=== PATIENT | female | born 1950 | race African-American/Black ===

== ENCOUNTER 2017-06-21 01:36 | Emergency (ER) | payer MEDICARE ==
[2017-06-21] MEDS ORDERED: MAGNESIUM SULFATE/D5W 2 GM/200 ML RTUPB IV ONE (01:42)
[2017-06-21] MEDS ORDERED: IPRATROPIUM/ALBUTEROL 0.5-2.5 MG/3 ML AMPUL NEB ONE (01:44)
[2017-06-21 02:02] LABS: ABSOLUTE BASOPHILS # (AUTO) 0.1 10^3/uL (0.0-0.2); ABSOLUTE EOSINOPHILS # (AUTO) 0.1 10^3/uL (0.0-0.6); ABSOLUTE LYMPHOCYTES (AUTO) 0.6 10^3/uL (0.5-4.7); ABSOLUTE MONOCYTES (AUTO) 0.5 10^3/uL (0.1-1.4); ABSOLUTE NEUT (AUTO) 5.2 10^3/uL (1.7-8.2); BASOPHILS % (AUTO) 0.8 % (0-2); EOSINOPHILS % (AUTO) 1.9 % (0-6); HEMATOCRIT 40.6 % (36.0-47.0); HEMOGLOBIN 13.5 g/dL (12.0-15.5); LYMPHOCYTES % (AUTO) 9.6 % (13-45); MEAN CORPUSCULAR HEMOGLOBIN 28.1 pg (27.0-33.4); MEAN CORPUSCULAR HGB CONC 33.4 g/dL (32.0-36.0); MEAN CORPUSCULAR VOLUME 84 fl (80-97); MONOCYTES % (AUTO) 8.1 % (3-13); PLATELET COUNT 259 10^3/uL (150-450); RED BLOOD COUNT 4.82 10^6/uL (3.72-5.28); RED CELL DISTRIBUTION WIDTH 15.1 % (11.5-14.0); SEGMENTED NEUTROPHILS % (AUTO) 79.6 % (42-78); TOTAL CELLS COUNTED % (AUTO) 100 %; WHITE BLOOD COUNT 6.6 10^3/uL (4.0-10.5)
[2017-06-21 02:19] LABS: ALANINE AMINOTRANSFERASE 29 U/L (9-52); ALBUMIN 4.5 g/dL (3.5-5.0); ALKALINE PHOSPHATASE 74 U/L (38-126); ANION GAP 8 (5-19); ASPARTATE AMINO TRANSFERASE 22 U/L (14-36); BILIRUBIN,DIRECT 0.3 mg/dL (0.0-0.4); BILIRUBIN,TOTAL 0.8 mg/dL (0.2-1.3); BLOOD UREA NITROGEN 17 mg/dL (7-20); CALCIUM 9.6 mg/dL (8.4-10.2); CARBON DIOXIDE 31 mmol/L (22-30); CHLORIDE 103 mmol/L (98-107); CREATINE KINASE 198 U/L (30-135); GLUCOSE 137 mg/dL (75-110); POTASSIUM 4.1 mmol/L (3.6-5.0); SODIUM 142.4 mmol/L (137-145); TOTAL PROTEIN 7.5 g/dL (6.3-8.2)
[2017-06-21 02:30] LABS: NT PRO BNP 92 pg/mL (5-900)
[2017-06-21 02:31] LABS: TROPONIN I < 0.012 ng/mL
[2017-06-21 02:38] LABS: VENOUS BLOOD BASE EXCESS 4.4 mmol/L; VENOUS BLOOD HCO3 32.4 mmol/L (20-32); VENOUS BLOOD PCO2 64.1 mmHg (35-63); VENOUS BLOOD PH 7.32 (7.30-7.42)
--- NOTE | 2017-06-21 02:43 | ER Document Report ---
ED Respiratory Problem - General Chief Complaint: Breathing Difficulty Stated Complaint: BREATHING DIFFICULTY Time Seen by Provider: 06/21/17 01:43 Notes: The patient is a 66-year-old female, past medical history COPD (on home 2-4 L O2 ), hypertension, presents with increasing shortness of breath over the past 3 hours. When EMS arrived, she was tripoding and found to be in the low 80's on her home O2. She received 125 mg Solu-Medrol and 7.5 mg albuterol by EMS prior to arrival. Patient says she feels slightly better after the breathing treatments, she is still short of breath. She denies chest pain, leg swelling, cough, fevers, hemoptysis, nausea, vomiting, back pain, headache, numbness, tingling or rash. TRAVEL OUTSIDE OF THE [place] IN LAST 30 DAYS: No - Related Data Allergies/Adverse Reactions: fluticasone [From Advair Diskus] Adverse Reaction (Verified 06/21/17 02:25) salmeterol [From Advair Diskus] Adverse Reaction (Verified 06/21/17 02:25) Past Medical History - General Information source: Patient - Social History Smoking Status: Current Every Day Smoker Frequency of alcohol use: None Drug Abuse: None Family History: Reviewed & Not Pertinent Patient has suicidal ideation: No Patient has homicidal ideation: No - Past Medical History Cardiac Medical History: Reports: Hx Hypercholesterolemia, Hx Hypertension Pulmonary Medical History: Reports: Hx COPD Renal/ Medical History: Denies: Hx Peritoneal Dialysis Past Surgical History: Reports: Hx Cholecystectomy, Hx Orthopedic Surgery - left ankle, Hx Tonsillectomy Review of Systems - Review of Systems Notes: REVIEW OF SYSTEMS: CONSTITUTIONAL: -fevers, -chills EENT: -eye pain, -difficulty swallowing, -nasal congestion CARDIOVASCULAR: -chest pain, -syncope. RESPIRATORY: -cough, +SOB GASTROINTESTINAL: -abdominal pain, -nausea, -vomiting, -diarrhea GENITOURINARY: -dysuria, -hematuria MUSCULOSKELETAL: -back pain, -neck pain SKIN: -rash or skin lesions. HEMATOLOGIC: -easy bruising or bleeding. LYMPHATIC: -swollen, enlarged glands. NEUROLOGICAL: -altered mental status or loss of consciousness, -headache, - neurologic symptoms PSYCHIATRIC: -anxiety, -depression. ALL OTHER SYSTEMS REVIEWED AND NEGATIVE. Physical Exam - Vital signs Vitals: Pulse Resp 84 24 H 06/21/17 01:36 06/21/17 01:36 - Notes Notes: PHYSICAL EXAMINATION: GENERAL: Well-appearing, well-nourished and in no acute distress. HEAD: Atraumatic, normocephalic. EYES: Pupils equal round and reactive to light, extraocular movements intact, sclera anicteric, conjunctiva are normal. ENT: nares patent, oropharynx clear without exudates. Moist mucous membranes. NECK: Normal range of motion, supple without lymphadenopathy LUNGS: Mild tachypnea. Decreased air movement. End-expiratory wheezing. HEART: Regular rate and rhythm without murmurs ABDOMEN: Soft, nontender, normoactive bowel sounds. No guarding, no rebound. No masses appreciated. EXTREMITIES: Normal range of motion, no pitting or edema. No cyanosis. NEUROLOGICAL: Cranial nerves grossly intact. Normal speech, normal gait. Normal sensory and motor exams. PSYCH: Normal mood, normal affect. SKIN: Warm, Dry, normal turgor, no rashes or lesions noted. Course - Re-evaluation Re-evalutation: Patient seen immediately on arrival. She is able to speak in 4 word sentences. She has tried BiPAP in the past and this is helped. Patient was placed on BiPAP with improvement of her respiratory status and wheezing. She was moving more air after 2 duonebs and magnesium. She has already received Solu-Medrol and 3 albuterol nebulizers by EMS prior to arrival. Her chest x-ray did not show any acute findings and blood work was unremarkable, including a negative d- dimer that rules out a PE. No chest pain and EKG and troponin do not show evidence of active ischemia. Patient was transitioned from BiPAP mask back to her 4 L nasal cannula that she wears at home. However, she walked 3 steps and became very dyspneic again with return of her wheezing. Patient provided continuous albuterol and will need admission for further evaluation and treatment of her severe COPD exacerbation. Her primary care physician is Dr. Mack and her business relations manager is Dr. Platt. 06/21/17 04:[address] Gutierrez (Hospitalist) and he saw the patient after she had just received 10 mg albuterol. She was taken off her BiPAP and placed back on her home 2 L nasal cannula. She was then re-ambulated about 100 feet and she did not have any desaturations below 91%. Her respiratory status also improved and she did not become short of breath. Spoke to patient and offered her admission still, but patient would like to go home since she is feeling better. She is requesting a refill of her ipratropium. Will send home with 4 more days of prednisone and follow-up at her business relations manager. Given very strict return precautions and she understands. - Vital Signs Vital signs: Temp Pulse Resp BP Pulse Ox 84 21 H 152/70 H 100 06/21/17 01:36 06/21/17 04:01 06/21/17 04:01 06/21/17 04:01 - Laboratory Result Diagrams: 06/21/17 01:45 06/21/17 01:45 Laboratory results interpreted by me: 06/21/17 06/21/17 06/21/17 01:45 01:45 01:45 RDW 15.1 H Seg Neutrophils % 79.6 H Lymphocytes % 9.6 L VBG pCO2 64.1 H VBG HCO3 32.4 H Carbon Dioxide 31 H Est GFR (Non-Af Amer) 52 L Glucose 137 H Creatine Kinase 198 H - Diagnostic Test Radiology reviewed: Image reviewed, Reports reviewed Radiology results interpreted by me: CXR: NAD - EKG Interpretation by Me EKG shows normal: Sinus rhythm, [place], Intervals, QRS Complexes, ST-T Waves Rate: Normal When compared to previous EKG there are: Previous EKG unavailable Critical Care Note - Critical Care Note Total time excluding time spent on procedures (mins): 35 Discharge - Discharge Clinical Impression: COPD exacerbation Condition: Stable Disposition: HOME, SELF-CARE Additional Instructions: BRONCHITIS WITH BRONCHOSPASM (WHEEZING): You have bronchitis with bronchospasm (wheezing). Sometimes people develop wheezing with a chest cold. This occurs either because of an underlying tendency toward asthma or because the virus itself irritates the bronchial tubes. This irritation causes cough, shortness of breath, and wheezing. Emergency treatment of bronchospasm may include adrenaline shots or bronchodilator aerosol. You may feel lightheaded and have a rapid pulse for an hour or two. Rest and get plenty of fluids. At home, we'll treat you with a bronchodilator inhaler. Corticosteroids may be required for some patients. Until you recover, avoid chemical fumes, dusts, pollens, and exercising in very cold or dry air. If you smoke, stop now! Most cases of bronchitis get better without antibiotics. We prescribe antibiotics when we believe bacteria are damaging your airways, or if there's high risk the bronchitis will worsen into pneumonia. Increase your fluid intake. A cool mist humidifier may make your lungs more comfortable. An expectorant (cough medicine that loosens phlegm) can help. Repeated episodes of bronchitis and bronchospasm may result in lung damage -- for example, chronic bronchitis, recurrent pneumonias, or emphysema. If you develop a fever, increased wheezing, chest pain, or severe shortness of breath, you should contact the doctor immediately. STEROID MEDICATION: You have been given an injection of or oral medicine of the cortisone/ steroid class. This medication is used to control inflammation or allergy. Kostas t is usually only given for a short period of time, until the acute process subsides. There are usually no side effects from short-term use of cortisone-like medications. Some persons feel an increased sense of well-being and are not sleepy at bedtime. Long-term use of cortisone medications is best avoided, unless required for a severe condition. If your condition does not remit, or relapses after the course of corticosteroid medication, you should consult your physician. USE OF ACETAMINOPHEN (Tylenol): Acetaminophen may be taken for pain relief or fever control. It's much safer than aspirin, offering a wider range of "safe" dosages. It is safe during . Some brand names are Tylenol, Panadol, Datril, Anacin 3, Tempra, and Liquiprin. Acetaminophen can be repeated every four hours. The following are maximum recommended dosages: >89 pounds or adults 650 mg to 900 mg Acetaminophen can be repeated every four hours. Maximum dose not to exceed 4000 mg a day. SMOKING: If you smoke, you should stop smoking. The tar and chemicals in cigarette smoke are harmful. Smoking has been shown to cause: emphysema chronic bronchitis lung cancer mouth and throat cancer stomach and pancreas cancer premature aging defects In addition, smoking increases ear and lung infections in children of smokers. FOLLOW-UP CARE: If you have been referred to a physician for follow-up care, call the physician s office for an appointment as you were instructed or within the next two days. If you experience worsening or a significant change in your symptoms, notify the physician immediately or return to the Emergency Department at any time for re-evaluation. Prescriptions: Ipratropium/Albuterol Sulfate [Iprat-Albut 0.5-3(2.5) mg/3 ml] 3 ml IH Q4H PRN # 30 ampul.neb PRN Reason: Prednisone [Deltasone 20 mg Tablet] 3 tab PO DAILY 4 Days tablet Forms: Elevated Blood Pressure Referrals: JUANA MACK MD [Primary Care Provider] - Follow up as needed ALEXEI PLATT MD [ACTIVE STAFF] - Follow up as needed
--- NOTE | 2017-06-21 03:04 | RADIOLOGY REPORT (SQ) ---
EXAM DESCRIPTION: CHEST SINGLE VIEW CLINICAL HISTORY: 66 years, Female, SOB COMPARISON: None. FINDINGS: Normal lung volume, clear parenchyma, normal cardiac silhouette, atherosclerosis, and intact bony thorax. IMPRESSION: No acute cardiopulmonary findings.
[2017-06-21] MEDS ORDERED: ALBUTEROL SULFATE 0.083% NEB 2.5 MG/3 ML AMPUL NEB ONE (03:29)
[2017-06-21] MEDS ORDERED: ACETAMINOPHEN 325 MG TABLET ONE (04:03)
[2017-06-21] MEDS: MAGNESIUM SULFATE/D5W 1 GM/100 ML RTUPB IV SCH ×2 (04:05→04:12)
[2017-06-21] MEDS ORDERED: ACETAMINOPHEN 325 MG TABLET PO ONE (04:13)
[2017-06-21 05:53] VITALS: BP 139/54
--- NOTE | 2017-06-21 10:21 | EKG REPORT ---
SEVERITY:- NORMAL ECG - SINUS RHYTHM : Confirmed by: Quoc Huston 21-Jun-2017 10:20:14
== END 2017-06-21 05:20 | disposition home or self-care (01) ==
LOC: ER 01:36
DX: J44.1 Chronic obstructive pulmonary disease with (acute) exacerbation (principal); R06.02 Shortness of breath; F17.200 Nicotine dependence, unspecified, uncomplicated
CPT/HCPCS: 93005; 94640 ×2; 99291; 96365; 96366; 36415; 82550; 85025; 80053; 84484; 85379; 82803; 83880; 71045; 93010; 94660; A9270 ×3; J3475; J7620

== ENCOUNTER 2017-06-24 09:55 | Inpatient (IN) | payer MEDICARE ==
--- NOTE | 2017-06-24 10:10 | ER Document Report ---
ED General - General Stated Complaint: DIFFICULTY BREATHING Time Seen by Provider: 06/24/17 10:07 Mode of Arrival: Medic Information source: Emergency Med Personnel, [facility] Records Cannot obtain history due to: Unstable vital signs Notes: 66-year-old female history of previous visit 3 days ago for shortness of breath with negative workup presents by EMS, patient was found to be satting in the 50s on room air, was given breathing treatments Solu-Medrol and placed on CPAP. Patient became less responsive and was gasping for air setting in the mid 80s TRAVEL OUTSIDE OF THE [place] IN LAST 30 DAYS: No - HPI Onset: Last week Onset/Duration: Worse Quality of pain: No pain Severity: Severe Pain Level: Denies Associated symptoms: Productive cough, Shortness of breath, Weakness Exacerbated by: Walking, Coughing Relieved by: Denies Similar symptoms previously: Yes Recently seen / treated by doctor: Yes - Related Data Allergies/Adverse Reactions: fluticasone [From Advair Diskus] Adverse Reaction (Verified 06/21/17 02:25) salmeterol [From Advair Diskus] Adverse Reaction (Verified 06/21/17 02:25) Past Medical History - Social History Smoking Status: Never Smoker Cigarette use (# per day): No Chew tobacco use (# tins/day): No Smoking Education Provided: No Family History: Reviewed & Not Pertinent - Past Medical History Cardiac Medical History: Reports: Hx Hypercholesterolemia, Hx Hypertension Pulmonary Medical History: Reports: Hx COPD Renal/ Medical History: Denies: Hx Peritoneal Dialysis Past Surgical History: Reports: Hx Cholecystectomy, Hx Orthopedic Surgery - left ankle, Hx Tonsillectomy Review of Systems - Review of Systems Notes: PHYSICAL EXAMINATION: GENERAL: Significantly ill-appearing gasping for air HEAD: Atraumatic, normocephalic. EYES: Pupils equal round and reactive to light, extraocular movements intact, conjunctiva are normal. ENT: Nares patent, oropharynx clear without exudates. Moist mucous membranes. NECK: Normal range of motion, supple without lymphadenopathy LUNGS: Decreased breath sounds all throughout hypoxic on CPAP HEART: Regular rate and rhythm without murmurs ABDOMEN: Abdomen distended Female : deferred Musculoskeletal: Normal range of motion, no pitting or edema. No cyanosis. NEUROLOGICAL: C patient is altered GCS of 5 SKIN: Warm, Dry, normal turgor, no rashes or lesions noted. -: Yes ROS unobtainable due to patient's medical condition Physical Exam - Vital signs Vitals: Pulse Ox 98 06/24/17 10:59 Course - Re-evaluation Re-evalutation: 06/24/17 10:39 Patient was immediately evaluated upon arrival to the emergency department, I intubated the patient given her GCS and hypoxemia status. Intubation occurred with no complication Lab work pending ICU admission expected 06/24/17 11:18 Patient was noted to be hypotensive, IV fluids started Levophed has been ordered peripheral, after first liter pressures have improved from 40s over 20s- 70s over 40s, Levophed has been started 06/24/17 12:07 Cental line placed, pressures improved , pt admitted ot icu - Vital Signs Vital signs: Temp Pulse Resp BP Pulse Ox 98 06/24/17 10:59 - Laboratory Result Diagrams: 06/24/17 10:05 06/24/17 11:20 Laboratory results interpreted by me: 06/24/17 06/24/17 06/24/17 10:05 10:40 11:20 RDW 15.4 H Potassium 5.1 H Carbon Dioxide 31 H Creatinine 1.43 H Est GFR ( Amer) 44 L Est GFR (Non-Af Amer) 36 L Glucose 174 H POC Glucose 222 H Calcium 7.6 L AST 101 H ALT 145 H Total Protein 5.9 L - Diagnostic Test Radiology reviewed: Image reviewed, Reports reviewed - EKG Interpretation by Me EKG shows normal: Sinus rhythm, [place], Intervals, QRS Complexes Procedures - Central Line Right Internal jugular Time completed: 11:35 Consent obtained: Yes Central line pre-insertion: Sterile PPE donned, Chloraprep applied, Sterile drapes applied Central line size (Fr.): 22 Central line lumen type: Triple Anesthetic type: 1% Lidocaine mL's of anesthesia: 5 Ultrasound guided: Yes CM at insertion site: 3 Line secured with sutures: Yes Central line post-insertion: Blood return from lumens, Biopatch applied, Sutured , Sterile dressing applied, Position confirmed w/ CXR Number of attempts: 1 Complications: No - Intubation Orotracheal Time of Intubation: 10:00 Airway evaluation: Large tongue, Neck immobility, Obese Mallampati Classification: Class 3 Medications: Etomidate, Succinylcholine Intubation method: Orotracheal Blade type: Jason Blade size: 4 ETT size: 7.5 ETT secured at: Teeth ETT secured at (cm): 22 Breath Sounds after Intubation: Equal End tidal CO2 confirmed: Yes Post Intubation Xray: Yes Intubation Complications: No complications Critical Care Note - Critical Care Note Total time excluding time spent on procedures (mins): 94 Comments: 94 minutes of critical care time spent in direct contact evaluating and reevaluating the patient, treating symptoms, reviewing labs and studies and speaking with family and consultants excluding any procedures Discharge - Discharge Clinical Impression: COPD exacerbation, Metabolic encephalopathy Respiratory failure Qualifiers: Chronicity: acute Respiratory failure complication: hypoxia and hypercapnia Qualified Code(s): J96.01 - Acute respiratory failure with hypoxia; J96.02 - Acute respiratory failure with hypercapnia; J96.02 - Acute respiratory failure with hypercapnia; J96.02 - Acute respiratory failure with hypercapnia Hypotension Qualifiers: Hypotension type: unspecified hypotension type Qualified Code(s): I95.9 - Hypotension, unspecified Condition: Critical Disposition: ADMITTED INPATIENT Admitting Provider: Hospitalist Unit Admitted: ICU Referrals: JUANA MACK MD [Primary Care Provider] - Follow up as needed
[2017-06-24 10:30] LABS: ABSOLUTE BASOPHILS # (AUTO) 0.1 10^3/uL (0.0-0.2); ABSOLUTE EOSINOPHILS # (AUTO) 0.1 10^3/uL (0.0-0.6); ABSOLUTE LYMPHOCYTES (AUTO) 2.3 10^3/uL (0.5-4.7); ABSOLUTE MONOCYTES (AUTO) 0.6 10^3/uL (0.1-1.4); ABSOLUTE NEUT (AUTO) 4.4 10^3/uL (1.7-8.2); BASOPHILS % (AUTO) 0.9 % (0-2); EOSINOPHILS % (AUTO) 0.8 % (0-6); HEMATOCRIT 43.1 % (36.0-47.0); HEMOGLOBIN 13.9 g/dL (12.0-15.5); LYMPHOCYTES % (AUTO) 31.6 % (13-45); MEAN CORPUSCULAR HEMOGLOBIN 27.8 pg (27.0-33.4); MEAN CORPUSCULAR HGB CONC 32.2 g/dL (32.0-36.0); MEAN CORPUSCULAR VOLUME 86 fl (80-97); MONOCYTES % (AUTO) 7.7 % (3-13); PLATELET COUNT 343 10^3/uL (150-450); RED BLOOD COUNT 4.98 10^6/uL (3.72-5.28); RED CELL DISTRIBUTION WIDTH 15.4 % (11.5-14.0); TOTAL CELLS COUNTED % (AUTO) 100 %; WHITE BLOOD COUNT 7.4 10^3/uL (4.0-10.5)
[2017-06-24 10:36] LABS: INTERNATIONAL RATION (INR) 0.89; PROTHROMBIN TIME 12.7 SEC (11.4-15.4)
[2017-06-24] MEDS ORDERED: FENTANYL CITRATE INJ/PF 100 MCG/2 ML AMPUL IV ONE (10:42)
[2017-06-24] MEDS: MIDAZOLAM HCL 50 MG/100 ML RTUINJ IV PRN ×3 (10:49→23:58)
--- NOTE | 2017-06-24 11:01 | RADIOLOGY REPORT (SQ) ---
EXAM DESCRIPTION: KUB/ABDOMEN (SINGLE VIEW) COMPLETED DATE/TIME: 06/24/2017 10:29 am REASON FOR STUDY: post intbation og placement COMPARISON: None. NUMBER OF VIEWS: One view. TECHNIQUE: Supine radiographic image of the abdomen acquired. LIMITATIONS: None. FINDINGS: Limited visualization of the lower chest and upper abdomen reveals the tip of the OG tube projected over the midportion of the stomach and appears to be in proper position. Lower lung zones are clear. Mild gaseous distention of the stomach. IMPRESSION: Distal OG tube appears to be in good position. TECHNICAL DOCUMENTATION: JOB ID: [id number] [employer]- All Rights Reserved
[2017-06-24] MEDS ORDERED: NOREPINEPHRINE BITARTRATE INJ/PF 4 MG/4 ML SDV IV ONE ×2 (11:09→17:50)
--- NOTE | 2017-06-24 11:11 | RADIOLOGY REPORT (SQ) ---
EXAM DESCRIPTION: CHEST SINGLE VIEW COMPLETED DATE/TIME: 06/24/2017 10:38 am REASON FOR STUDY: ETT PLACEMENT COMPARISON: None. EXAM PARAMETERS: NUMBER OF VIEWS: One view. TECHNIQUE: Single frontal radiographic view of the chest acquired. RADIATION DOSE: NA LIMITATIONS: None. FINDINGS: LUNGS AND PLEURA: No opacities, masses or pneumothorax. No pleural effusion. MEDIASTINUM AND HILAR STRUCTURES: No masses. Contour normal. HEART AND VASCULAR STRUCTURES: Heart normal in size. Normal vasculature. BONES: No acute findings. HARDWARE: Endotracheal tube in good position. Distal OG tube beneath the diaphragm. OTHER: No other significant finding. IMPRESSION: Lungs clear. Hardware in good position. TECHNICAL DOCUMENTATION: JOB ID: [id number] [employer]- All Rights Reserved
[2017-06-24] MEDS ORDERED: FENTANYL CITRATE INJ/PF 100 MCG/2 ML AMPUL ONE (11:38)
[2017-06-24 11:43] LABS: ALANINE AMINOTRANSFERASE 145 U/L (9-52); ALBUMIN 3.5 g/dL (3.5-5.0); ALKALINE PHOSPHATASE 67 U/L (38-126); ANION GAP 7 (5-19); ASPARTATE AMINO TRANSFERASE 101 U/L (14-36); BILIRUBIN,DIRECT 0.2 mg/dL (0.0-0.4); BILIRUBIN,TOTAL 0.2 mg/dL (0.2-1.3); BLOOD UREA NITROGEN 19 mg/dL (7-20); CALCIUM 7.6 mg/dL (8.4-10.2); CARBON DIOXIDE 31 mmol/L (22-30); CHLORIDE 104 mmol/L (98-107); GLUCOSE 174 mg/dL (75-110); POTASSIUM 5.1 mmol/L (3.6-5.0); SODIUM 141.9 mmol/L (137-145); TOTAL PROTEIN 5.9 g/dL (6.3-8.2)
--- NOTE | 2017-06-24 12:25 | RADIOLOGY REPORT (SQ) ---
EXAM DESCRIPTION: CHEST SINGLE VIEW COMPLETED DATE/TIME: 06/24/2017 12:12 pm REASON FOR STUDY: CENTRAL LINE PLACEMENT COMPARISON: None. EXAM PARAMETERS: NUMBER OF VIEWS: One view. TECHNIQUE: Single frontal radiographic view of the chest acquired. RADIATION DOSE: NA LIMITATIONS: None. FINDINGS: LUNGS AND PLEURA: No opacities, masses or pneumothorax. No pleural effusion. MEDIASTINUM AND HILAR STRUCTURES: No masses. Contour normal. HEART AND VASCULAR STRUCTURES: Heart normal in size. Normal vasculature. BONES: No acute findings. HARDWARE: Tip of the central line projected over the caval atrial junction. Endotracheal tube in pro per position. Tip 4.4 cm proximal to the carole. OTHER: No other significant finding. IMPRESSION: Lungs remain clear. Tip of the endotracheal tube and tip of the central line appear to be at satisfactory levels. TECHNICAL DOCUMENTATION: JOB ID: [id number] [employer]- All Rights Reserved
[2017-06-24 12:33] LABS: ARTERIAL BLOOD BASE EXCESS -2.6 mmol/L; ARTERIAL BLOOD H2CO3 4.76 mmol/L (1.05-1.35); ARTERIAL BLOOD HCO3 34.2 mmol/L (20-26); ARTERIAL BLOOD O2 SATURATION 89.8 % (94-98); ARTERIAL BLOOD PO2 93.1 mmHg (80-100); ARTERIAL BLOOD TOTAL CO2 39.1 mmol/L (21-25)
[2017-06-24 12:37] LABS: ARTERIAL BLOOD FIO2 15L; ARTERIAL BLOOD PCO2 158.1 mmHg (35-45); ARTERIAL BLOOD PH 6.95 (7.35-7.45)
[2017-06-24 12:59] LABS: APPEARANCE,URINE CLOUDY; BILIRUBIN,URINE NEGATIVE (NEGATIVE); GLUCOSE, URINE 50 mg/dL (NEGATIVE); KETONES,URINE NEGATIVE (NEGATIVE); LEUKOCYTE ESTERASE,URINE NEGATIVE (NEGATIVE); NITRITE,URINE NEGATIVE (NEGATIVE); PROTEIN,URINE >=500 mg/dL (NEGATIVE); URINE SPECIFIC GRAVITY 1.022
[2017-06-24 13:01] LABS: COLOR,URINE YELLOW
[2017-06-24] MEDS ORDERED: ETOMIDATE INJ/PF 20 MG/10 ML SDV IV ONE (13:12)
[2017-06-24] MEDS ORDERED: SUCCINYLCHOLINE CHLORIDE INJ 200 MG/10 ML VIAL IV ONE (13:12)
[2017-06-24] MEDS ORDERED: ACETAMINOPHEN 650 MG SUPP.RECT PR PRN (13:17)
--- NOTE | 2017-06-24 13:17 | EKG REPORT ---
SEVERITY:- OTHERWISE NORMAL ECG - SINUS TACHYCARDIA : Confirmed by: Neva Bo MD 24-Jun-2017 13:16:38
[2017-06-24] MEDS ORDERED: SUCCINYLCHOLINE CHLORIDE INJ 200 MG/10 ML VIAL ONE (13:30)
[2017-06-24] MEDS: NORMAL SALINE 1000 ML 1,000 ML IV PRN ×2 (14:43→23:58)
[2017-06-24] MEDS ORDERED: ENOXAPARIN SODIUM INJ 40 MG/0.4 ML DISP.SYRIN SUBCUT ONE (15:30)
[2017-06-24] MEDS: IPRATROPIUM/ALBUTEROL 0.5-2.5 MG/3 ML AMPUL NEB SCH ×2 (16:10→19:29)
[2017-06-24] MEDS ORDERED: INFLUENZA ADLT QUAD (36MOS+) 2017-18 VAC 0.5 ML SYR IM PRN (16:56)
[2017-06-24 17:26] LABS: ARTERIAL BLOOD BASE EXCESS -2.5 mmol/L; ARTERIAL BLOOD H2CO3 2.02 mmol/L (1.05-1.35); ARTERIAL BLOOD HCO3 26.6 mmol/L (20-26); ARTERIAL BLOOD O2 SATURATION 94.1 % (94-98); ARTERIAL BLOOD PH 7.22 (7.35-7.45); ARTERIAL BLOOD PO2 85.4 mmHg (80-100); ARTERIAL BLOOD TOTAL CO2 28.6 mmol/L (21-25)
[2017-06-24 17:29] LABS: ARTERIAL BLOOD FIO2 50%
[2017-06-24] MEDS ORDERED: PROPOFOL 100 ML IV ONE (17:40)
--- NOTE | 2017-06-24 18:27 | PDOC H&P ---
History of Present Illness Admission Date/PCP: 06/24/17 12:47 JUANA MACK MD History of Present Illness: GIACOMO CARRILLO is a 66 year old female with COPD who presented to the emergency department today in respiratory distress. Due to difficulty breathing at home, her family called EMS. Her oxygen saturation was reportedly 54% on room air. She was started on BiPAP with subsequent improvement in her O2 saturation, into the 80s. When she arrived to the ED, she was confused. Within minutes, she was intubated. She became acutely hypotensive with blood pressure of 50/40. She was started on IV fluids as well as Levophed. According to her daughter, she was experiencing cold-like symptoms for about a week. Complained of shortness of breath, and not being able to get air. She felt congested. She feels symptomatic despite using her nebulizers at home. She only wears oxygen 2 L via nasal cannula. She reportedly felt warm but no reported fevers. She was seen in emergency department 2 days ago and discharged back home, as she was not felt to be acutely ill. Past Medical History Cardiac Medical History: Reports: Hyperlipidema, Hypertension Pulmonary Medical History: Reports: Asthma, Chronic Obstructive Pulmonary Disease (COPD), Sleep Apnea Past Surgical History Past Surgical History: Reports: Cholecystectomy, Orthopedic Surgery - left ankle , Tonsillectomy Social History Information Source: Relative, Emergency Med Personnel Lives with: Family Smoking Status: Never Smoker Drugs: None Hx Prescription Drug Abuse: No - Advance Directive Resuscitation Status: Full Code Family History Family History: Reviewed & Not Pertinent Parental Family History Reviewed: No Children Family History Reviewed: No Sibling(s) Family History Reviewed.: No Medication/Allergy Home Medications: Amlodipine Besylate [Norvasc 5 mg Tablet] 5 mg PO DAILY 06/24/17 Diclofenac Sodium [Voltaren] 1 applic TOP BID 06/24/17 Fluticasone Propionate [Flonase Nasal [place] 50 Mcg/[place] 16 gm] 2 sprays NASL DAILY 06/24/17 Lisinopril [Prinivil] 20 mg PO DAILY 06/24/17 Montelukast Sodium [Singulair 10 mg Tablet] 10 mg PO QHS 06/24/17 Pravastatin Sodium [Pravachol] 40 mg PO QHS 06/24/17 Tizanidine HCl [Zanaflex 4 mg Tablet] 4 mg PO Q6HP PRN 06/24/17 Allergies/Adverse Reactions: fluticasone [From Advair Diskus] Adverse Reaction (Verified 06/21/17 02:25) salmeterol [From Advair Diskus] Adverse Reaction (Verified 06/21/17 02:25) Review of Systems ROS unobtainable: Due to endotracheal tube Physical Exam Vital Signs: Temp Pulse Resp BP Pulse Ox 16 108/74 100 06/24/17 17:16 06/24/17 17:31 06/24/17 17:31 Intake & Output 06/23/17 06/24/17 06/25/17 06:59 06:59 06:59 Output Total 50 Balance -50 Weight 106 kg General appearance: PRESENT: obese Head exam: PRESENT: atraumatic, normocephalic Eye exam: PRESENT: conjunctiva pink Neck exam: PRESENT: full ROM Respiratory exam: PRESENT: wheezes Cardiovascular exam: PRESENT: RRR. ABSENT: diastolic murmur, rubs, systolic murmur GI/Abdominal exam: PRESENT: diminished bowel sounds, soft Rectal exam: PRESENT: deferred Neurological exam: PRESENT: other - Sedated Skin exam: PRESENT: dry, intact, warm. ABSENT: cyanosis, rash Results Laboratory Results: 06/24/17 16:00 Carbonic Acid 2.02 H HCO3/H2CO3 Ratio 13:1 ABG pH 7.22 L ABG pCO2 67.0 H ABG pO2 85.4 ABG HCO3 26.6 H ABG O2 Saturation 94.1 ABG Base Excess -2.5 FiO2 50% Impressions: Chest X-Ray 06/24/17 00:00 IMPRESSION: Lungs remain clear. Tip of the endotracheal tube and tip of the central line appear to be at satisfactory levels. KUB X-Ray 06/24/17 10:17 IMPRESSION: Distal OG tube appears to be in good position. Assessment & Plan - Diagnosis (1) Acute and chronic respiratory failure Qualifiers: Respiratory failure complication: hypoxia and hypercapnia Qualified Code(s) : J96.21 - Acute and chronic respiratory failure with hypoxia; J96.22 - Acute and chronic respiratory failure with hypercapnia; J96.22 - Acute and chronic respiratory failure with hypercapnia; J96.22 - Acute and chronic respiratory failure with hypercapnia Is this a current diagnosis for this admission?: Yes Plan: ICU admit. Continue ventilator. Consult Dr Sousa for ventilator management (2) COPD exacerbation Plan: Nebs, and IV steroids. Continue ventilation. (3) Hypotension Qualifiers: Hypotension type: unspecified hypotension type Qualified Code(s): I95.9 - Hypotension, unspecified Plan: Hold BP meds. Levophed off for now. (4) Hypertension Qualifiers: Hypertension type: essential hypertension Qualified Code(s): I10 - Essential (primary) hypertension Is this a current diagnosis for this admission?: Yes Plan: Hold BP meds for now. - Time Time Spent: 50 to 70 Minutes Medications reviewed and adjusted accordingly: Yes Anticipated discharge: Home - Inpatient Certification Based on my medical assessment, after consideration of the patient's comorbidities, presenting symptoms, or acuity I expect that the services needed warrant INPATIENT care.: Yes I certify that my determination is in accordance with my understanding of Medicare's requirements for reasonable and necessary INPATIENT services [42 CFR 412.3e].: Yes Medical Necessity: Need Close Monitoring Due to Risk of Patient Decompensation, Need for Nebulizer Therapy and Monitoring of Response, Risk of Complication if Not Cared For in Hospital
[2017-06-24 18:50] LABS: ARTERIAL BLOOD FIO2 50%; ARTERIAL BLOOD H2CO3 1.65 mmol/L (1.05-1.35); ARTERIAL BLOOD HCO3 26.2 mmol/L (20-26); ARTERIAL BLOOD O2 SATURATION 98.7 % (94-98); ARTERIAL BLOOD PCO2 54.7 mmHg (35-45); ARTERIAL BLOOD PO2 150.4 mmHg (80-100); ARTERIAL BLOOD TOTAL CO2 27.9 mmol/L (21-25)
[2017-06-24] MEDS ORDERED: METHYLPREDNISOLONE INJ 40 MG/1 ML SDV IV ONE (19:00)
[2017-06-24] MEDS ORDERED: DEXTROSE 5%-WATER 250 ML with NOREPINEPHRINE BITARTRATE 4 MG IV PRN ×2 (20:52)
[2017-06-25] MEDS: IPRATROPIUM/ALBUTEROL 0.5-2.5 MG/3 ML AMPUL NEB SCH ×7 (00:31→23:58)
[2017-06-25] MEDS: METHYLPREDNISOLONE INJ 40 MG/1 ML SDV IV SCH ×3 (02:36→17:10)
[2017-06-25] MEDS: MIDAZOLAM HCL 50 MG/100 ML RTUINJ IV PRN ×7 (03:25→23:55)
[2017-06-25 06:02] LABS: ARTERIAL BLOOD H2CO3 1.25 mmol/L (1.05-1.35); ARTERIAL BLOOD HCO3 23.3 mmol/L (20-26); ARTERIAL BLOOD O2 SATURATION 98.2 % (94-98); ARTERIAL BLOOD PCO2 41.6 mmHg (35-45); ARTERIAL BLOOD PH 7.37 (7.35-7.45); ARTERIAL BLOOD PO2 119.1 mmHg (80-100); ARTERIAL BLOOD TOTAL CO2 24.6 mmol/L (21-25)
[2017-06-25 06:03] LABS: ARTERIAL BLOOD FIO2 50%
[2017-06-25 06:08] LABS: ABSOLUTE LYMPHOCYTES (AUTO) 0.6 10^3/uL (0.5-4.7); ABSOLUTE MONOCYTES (AUTO) 0.4 10^3/uL (0.1-1.4); ABSOLUTE NEUT (AUTO) 2.2 10^3/uL (1.7-8.2); BASOPHILS % (AUTO) 0.1 % (0-2); HEMATOCRIT 34.6 % (36.0-47.0); LYMPHOCYTES % (AUTO) 17.4 % (13-45); MEAN CORPUSCULAR HEMOGLOBIN 27.5 pg (27.0-33.4); MEAN CORPUSCULAR HGB CONC 32.6 g/dL (32.0-36.0); MEAN CORPUSCULAR VOLUME 84 fl (80-97); MONOCYTES % (AUTO) 12.8 % (3-13); PLATELET COUNT 200 10^3/uL (150-450); RED CELL DISTRIBUTION WIDTH 15.5 % (11.5-14.0); SEGMENTED NEUTROPHILS % (AUTO) 69.7 % (42-78); TOTAL CELLS COUNTED % (AUTO) 100 %; WHITE BLOOD COUNT 3.2 10^3/uL (4.0-10.5)
[2017-06-25 06:09] LABS: HEMOGLOBIN 11.3 g/dL (12.0-15.5)
[2017-06-25 06:15] LABS: ALANINE AMINOTRANSFERASE 115 U/L (9-52); ALBUMIN 3.3 g/dL (3.5-5.0); ALKALINE PHOSPHATASE 58 U/L (38-126); ANION GAP 8 (5-19); ASPARTATE AMINO TRANSFERASE 43 U/L (14-36); BILIRUBIN,DIRECT 0.3 mg/dL (0.0-0.4); BILIRUBIN,TOTAL 0.3 mg/dL (0.2-1.3); BLOOD UREA NITROGEN 24 mg/dL (7-20); CALCIUM 7.7 mg/dL (8.4-10.2); CARBON DIOXIDE 25 mmol/L (22-30); CHLORIDE 109 mmol/L (98-107); GLUCOSE 97 mg/dL (75-110); PHOSPHORUS 3.5 mg/dL (2.5-4.5); POTASSIUM 4.4 mmol/L (3.6-5.0); SODIUM 142.2 mmol/L (137-145); TOTAL PROTEIN 5.5 g/dL (6.3-8.2)
--- NOTE | 2017-06-25 08:35 | RADIOLOGY REPORT (SQ) ---
EXAM DESCRIPTION: CHEST SINGLE VIEW COMPLETED DATE/TIME: 06/25/2017 8:06 am REASON FOR STUDY: intubated COMPARISON: AP chest 06/24/2017, 06/21/2017 EXAM PARAMETERS: NUMBER OF VIEWS: One view. TECHNIQUE: Single frontal radiographic view of the chest acquired. RADIATION DOSE: NA LIMITATIONS: None. FINDINGS: LUNGS AND PLEURA: No opacities, masses or pneumothorax. No pleural effusion. MEDIASTINUM AND HILAR STRUCTURES: No masses. Contour normal. HEART AND VASCULAR STRUCTURES: Heart normal in size. Normal vasculature. BONES: No acute findings. HARDWARE: Endotracheal tube tip 5 cm above the carole. Nasogastric tube tip and side port in the sto mach. Right jugular central line tip superior vena cava. OTHER: No other significant finding. IMPRESSION: Tubes and lines in good positioning. No focal infiltrates. No pleural effusion. No pneumothorax TECHNICAL DOCUMENTATION: JOB ID: [id number] [employer]- All Rights Reserved
--- NOTE | 2017-06-25 10:05 | PDOC PROGRESS REPORT ---
Subjective Progress Note for:: 06/25/17 Subjective:: Sedated. Reason For Visit: 66-year-old female with COPD, O2 dependent, who presented to the emergency department with acute shortness of breath that rapidly decompensated in the ED requiring urgent intubation. She has been on the ventilator since admission. She is in the ICU. Pulmonary has been consulted. Physical Exam Vital Signs: Temp Pulse Resp BP Pulse Ox 99.1 F 71 22 H 124/70 99 06/25/17 08:00 06/25/17 08:00 06/25/17 08:00 06/25/17 08:00 06/25/17 08:00 Intake & Output 06/24/17 06/25/17 06/26/17 06:59 06:59 06:59 Intake Total 2282 Output Total 500 100 Balance 1782 -100 Weight 98.9 kg General appearance: PRESENT: no acute distress, obese Head exam: PRESENT: atraumatic, normocephalic Respiratory exam: PRESENT: wheezes Cardiovascular exam: PRESENT: RRR. ABSENT: diastolic murmur, rubs, systolic murmur GI/Abdominal exam: PRESENT: diminished bowel sounds, soft Neurological exam: PRESENT: other - Sedated, but is able to squeeze my fingers when asked. Skin exam: PRESENT: dry, intact, warm. ABSENT: cyanosis, rash Results Laboratory Results: 06/25/17 05:42 06/25/17 05:42 06/24/17 06/24/17 06/25/17 16:00 18:30 05:42 WBC 3.2 L RBC 4.10 Hgb 11.3 L D Hct 34.6 L MCV 84 MCH 27.5 MCHC 32.6 RDW 15.5 H Plt Count 200 Seg Neutrophils % 69.7 Lymphocytes % 17.4 Monocytes % 12.8 Eosinophils % 0.0 Basophils % 0.1 Absolute Neutrophils 2.2 Absolute Lymphocytes 0.6 Absolute Monocytes 0.4 Absolute Eosinophils 0.0 Absolute Basophils 0.0 Carbonic Acid 2.02 H 1.65 H HCO3/H2CO3 Ratio 13:1 15:1 ABG pH 7.22 L 7.30 L ABG pCO2 67.0 H 54.7 H ABG pO2 85.4 150.4 H ABG HCO3 26.6 H 26.2 H ABG O2 Saturation 94.1 98.7 H ABG Base Excess -2.5 -1.0 FiO2 50% 50% Sodium Potassium Chloride Carbon Dioxide Anion Gap BUN Creatinine Est GFR ( Amer) Est GFR (Non-Af Amer) Glucose Calcium Phosphorus Magnesium Total Bilirubin AST ALT Alkaline Phosphatase Total Protein Albumin 06/25/17 06/25/17 05:42 05:42 WBC RBC Hgb Hct MCV MCH MCHC RDW Plt Count Seg Neutrophils % Lymphocytes % Monocytes % Eosinophils % Basophils % Absolute Neutrophils Absolute Lymphocytes Absolute Monocytes Absolute Eosinophils Absolute Basophils Carbonic Acid 1.25 HCO3/H2CO3 Ratio 18:1 ABG pH 7.37 ABG pCO2 41.6 ABG pO2 119.1 H ABG HCO3 23.3 ABG O2 Saturation 98.2 H ABG Base Excess -2.0 FiO2 50% Sodium 142.2 Potassium 4.4 Chloride 109 H Carbon Dioxide 25 Anion Gap 8 BUN 24 H Creatinine 1.18 Est GFR ( Amer) 55 L Est GFR (Non-Af Amer) 46 L Glucose 97 Calcium 7.7 L Phosphorus 3.5 Magnesium 2.1 Total Bilirubin 0.3 AST 43 H ALT 115 H Alkaline Phosphatase 58 Total Protein 5.5 L Albumin 3.3 L Impressions: KUB X-Ray 06/24/17 10:17 IMPRESSION: Distal OG tube appears to be in good position. Chest X-Ray 06/25/17 00:00 IMPRESSION: Tubes and lines in good positioning. No focal infiltrates. No pleural effusion. No pneumothorax Assessment & Plan - Diagnosis (1) Acute and chronic respiratory failure Qualifiers: Respiratory failure complication: hypoxia and hypercapnia Qualified Code(s) : J96.21 - Acute and chronic respiratory failure with hypoxia; J96.22 - Acute and chronic respiratory failure with hypercapnia; J96.22 - Acute and chronic respiratory failure with hypercapnia; J96.22 - Acute and chronic respiratory failure with hypercapnia Is this a current diagnosis for this admission?: Yes Plan: ICU admit. Continue ventilator. Appreciate Dr. Sousa assistance with ventilator management. (2) COPD exacerbation Plan: Continue nebs, and IV steroids. Continue ventilation. (3) Hypotension Qualifiers: Hypotension type: unspecified hypotension type Qualified Code(s): I95.9 - Hypotension, unspecified Plan: Resolved. Continue to hold blood pressure medications for now. (4) Hypertension Qualifiers: Hypertension type: essential hypertension Qualified Code(s): I10 - Essential (primary) hypertension Is this a current diagnosis for this admission?: Yes Plan: Hold BP meds for now. - Time Time Spent with patient: 25-34 minutes Medications reviewed and adjusted accordingly: Yes Anticipated discharge: Home - Inpatient Certification Medical Necessity: Failure to Improve With Outpatient Therapy, Significant Comorbidiites Make Outpatient Treatment Too Risky
[2017-06-25] MEDS: PANTOPRAZOLE SODIUM 40 MG VIAL IV SCH (10:21)
[2017-06-25] MEDS: NORMAL SALINE 1000 ML 1,000 ML IV PRN ×2 (10:22→22:18)
[2017-06-25] MEDS: ENOXAPARIN SODIUM INJ 40 MG/0.4 ML DISP.SYRIN SUBCUT SCH (10:23)
[2017-06-25] MEDS ORDERED: OSELTAMIVIR PHOSPHATE 75 MG CAPSULE PO ONE (13:00)
[2017-06-25] MEDS: BUDESONIDE NEB 0.5 MG/2 ML AMPUL NEB SCH (20:01)
[2017-06-25] MEDS: PROPOFOL 100 ML IV PRN ×2 (20:27→23:55)
[2017-06-25] MEDS: OSELTAMIVIR PHOSPHATE 75 MG CAPSULE PO SCH (22:18)
[2017-06-26] MEDS: METHYLPREDNISOLONE INJ 40 MG/1 ML SDV IV SCH ×3 (02:04→18:22)
[2017-06-26] MEDS: IPRATROPIUM/ALBUTEROL 0.5-2.5 MG/3 ML AMPUL NEB SCH ×6 (04:14→23:54)
[2017-06-26] MEDS: MIDAZOLAM HCL 50 MG/100 ML RTUINJ IV PRN (04:24)
[2017-06-26] MEDS: PROPOFOL 100 ML IV PRN (04:25)
[2017-06-26 06:09] LABS: ABSOLUTE LYMPHOCYTES (AUTO) 0.5 10^3/uL (0.5-4.7); ABSOLUTE MONOCYTES (AUTO) 0.2 10^3/uL (0.1-1.4); ABSOLUTE NEUT (AUTO) 3.3 10^3/uL (1.7-8.2); BASOPHILS % (AUTO) 0.1 % (0-2); EOSINOPHILS % (AUTO) 0.1 % (0-6); HEMATOCRIT 34.2 % (36.0-47.0); HEMOGLOBIN 11.3 g/dL (12.0-15.5); LYMPHOCYTES % (AUTO) 11.6 % (13-45); MEAN CORPUSCULAR HEMOGLOBIN 27.8 pg (27.0-33.4); MEAN CORPUSCULAR VOLUME 84 fl (80-97); PLATELET COUNT 184 10^3/uL (150-450); RED BLOOD COUNT 4.06 10^6/uL (3.72-5.28); RED CELL DISTRIBUTION WIDTH 15.4 % (11.5-14.0); SEGMENTED NEUTROPHILS % (AUTO) 83.2 % (42-78); TOTAL CELLS COUNTED % (AUTO) 100 %; WHITE BLOOD COUNT 3.9 10^3/uL (4.0-10.5)
[2017-06-26 06:10] LABS: ARTERIAL BLOOD BASE EXCESS -0.7 mmol/L; ARTERIAL BLOOD H2CO3 1.19 mmol/L (1.05-1.35); ARTERIAL BLOOD HCO3 23.9 mmol/L (20-26); ARTERIAL BLOOD O2 SATURATION 94.2 % (94-98); ARTERIAL BLOOD PCO2 39.5 mmHg (35-45); ARTERIAL BLOOD PO2 70.3 mmHg (80-100); ARTERIAL BLOOD TOTAL CO2 25.1 mmol/L (21-25)
[2017-06-26 06:11] LABS: ARTERIAL BLOOD FIO2 30
[2017-06-26] MEDS: NORMAL SALINE 1000 ML 1,000 ML IV PRN ×2 (06:19→18:27)
[2017-06-26 06:37] LABS: ALANINE AMINOTRANSFERASE 86 U/L (9-52); ALBUMIN 3.2 g/dL (3.5-5.0); ALKALINE PHOSPHATASE 54 U/L (38-126); ANION GAP 9 (5-19); ASPARTATE AMINO TRANSFERASE 22 U/L (14-36); BILIRUBIN,DIRECT 0.2 mg/dL (0.0-0.4); BILIRUBIN,TOTAL 0.4 mg/dL (0.2-1.3); BLOOD UREA NITROGEN 19 mg/dL (7-20); CALCIUM 8.3 mg/dL (8.4-10.2); CARBON DIOXIDE 22 mmol/L (22-30); CHLORIDE 111 mmol/L (98-107); GLUCOSE 134 mg/dL (75-110); POTASSIUM 4.3 mmol/L (3.6-5.0); SODIUM 141.8 mmol/L (137-145); TOTAL PROTEIN 5.5 g/dL (6.3-8.2)
--- NOTE | 2017-06-26 06:53 | RADIOLOGY REPORT (SQ) ---
EXAM DESCRIPTION: CHEST SINGLE VIEW CLINICAL HISTORY: respfailure COMPARISON: 06/25/2017 FINDINGS: Single frontal view of the chest. Endotracheal tube with tip at the level of the clavicles. NG tube with tip below the diaphragm. Right IJ central venous catheter with tip at the atriocaval junction. After scar calcification aortic arch. Heart is not enlarged. No consolidation, pneumothorax, or pleural effusion. No new osseous abnormalities. Upper abdominal soft tissues are unremarkable. IMPRESSION: 1. No significant interval change.
[2017-06-26] MEDS: BUDESONIDE NEB 0.5 MG/2 ML AMPUL NEB SCH ×2 (08:47→20:10)
[2017-06-26] MEDS: PANTOPRAZOLE SODIUM 40 MG VIAL IV SCH (10:33)
[2017-06-26] MEDS: ENOXAPARIN SODIUM INJ 40 MG/0.4 ML DISP.SYRIN SUBCUT SCH (10:33)
[2017-06-26] MEDS: OSELTAMIVIR PHOSPHATE 75 MG CAPSULE PO SCH ×2 (10:35→21:48)
[2017-06-26] MEDS ORDERED: DEXAMETHASONE SOD PHOSPHATE INJ 4 MG/1 ML VIAL IV ONE (11:30)
[2017-06-26 13:42] LABS: ARTERIAL BLOOD BASE EXCESS -1.1 mmol/L; ARTERIAL BLOOD FIO2 40%; ARTERIAL BLOOD H2CO3 1.82 mmol/L (1.05-1.35); ARTERIAL BLOOD HCO3 26.8 mmol/L (20-26); ARTERIAL BLOOD O2 SATURATION 96.1 % (94-98); ARTERIAL BLOOD PCO2 60.5 mmHg (35-45); ARTERIAL BLOOD PH 7.27 (7.35-7.45); ARTERIAL BLOOD PO2 94.9 mmHg (80-100); ARTERIAL BLOOD TOTAL CO2 28.7 mmol/L (21-25)
--- NOTE | 2017-06-26 13:45 | PDOC PROGRESS REPORT ---
Subjective Progress Note for:: 06/26/17 Subjective:: She was extubated today. She is alert and on continuous BiPAP. She is also in bilateral wrist restraints to prevent her from removing the mask. Her family is at the bedside. Reason For Visit: ACUTE RESPIRATORY FAILURE WITH HYPERCARBIA Physical Exam Vital Signs: Temp Pulse Resp BP Pulse Ox 99.0 F 119 H 16 194/95 H 92 06/26/17 12:00 06/26/17 12:00 06/26/17 12:00 06/26/17 12:00 06/26/17 12:00 Intake & Output 06/25/17 06/26/17 06/27/17 06:59 06:59 06:59 Intake Total 2282 3371 Output Total 500 1750 955 Balance 1782 1621 -955 Weight 98.9 kg 100.3 kg General appearance: PRESENT: no acute distress, obese Head exam: PRESENT: atraumatic, normocephalic Eye exam: PRESENT: EOMI, PERRLA Neck exam: PRESENT: full ROM. ABSENT: JVD Respiratory exam: PRESENT: unlabored, wheezes - faint expiratory Cardiovascular exam: PRESENT: RRR. ABSENT: diastolic murmur, gallop, systolic murmur GI/Abdominal exam: PRESENT: normal bowel sounds, soft. ABSENT: distended, tenderness Neurological exam: PRESENT: alert Results Laboratory Results: 06/26/17 05:25 06/26/17 05:25 06/26/17 06/26/17 06/26/17 05:25 05:25 05:25 WBC 3.9 L RBC 4.06 Hgb 11.3 L Hct 34.2 L MCV 84 MCH 27.8 MCHC 33.0 RDW 15.4 H Plt Count 184 Seg Neutrophils % 83.2 H Lymphocytes % 11.6 L Monocytes % 5.0 Eosinophils % 0.1 Basophils % 0.1 Absolute Neutrophils 3.3 Absolute Lymphocytes 0.5 Absolute Monocytes 0.2 Absolute Eosinophils 0.0 Absolute Basophils 0.0 Carbonic Acid 1.19 HCO3/H2CO3 Ratio 20:1 ABG pH 7.40 ABG pCO2 39.5 ABG pO2 70.3 L ABG HCO3 23.9 ABG O2 Saturation 94.2 ABG Base Excess -0.7 FiO2 30 Sodium 141.8 Potassium 4.3 Chloride 111 H Carbon Dioxide 22 Anion Gap 9 BUN 19 Creatinine 0.96 Est GFR ( Amer) > 60 Est GFR (Non-Af Amer) 58 L Glucose 134 H Calcium 8.3 L Phosphorus 3.0 Magnesium 2.3 Total Bilirubin 0.4 AST 22 ALT 86 H Alkaline Phosphatase 54 Total Protein 5.5 L Albumin 3.2 L Impressions: KUB X-Ray 06/24/17 10:17 IMPRESSION: Distal OG tube appears to be in good position. Chest X-Ray 06/26/17 06:00 IMPRESSION: 1. No significant interval change. Assessment & Plan - Diagnosis (1) Acute and chronic respiratory failure Qualifiers: Respiratory failure complication: hypoxia and hypercapnia Qualified Code(s) : J96.21 - Acute and chronic respiratory failure with hypoxia; J96.22 - Acute and chronic respiratory failure with hypercapnia; J96.22 - Acute and chronic respiratory failure with hypercapnia; J96.22 - Acute and chronic respiratory failure with hypercapnia Is this a current diagnosis for this admission?: Yes Plan: ICU admit. s/p extubation today. Appreciate Dr. Sousa assistance with ventilator management. (2) COPD exacerbation Plan: Continue nebs, and IV steroids. Continue BiPAP. (3) Hypotension Qualifiers: Hypotension type: unspecified hypotension type Qualified Code(s): I95.9 - Hypotension, unspecified Plan: Resolved. (4) Hypertension Qualifiers: Hypertension type: essential hypertension Qualified Code(s): I10 - Essential (primary) hypertension Is this a current diagnosis for this admission?: Yes Plan: Resume home BP meds now. She takes lisinopril and Norvasc. - Time Time Spent with patient: 25-34 minutes Medications reviewed and adjusted accordingly: Yes Anticipated discharge: Home - Inpatient Certification Based on my medical assessment, after consideration of the patient's comorbidities, presenting symptoms, or acuity I expect that the services needed warrant INPATIENT care.: Yes I certify that my determination is in accordance with my understanding of Medicare's requirements for reasonable and necessary INPATIENT services [42 CFR 412.3e].: Yes Medical Necessity: Need Close Monitoring Due to Risk of Patient Decompensation, Need For Continuous Telemetry Monitoring
[2017-06-26] MEDS ORDERED: AMLODIPINE BESYLATE 5 MG TABLET PO ONE (14:00)
[2017-06-26] MEDS ORDERED: LISINOPRIL 10 MG TABLET PO ONE (14:00)
--- NOTE | 2017-06-26 18:22 | Physician Advisory Note ---
Physician Advisor ProgressNote .: Pursuant to the plan for [facility], I have reviewed the medical record for this patient. Physician Advisor Statement: Please consider documenting, if you agree: 1. " shock, present on admission, requiring Levophed after IVF to achieve adequate BP" (Septic type? - if so, from what? or Hypovolemic? Cardiogenic? ...) 2. "Acute encephalopathy with total GCS of 5-6 initially, due to " ( shock? sepsis? ac resp failure?) Thanks! CK
[2017-06-27] MEDS: NORMAL SALINE 1000 ML 1,000 ML IV PRN (03:06)
[2017-06-27] MEDS: METHYLPREDNISOLONE INJ 40 MG/1 ML SDV IV SCH (03:07)
[2017-06-27] MEDS: IPRATROPIUM/ALBUTEROL 0.5-2.5 MG/3 ML AMPUL NEB SCH (03:57)
[2017-06-27 05:07] LABS: ARTERIAL BLOOD BASE EXCESS 3.9 mmol/L; ARTERIAL BLOOD H2CO3 1.75 mmol/L (1.05-1.35); ARTERIAL BLOOD O2 SATURATION 96.6 % (94-98); ARTERIAL BLOOD PCO2 58.3 mmHg (35-45); ARTERIAL BLOOD PH 7.34 (7.35-7.45); ARTERIAL BLOOD PO2 93.5 mmHg (80-100); ARTERIAL BLOOD TOTAL CO2 32.8 mmol/L (21-25)
[2017-06-27 05:12] LABS: ARTERIAL BLOOD FIO2 40%
[2017-06-27 05:15] LABS: ABSOLUTE LYMPHOCYTES (AUTO) 0.7 10^3/uL (0.5-4.7); ABSOLUTE MONOCYTES (AUTO) 0.5 10^3/uL (0.1-1.4); ABSOLUTE NEUT (AUTO) 7.5 10^3/uL (1.7-8.2); BASOPHILS % (AUTO) 0.2 % (0-2); HEMOGLOBIN 11.8 g/dL (12.0-15.5); LYMPHOCYTES % (AUTO) 8.1 % (13-45); MEAN CORPUSCULAR HEMOGLOBIN 27.5 pg (27.0-33.4); MEAN CORPUSCULAR HGB CONC 32.6 g/dL (32.0-36.0); MEAN CORPUSCULAR VOLUME 84 fl (80-97); MONOCYTES % (AUTO) 5.8 % (3-13); PLATELET COUNT 214 10^3/uL (150-450); RED BLOOD COUNT 4.28 10^6/uL (3.72-5.28); RED CELL DISTRIBUTION WIDTH 14.9 % (11.5-14.0); SEGMENTED NEUTROPHILS % (AUTO) 85.9 % (42-78); TOTAL CELLS COUNTED % (AUTO) 100 %
[2017-06-27 05:17] LABS: WHITE BLOOD COUNT 8.8 10^3/uL (4.0-10.5)
[2017-06-27 05:24] LABS: ALANINE AMINOTRANSFERASE 115 U/L (9-52); ALBUMIN 3.2 g/dL (3.5-5.0); ALKALINE PHOSPHATASE 55 U/L (38-126); ANION GAP 7 (5-19); ASPARTATE AMINO TRANSFERASE 44 U/L (14-36); BILIRUBIN,DIRECT 0.2 mg/dL (0.0-0.4); BILIRUBIN,TOTAL 0.5 mg/dL (0.2-1.3); BLOOD UREA NITROGEN 21 mg/dL (7-20); CALCIUM 8.6 mg/dL (8.4-10.2); CARBON DIOXIDE 30 mmol/L (22-30); CHLORIDE 107 mmol/L (98-107); GLUCOSE 113 mg/dL (75-110); PHOSPHORUS 3.7 mg/dL (2.5-4.5); POTASSIUM 4.5 mmol/L (3.6-5.0); TOTAL PROTEIN 5.7 g/dL (6.3-8.2)
--- NOTE | 2017-06-27 07:12 | RADIOLOGY REPORT (SQ) ---
EXAM DESCRIPTION: CHEST SINGLE VIEW CLINICAL HISTORY: resp failure COMPARISON: 06/25/2017 FINDINGS: Single frontal view of the chest. Interval removal of endotracheal tube and NG tube. Right IJ central venous catheter with tip at the atriocaval junction. Atherosclerotic calcification of the aortic arch. Heart is not enlarged. No consolidation, pneumothorax, or pleural effusion. No new osseous abnormalities. Upper abdominal soft tissues are unremarkable. IMPRESSION: 1. Interval removal of endotracheal and NG tube. Otherwise stable appearance of the chest. Electronically signed by: Vinicio Yarbrough 06/27/2017 6:10 AM
[2017-06-27] MEDS: LEVALBUTEROL HCL NEB 1.25 MG/3 ML AMPUL NEB PRN ×3 (08:58→19:42)
--- NOTE | 2017-06-27 08:59 | PROGRESS NOTE E ---
Progress Note NAME: GIACOMO CARRILLO : 1950 AGE: 66Y DATE: 06/27/2017 ROOM: 603 SUBJECTIVE: The patient is doing quite well. The patient is currently on the BiPAP. The patient was extubated yesterday and tolerated it well. The patient has been weaned from vasopressors as well. There have been no reported episodes of vomiting nor diarrhea. The patient does express discomfort with her Soriano. The patient has been afebrile. Blood pressure has been in a good range, actually have been slightly elevated. The patient has been oxygenating quite well on 40% FiO2 on the BiPAP. The patient's blood gas this morning was reflective of a PCO2 of 58, and the patient does not voice any other concerns at this time. REVIEW OF SYSTEMS: Rest of review of systems negative. MEDICATIONS: Medications have been reviewed. OBJECTIVE: GENERAL: The patient is a 66-year-old -Irish female who is awake, alert. She is oriented to person, place, time, and situation. She is verbal, conversational, does not appear to be distressed. VITAL SIGNS: Temperature is 97.3, pulse 62, respirations 13, blood pressure 166/86, oxygen saturation is 100% on 40% FiO2 on BiPAP. SKIN: Warm and dry. No rash. She is not diaphoretic. HEENT: Pupils equal, round, and reactive to light and accommodation. Conjunctiva is pink. No evidence of JVP. CARDIOVASCULAR SYSTEM: Heart is regular. There is no murmur or rub. CHEST: Diminished with faint expiratory wheezes, symmetrical, unlabored. ABDOMEN: Soft, nontender, nondistended. BACK: No CVA tenderness or sacral edema. EXTREMITIES: No clubbing, cyanosis, or edema. PSYCHIATRIC: Appropriate affect, pleasant mood. DIAGNOSTICS: Lab values are as follows: Hematology obtained on 06/27/2017: WBCs are 8.8, hemoglobin is 11.8, hematocrit is 36.0, platelet count is 214,000. Chemistry obtained on 06/27/2017: Sodium is 144, potassium 4.5, chloride is 107, carbon dioxide 30, BUN 21, creatinine is 0.86, glucose 113, calcium is 8.6, phosphorus 3.7, magnesium is 2.2. Bilirubin is 0.5, AST 44, ALT is 115, Alk phos 55, total protein 5.7, albumin 3.2. IMPRESSION AND PLAN: 1. CHRONIC OBSTRUCTIVE PULMONARY DISEASE EXACERBATION. Have transitioned the patient over to oral steroids and will continue home inhalers and follow. 2. ACUTE ON CHRONIC HYPOXEMIC AND HYPERCAPNIC RESPIRATORY FAILURE. Do appreciate Dr. Sousa's input with this. The patient is 1 day status post extubation and has tolerated this well. Will give the patient a trial of nasal cannula today. If she gets impressively symptomatic, will restart the BiPAP and follow. 3. HYPOTENSION. This has resolved. The patient is no longer requiring vasopressors. 4. HYPERTENSION. The patient's blood pressure has persisted in spite of restarting the patient's home medications. Will increase home BP meds and follow. 5. OBESITY WITH A BMI OF 37. Will encourage weight reduction. 6. ACUTE ENCEPHALOPATHY SECONDARY TO THE PATIENT'S RESPIRATORY FAILURE. The patient is now at baseline. DISPOSITION: The patient is a FULL CODE. Pending patient's symptomatology and diagnostic findings, will re-evaluate in the a.m. The patient can be downgraded to a telemetry bed. Hopefully, the patient can get out of bed at the bedside chair t.i.d. as well as participate in physical therapy. Time spent on this followup including assessment, plan, physical examination, patient education, review of records is 35 minutes. DICTATING PHYSICIAN: ANNY SUAREZ NP [id number] ZOILA#: [id number] ID: [id number] JOB#: [id number] ACCT: [id number] cc: >
[2017-06-27] MEDS: BUDESONIDE NEB 0.5 MG/2 ML AMPUL NEB SCH ×2 (09:00→19:42)
[2017-06-27] MEDS ORDERED: TAMSULOSIN HCL 0.4 MG CAP.SR.24H PO ONE (09:00)
[2017-06-27] MEDS: PREDNISONE 20 MG TABLET PO SCH ×2 (09:59→17:32)
[2017-06-27] MEDS: OSELTAMIVIR PHOSPHATE 75 MG CAPSULE PO SCH ×2 (09:59→21:57)
[2017-06-27] MEDS ORDERED: LISINOPRIL 10 MG TABLET PO SCH ×2 (10:00)
[2017-06-27] MEDS ORDERED: (PENDING PHARMACY ID) (Lisinopril [Prinivil] 20 MG) PO SCH (10:00)
[2017-06-27] MEDS ORDERED: FLUTICASONE NASAL SPRAY 50 MCG/SPRY 120 SPRAY/16 GM NASL SCH (10:00)
[2017-06-27] MEDS ORDERED: AMLODIPINE BESYLATE 5 MG TABLET PO SCH ×2 (10:00)
[2017-06-27] MEDS: FLUTICASONE NASAL SPRAY 50 MCG/SPRY 120 SPRAY/16 GM NASL SCH ×2 (10:01→21:57)
[2017-06-27] MEDS: AMLODIPINE BESYLATE 5 MG TABLET PO SCH ×2 (10:01→21:57)
[2017-06-27] MEDS: ENOXAPARIN SODIUM INJ 40 MG/0.4 ML DISP.SYRIN SUBCUT SCH (10:03)
[2017-06-27] MEDS ORDERED: IPRATROPIUM/ALBUTEROL 0.5-2.5 MG/3 ML AMPUL NEB ONE (11:34)
[2017-06-27] MEDS: MONTELUKAST SODIUM 10 MG TABLET PO SCH (21:56)
[2017-06-27] MEDS: ATORVASTATIN CALCIUM 10 MG TABLET PO SCH (21:57)
[2017-06-27] MEDS ORDERED: (PENDING PHARMACY ID) (Pravastatin Sodium [Pravachol] 40 MG) PO SCH (22:00)
--- NOTE | 2017-06-28 08:34 | PROGRESS NOTE E ---
Progress Note NAME: GIACOMO CARRILLO : 1950 AGE: 66Y DATE: 06/28/2017 ROOM: 533 SUBJECTIVE: The patient is lying in bed. She does have the BiPAP in place. The patient was able to transfer yesterday, but got winded with this. I have encouraged the patient to get out of bed to the bedside chair for meals. Therefore, we will use the BiPAP for transfer and then place her on a nasal cannula. It appears the patient is mainly symptomatic with activity alone. The patient denies any dizziness, chest pain, no fevers or chills. The patient has been afebrile. Her blood pressure has been in a good range. The patient does not have a high FIO2 demand. No other concerns are voiced at this time. REVIEW OF SYSTEMS: The rest of the review of systems is negative. MEDICATIONS: Medications have been reviewed. OBJECTIVE: GENERAL: The patient is a 66-year-old, -French female who is awake, alert and oriented to person, place, time, and situation. She is verbal, conversational, does not appear to be in acute distress. VITAL SIGNS: As follows: Temperature is 97.3, pulse 61, respirations 18, blood pressure 150/62, oxygen saturation 98% on 40% FIO2. SKIN: Warm and dry. No rash. She is not diaphoretic. HEENT: Pupils equal, round and reactive to light and accommodation. Conjunctivae pink. There is no evidence of JVP. CARDIOVASCULAR SYSTEM: Heart is regular. There is no murmur or rub. CHEST: The patient does have expiratory wheezes in the upper lung hancock, symmetrical, unlabored. ABDOMEN: Soft, nontender, nondistended. BACK: No CVA tenderness. No sacral edema. EXTREMITIES: No clubbing, cyanosis, or edema. PSYCHIATRIC: Appropriate affect. Pleasant mood. DIAGNOSTICS: Lab values are as follows: Hematology obtained on 06/27/2017: WBCs 8.8, hemoglobin 12.8, hematocrit 36.0, platelet count 214,000. Chemistry obtained on 06/27/2017: Sodium 144, potassium 3.5, chloride 107, carbon dioxide 30, BUN 21, creatinine 0.86, glucose 113. IMPRESSION AND PLAN: 1. CHRONIC OBSTRUCTIVE PULMONARY DISEASE EXACERBATION. Will continue steroids and home inhalers and follow. 2. ACUTE ON CHRONIC HYPOXEMIC AND HYPERCAPNIC RESPIRATORY FAILURE. Do appreciate Pulmonary input on this. The patient is status post day 2 of extubation, has tolerated this well. The patient did well with the nasal cannula while at rest. Will transition to nasal cannula, hopefully exclusively throughout the day, and repeat venous blood gas and follow. 3. HYPOTENSION. This did resolve. The patient is off vasopressors. 4. HYPERTENSION. Blood pressure is ever increasing. Will increase her dose of lisinopril. Follow. 5. OBESITY WITH A BODY MASS INDEX OF 37. Encouraged weight reduction. 6. ACUTE ENCEPHALOPATHY SECONDARY TO THE PATIENT'S RESPIRATORY FAILURE, NOW AT BASELINE. DISPOSITION: The patient is a FULL CODE. Pending patient's symptomatology and diagnostic findings, we will reevaluate in the a.m. TIME SPENT: On this followup including assessment, plan, physical examination, patient education and review of records, 25 minutes. DICTATING PHYSICIAN: ANNY SUAREZ NP [id number] PHY#: [id number] ID: [id number] JOB#: [id number] ACCT: [id number] cc: >
[2017-06-28] MEDS: BUDESONIDE NEB 0.5 MG/2 ML AMPUL NEB SCH ×2 (08:46→20:22)
[2017-06-28] MEDS: LEVALBUTEROL HCL NEB 1.25 MG/3 ML AMPUL NEB PRN ×2 (08:46→20:22)
[2017-06-28] MEDS: AMLODIPINE BESYLATE 5 MG TABLET PO SCH ×2 (09:53→22:34)
[2017-06-28] MEDS: PREDNISONE 20 MG TABLET PO SCH ×2 (09:54→17:28)
[2017-06-28] MEDS: LISINOPRIL 10 MG TABLET PO SCH (09:54)
[2017-06-28] MEDS: OSELTAMIVIR PHOSPHATE 75 MG CAPSULE PO SCH ×2 (09:55→22:34)
[2017-06-28] MEDS: ENOXAPARIN SODIUM INJ 40 MG/0.4 ML DISP.SYRIN SUBCUT SCH (09:56)
[2017-06-28] MEDS: FLUTICASONE NASAL SPRAY 50 MCG/SPRY 120 SPRAY/16 GM NASL SCH ×2 (09:56→22:33)
[2017-06-28] MEDS: MONTELUKAST SODIUM 10 MG TABLET PO SCH (22:34)
[2017-06-28] MEDS: ATORVASTATIN CALCIUM 10 MG TABLET PO SCH (22:34)
[2017-06-29] MEDS: GUAIFENESIN SYRP 200 MG/10 ML UDC PO PRN ×2 (01:17→11:57)
[2017-06-29 04:38] LABS: VENOUS BLOOD BASE EXCESS 10.2 mmol/L; VENOUS BLOOD HCO3 38.1 mmol/L (20-32); VENOUS BLOOD PH 7.37 (7.30-7.42)
[2017-06-29 04:49] LABS: VENOUS BLOOD PCO2 68.2 mmHg (35-63)
[2017-06-29] MEDS: LEVALBUTEROL HCL NEB 1.25 MG/3 ML AMPUL NEB PRN (07:43)
[2017-06-29] MEDS: BUDESONIDE NEB 0.5 MG/2 ML AMPUL NEB SCH ×2 (07:43→19:42)
[2017-06-29] MEDS ORDERED: PHENOL/SODIUM PHENOLATE 100 SPRAY/177 ML BOTTLE PO PRN (09:11)
[2017-06-29] MEDS: LISINOPRIL 10 MG TABLET PO SCH (09:55)
[2017-06-29] MEDS: PREDNISONE 20 MG TABLET PO SCH ×2 (09:56→17:01)
[2017-06-29] MEDS: AMLODIPINE BESYLATE 5 MG TABLET PO SCH ×2 (09:56→23:17)
[2017-06-29] MEDS: ENOXAPARIN SODIUM INJ 40 MG/0.4 ML DISP.SYRIN SUBCUT SCH (09:57)
[2017-06-29] MEDS: OSELTAMIVIR PHOSPHATE 75 MG CAPSULE PO SCH ×2 (09:58→23:18)
[2017-06-29] MEDS: FLUTICASONE NASAL SPRAY 50 MCG/SPRY 120 SPRAY/16 GM NASL SCH ×2 (09:58→23:19)
--- NOTE | 2017-06-29 10:49 | PROGRESS NOTE E ---
Progress Note NAME: GIACOMO CARRILLO : 1950 AGE: 66Y DATE: 06/29/2017 ROOM: 533 SUBJECTIVE: The patient is currently lying in bed. She does have the BiPAP in place. The patient wore the BiPAP throughout the night; however, yesterday the patient was able come off the BiPAP for meals. The patient was able to get in the bedside chair. The patient is also able to get up to the bedside commode on her own. The patient admits to feeling better every day and states that her symptoms have continued to improve. The patient is eating well. No reported episodes of nausea, vomiting, diarrhea. No dizziness or chest pain. The patient does admit to a scratchy throat and the patient does not voice any other concerns at this time. BRIEF HISTORY: The patient is a 66-year-old, female, who presented to the emergency department. The patient developed significant respiratory distress and the patient apparently was oxygenating 54% on room air. The patient was started on the BiPAP initially with improve in her O2 saturations into the 80s. However, she was found to be confused and became hypotensive. The patient was noted to have cold-like symptoms at times, but no known sick exposures. No evidence of pneumonia. The patient was found to be hypercapnic and hypoxic and subsequently was intubated and required vasopressors. The patient was treated with mechanical ventilation and steroids and nebulizers. The patient has no evidence of infiltrate. No evidence of infectious process. The patient made significant symptom improvement. The patient was extubated successfully on 06/26/2017. The patient remains chronically hypercapnic, which is probably her baseline, but her mental status is back to baseline and the patient is gradually making improvements. REVIEW OF SYSTEMS: The rest of the review of systems is negative. MEDICATIONS: Medications have been reviewed. OBJECTIVE: GENERAL: The patient is a very pleasant 66-year-old, female who is awake, alert and oriented to person, place, time, and situation. She is verbal, conversational, does not appear to be distressed. VITAL SIGNS: As follows: Temperature is 97.5, pulse 53, respirations 17, blood pressure 164/62, oxygen saturation 100% on nasal cannula. SKIN: Warm and dry. No rash. She is not diaphoretic. HEENT: Pupils equal, round and reactive to light and accommodation. Conjunctivae pink. There is no evidence of JVP. CARDIOVASCULAR: Heart is regular. There is no murmur or rub. CHEST: The patient does have expiratory wheezes noted in both lung hancock, but improved in comparison to yesterday. She is diminished. ABDOMEN: Soft, obese. EXTREMITIES: No clubbing, cyanosis, or edema. PSYCHIATRIC: Appropriate affect. Pleasant mood. DIAGNOSTICS: Lab values are as follows: Hematology obtained on 06/27/2017: WBC 8.8, hemoglobin 11.8, hematocrit 36.0, platelet count 214,000. Chemistry obtained on 06/27/2017: Sodium 144, potassium 4.5, chloride 107, carbon dioxide 30, BUN 21, creatinine 0.86, glucose 113, calcium 8.6, phosphorus 3.7, magnesium 2.2. IMPRESSION AND PLAN: 1. CHRONIC OBSTRUCTIVE PULMONARY DISEASE EXACERBATION. Will continue the patient's home inhalers, as well as steroids. 2. [id number] HYPOXEMIC AND HYPERCAPNIC RESPIRATORY FAILURE. Do appreciate Pulmonology's input on this. The patient's baseline PCO2 appears to be in the 60 range. We will continue BiPAP at night and encourage nasal cannula use during the day and we will titrate oxygen accordingly. The patient has been encouraged to become more active and is being seen by Physical Therapy. 3. HYPOTENSION. This did resolve. The patient is off vasopressors. 4. HYPERTENSION. Blood pressure is now back to baseline, has resumed her home blood pressure medications. 5. OBESITY WITH A BODY MASS INDEX OF 37. Encouraged weight reduction. 6. ACUTE ENCEPHALOPATHY SECONDARY TO THE PATIENT'S RESPIRATORY FAILURE. The patient is now at baseline. DISPOSITION: The patient is a FULL CODE. Pending patient's symptomatology and diagnostic findings, we will reevaluate in the a.m. TIME SPENT: On this followup including assessment, plan, physical examination, patient education and review of records is 25 minutes. DICTATING PHYSICIAN: ANNY SUAREZ NP [id number] PHY#: [id number] ID: [id number] JOB#: [id number] ACCT: [id number] cc: >
[2017-06-29] MEDS: ACETAMINOPHEN 325 MG TABLET PO PRN (11:57)
[2017-06-29] MEDS: MONTELUKAST SODIUM 10 MG TABLET PO SCH (23:17)
[2017-06-29] MEDS: ATORVASTATIN CALCIUM 10 MG TABLET PO SCH (23:17)
[2017-06-29] MEDS: NORMAL SALINE INJ/PF 0.9% 10 ML SDV IV SCH (23:18)
[2017-06-30] MEDS: NORMAL SALINE INJ/PF 0.9% 10 ML SDV IV SCH ×3 (05:55→22:49)
[2017-06-30] MEDS: LEVALBUTEROL HCL NEB 1.25 MG/3 ML AMPUL NEB PRN (07:46)
[2017-06-30] MEDS: BUDESONIDE NEB 0.5 MG/2 ML AMPUL NEB SCH (07:46)
[2017-06-30 07:47] LABS: HEMATOCRIT 34.1 % (36.0-47.0); HEMOGLOBIN 11.2 g/dL (12.0-15.5); MEAN CORPUSCULAR HEMOGLOBIN 27.5 pg (27.0-33.4); MEAN CORPUSCULAR HGB CONC 32.9 g/dL (32.0-36.0); MEAN CORPUSCULAR VOLUME 84 fl (80-97); PLATELET COUNT 233 10^3/uL (150-450); RED BLOOD COUNT 4.08 10^6/uL (3.72-5.28); RED CELL DISTRIBUTION WIDTH 14.5 % (11.5-14.0); WHITE BLOOD COUNT 7.9 10^3/uL (4.0-10.5)
[2017-06-30 08:03] LABS: BLOOD UREA NITROGEN 27 mg/dL (7-20); CALCIUM 8.6 mg/dL (8.4-10.2); CHLORIDE 96 mmol/L (98-107); GLUCOSE 88 mg/dL (75-110); POTASSIUM 4.1 mmol/L (3.6-5.0); SODIUM 141.2 mmol/L (137-145)
[2017-06-30 08:11] LABS: ANION GAP 4 (5-19)
[2017-06-30 08:13] LABS: CARBON DIOXIDE 41 mmol/L (22-30)
[2017-06-30] MEDS: LISINOPRIL 10 MG TABLET PO SCH (09:39)
[2017-06-30] MEDS: ENOXAPARIN SODIUM INJ 40 MG/0.4 ML DISP.SYRIN SUBCUT SCH (09:39)
[2017-06-30] MEDS: AMLODIPINE BESYLATE 5 MG TABLET PO SCH ×2 (09:40→22:49)
[2017-06-30] MEDS: PREDNISONE 20 MG TABLET PO SCH ×2 (09:40→17:24)
[2017-06-30] MEDS: FLUTICASONE NASAL SPRAY 50 MCG/SPRY 120 SPRAY/16 GM NASL SCH ×2 (09:41→22:51)
[2017-06-30] MEDS: OSELTAMIVIR PHOSPHATE 75 MG CAPSULE PO SCH (09:41)
[2017-06-30] MEDS: TIZANIDINE HCL 4 MG TABLET PO PRN ×2 (09:43→22:48)
[2017-06-30 12:44] LABS: BLOOD UREA NITROGEN 25 mg/dL (7-20); CALCIUM 8.9 mg/dL (8.4-10.2); CHLORIDE 95 mmol/L (98-107); GLUCOSE 109 mg/dL (75-110)
[2017-06-30 12:57] LABS: SODIUM 138.8 mmol/L (137-145)
[2017-06-30 13:09] LABS: ANION GAP 4 (5-19)
[2017-06-30 13:12] LABS: CARBON DIOXIDE 40 mmol/L (22-30)
--- NOTE | 2017-06-30 16:21 | PDOC PROGRESS REPORT ---
Subjective Progress Note for:: 06/30/17 Subjective:: She continues to be significantly short of breath and is having difficulty. She is on BiPAP this morning. Reason For Visit: ACUTE RESPIRATORY FAILURE WITH HYPERCARBIA Physical Exam Vital Signs: Temp Pulse Resp BP Pulse Ox 98.4 F 71 18 112/62 99 06/30/17 11:36 06/30/17 14:00 06/30/17 11:36 06/30/17 11:36 06/30/17 11:36 Intake & Output 06/29/17 06/30/17 07/01/17 06:59 06:59 06:59 Intake Total 830 1413 Output Total 400 1100 Balance 430 313 Weight 96.2 kg General appearance: PRESENT: no acute distress, well-developed, well-nourished Head exam: PRESENT: atraumatic, normocephalic Mouth exam: PRESENT: moist, tongue midline Respiratory exam: PRESENT: decreased breath sounds Cardiovascular exam: PRESENT: RRR. ABSENT: diastolic murmur, rubs, systolic murmur GI/Abdominal exam: PRESENT: normal bowel sounds, soft. ABSENT: distended, guarding, mass, organolmegaly, rebound, tenderness Rectal exam: PRESENT: deferred Extremities exam: PRESENT: full ROM. ABSENT: calf tenderness, clubbing, pedal edema Neurological exam: PRESENT: alert, awake, oriented to person, oriented to place , oriented to time, oriented to situation, CN II-XII grossly intact. ABSENT: motor sensory deficit Psychiatric exam: PRESENT: appropriate affect, normal mood. ABSENT: homicidal ideation, suicidal ideation Skin exam: PRESENT: dry, intact, warm. ABSENT: cyanosis, rash Results Laboratory Results: 06/30/17 06:00 06/30/17 12:10 06/30/17 06/30/17 06/30/17 06:00 06:00 12:10 WBC 7.9 RBC 4.08 Hgb 11.2 L Hct 34.1 L MCV 84 MCH 27.5 MCHC 32.9 RDW 14.5 H Plt Count 233 Sodium 141.2 138.8 Potassium 4.1 4.0 Chloride 96 L 95 L Carbon Dioxide 41 H* 40 H* Anion Gap 4 L 4 L BUN 27 H 25 H Creatinine 0.95 0.86 Est GFR ( Amer) > 60 > 60 Est GFR (Non-Af Amer) 58 L > 60 Glucose 88 109 Calcium 8.6 8.9 Magnesium 2.2 06/24/17 14:14 Blood Blood Culture - Final NO GROWTH IN 5 DAYS 06/24/17 12:48 Blood Blood Culture - Final NO GROWTH IN 5 DAYS 06/30/17 06:00 NT-Pro-B Natriuret Pep 544 Impressions: KUB X-Ray 06/24/17 10:17 IMPRESSION: Distal OG tube appears to be in good position. Chest X-Ray 06/27/17 06:00 IMPRESSION: 1. Interval removal of endotracheal and NG tube. Otherwise stable appearance of the chest. Assessment & Plan - Diagnosis (1) Hypovolemic shock Is this a current diagnosis for this admission?: Yes Plan: The patient was significantly hypotensive requiring aggressive volume resuscitation and pressors in the ICU. Resolved. (2) Acute on chronic respiratory failure with hypoxia and hypercapnia Is this a current diagnosis for this admission?: Yes Plan: At this point the patient remains on BiPAP. In reviewing her records she has not had any imaging studies other than chest x-rays done on her chest. I would like to get a CT scan of her chest if we could. However she has not been able to stay off the BiPAP long enough to do this. I am going to repeat a chest x- ray this afternoon. We will obtain a BNP as well. (3) Encephalopathy Is this a current diagnosis for this admission?: Yes Plan: Due to hypercapnia. Resolved. She appears to be at her cognitive baseline during my visit today (4) Obesity (BMI 30-39.9) Is this a current diagnosis for this admission?: Yes Plan: Certainly this contributes to her respiratory issues. Dietary discretion is advised (5) Hypertension Is this a current diagnosis for this admission?: Yes Plan: Stable.She has been started back on amlodipine. (6) Anemia Is this a current diagnosis for this admission?: Yes Plan: She had a precipitous drop in hemoglobin likely due to hemodilution. (7) Elevated LFTs Is this a current diagnosis for this admission?: Yes Plan: Of undetermined significance at this point
--- NOTE | 2017-06-30 17:00 | RADIOLOGY REPORT (SQ) ---
EXAM DESCRIPTION: CHEST SINGLE VIEW COMPLETED DATE/TIME: 06/30/2017 4:48 pm REASON FOR STUDY: hypoxia COMPARISON: 06/27/2017 NUMBER OF VIEWS: One view. TECHNIQUE: Single frontal radiographic image of the chest acquired. LIMITATIONS: None. FINDINGS: LUNGS AND PLEURA: No evidence of pulmonary edema or pneumonia. No pneumothorax. MEDIASTINUM AND HEART: Stable heart size and mediastinal structures. SUPPORT DEVICES: Appropriate location without change. BONY STRUCTURES: No acute findings. HARDWARE: None. OTHER: No other significant finding. IMPRESSION: No acute findings in the chest.
[2017-06-30] MEDS: NYSTATIN/DEXAMETH/DIPHEN SUSP 120 ML PO SCH ×2 (18:30→22:49)
[2017-06-30] MEDS: ATORVASTATIN CALCIUM 10 MG TABLET PO SCH (22:49)
[2017-06-30] MEDS: MONTELUKAST SODIUM 10 MG TABLET PO SCH (22:49)
[2017-07-01] MEDS: NORMAL SALINE INJ/PF 0.9% 10 ML SDV IV SCH ×3 (05:23→22:44)
[2017-07-01 06:00] LABS: ABSOLUTE MONOCYTES (AUTO) 0.6 10^3/uL (0.1-1.4); ABSOLUTE NEUT (AUTO) 7.7 10^3/uL (1.7-8.2); BASOPHILS % (AUTO) 0.1 % (0-2); EOSINOPHILS % (AUTO) 0.1 % (0-6); HEMOGLOBIN 11.5 g/dL (12.0-15.5); LYMPHOCYTES % (AUTO) 10.7 % (13-45); MEAN CORPUSCULAR HGB CONC 33.9 g/dL (32.0-36.0); MEAN CORPUSCULAR VOLUME 83 fl (80-97); MONOCYTES % (AUTO) 6.9 % (3-13); PLATELET COUNT 239 10^3/uL (150-450); RED BLOOD COUNT 4.12 10^6/uL (3.72-5.28); RED CELL DISTRIBUTION WIDTH 14.1 % (11.5-14.0); SEGMENTED NEUTROPHILS % (AUTO) 82.2 % (42-78); TOTAL CELLS COUNTED % (AUTO) 100 %; WHITE BLOOD COUNT 9.4 10^3/uL (4.0-10.5)
[2017-07-01 06:25] LABS: BLOOD UREA NITROGEN 22 mg/dL (7-20); CALCIUM 8.9 mg/dL (8.4-10.2); CHLORIDE 95 mmol/L (98-107); GLUCOSE 93 mg/dL (75-110); POTASSIUM 4.4 mmol/L (3.6-5.0); SODIUM 140.9 mmol/L (137-145)
[2017-07-01 06:40] LABS: ANION GAP 4 (5-19); CARBON DIOXIDE 42 mmol/L (22-30)
[2017-07-01] MEDS: LEVALBUTEROL HCL NEB 1.25 MG/3 ML AMPUL NEB PRN (07:32)
[2017-07-01] MEDS: NYSTATIN/DEXAMETH/DIPHEN SUSP 120 ML PO SCH ×4 (10:29→22:43)
[2017-07-01] MEDS: TIZANIDINE HCL 4 MG TABLET PO PRN ×2 (10:29→22:44)
[2017-07-01] MEDS: LISINOPRIL 10 MG TABLET PO SCH (10:29)
[2017-07-01] MEDS: AMLODIPINE BESYLATE 5 MG TABLET PO SCH ×2 (10:30→22:44)
[2017-07-01] MEDS: PREDNISONE 20 MG TABLET PO SCH ×2 (10:30→17:19)
[2017-07-01] MEDS: FLUTICASONE NASAL SPRAY 50 MCG/SPRY 120 SPRAY/16 GM NASL SCH ×2 (10:31→22:31)
[2017-07-01] MEDS: ENOXAPARIN SODIUM INJ 40 MG/0.4 ML DISP.SYRIN SUBCUT SCH (10:31)
[2017-07-01 11:25] LABS: ARTERIAL BLOOD BASE EXCESS 13.4 mmol/L; ARTERIAL BLOOD FIO2 3L; ARTERIAL BLOOD H2CO3 2.08 mmol/L (1.05-1.35); ARTERIAL BLOOD HCO3 41.4 mmol/L (20-26); ARTERIAL BLOOD O2 SATURATION 91.1 % (94-98); ARTERIAL BLOOD TOTAL CO2 43.5 mmol/L (21-25)
--- NOTE | 2017-07-01 13:47 | PDOC PROGRESS REPORT ---
Subjective Progress Note for:: 07/01/17 Subjective:: The patient is a 66-year-old -[place] female who presented to the emergency room with significant respiratory distress. At the time of presentation she was repaired apparently oxygenating at 54% on room air. The patient was initially started on BiPAP and her oxygen saturations improved into the 80s. She was found to be confused and then became hypotensive. There was no evidence of pneumonia although the patient was noted to have cold-like symptoms at the time. The patient eventually became hypercapnic and hypoxic to the point that she was intubated and required vasopressors. She was treated with mechanical ventilation as well as steroids and nebulizers. There has never been evidence of an infectious process. She was successfully extubated on June 26, 2017 however she remains chronically hypercapnic but her mental status is back to its baseline. She has been transitioned out of the ICU at this point but is still spending most of her time on BiPAP. She will take the BiPAP off to eat but then becomes significantly short of breath and has to have it placed back. Chest x-rays continued to reveal no infiltrates. A CT scan of the chest has been ordered and she thinks that she can do this this afternoon. She would like to stay on the BiPAP for an hour or so and then put on the oxygen and go downstairs and have the test performed. She is otherwise hemodynamically stable. She is tolerating her diet and doing fairly well. She does state that she recently had a CT scan performed as an outpatient. She reportedly had pulmonary nodules on that scan. Pulmonology has been consulted and I believe they have seen the patient but there is no note as of yet. Today she denies fever or chills. She has had no chest pain or heart palpitations. She does complain of a significant sore throat and states that her mouth hurts as well. She remains short of breath when she is not on her BiPAP. She does not have a cough. She does not look particularly toxic. She is tolerating her diet and has no nausea vomiting or diarrhea. No urinary complaints. Reason For Visit: ACUTE RESPIRATORY FAILURE WITH HYPERCARBIA Physical Exam Vital Signs: Temp Pulse Resp BP Pulse Ox 98.2 F 64 18 163/63 H 98 07/01/17 11:26 07/01/17 11:26 07/01/17 11:26 07/01/17 11:26 07/01/17 11:26 Intake & Output 06/30/17 07/01/17 07/02/17 06:59 06:59 06:59 Intake Total 1413 522 Output Total 1100 2300 Balance 313 -1778 Weight 96.2 kg 97.5 kg General appearance: PRESENT: obese, other - She has conversational dyspnea Head exam: PRESENT: atraumatic, normocephalic Mouth exam: PRESENT: moist, tongue midline Throat exam: PRESENT: other - She is quite hoarse and complains of a sore throat. Respiratory exam: PRESENT: decreased breath sounds. ABSENT: rales, rhonchi, wheezes Cardiovascular exam: PRESENT: RRR. ABSENT: diastolic murmur, rubs, systolic murmur GI/Abdominal exam: PRESENT: normal bowel sounds, soft. ABSENT: distended, guarding, mass, organolmegaly, rebound, tenderness Rectal exam: PRESENT: deferred Extremities exam: PRESENT: full ROM. ABSENT: calf tenderness, clubbing, pedal edema Neurological exam: PRESENT: alert, awake, oriented to person, oriented to place , oriented to time, oriented to situation, CN II-XII grossly intact. ABSENT: motor sensory deficit Psychiatric exam: PRESENT: appropriate affect, normal mood. ABSENT: homicidal ideation, suicidal ideation Skin exam: PRESENT: dry, intact, warm. ABSENT: cyanosis, rash Results Laboratory Results: 07/01/17 05:22 07/01/17 05:22 07/01/17 07/01/17 07/01/17 05:22 05:22 10:07 WBC 9.4 RBC 4.12 Hgb 11.5 L Hct 34.0 L MCV 83 MCH 28.0 MCHC 33.9 RDW 14.1 H Plt Count 239 Seg Neutrophils % 82.2 H Lymphocytes % 10.7 L Monocytes % 6.9 Eosinophils % 0.1 Basophils % 0.1 Absolute Neutrophils 7.7 Absolute Lymphocytes 1.0 Absolute Monocytes 0.6 Absolute Eosinophils 0.0 Absolute Basophils 0.0 Carbonic Acid 2.08 H HCO3/H2CO3 Ratio 19:1 ABG pH 7.40 ABG pCO2 69.0 H ABG pO2 63.0 L ABG HCO3 41.4 H ABG O2 Saturation 91.1 L ABG Base Excess 13.4 FiO2 3L Sodium 140.9 Potassium 4.4 Chloride 95 L Carbon Dioxide 42 H* Anion Gap 4 L BUN 22 H Creatinine 0.86 Est GFR ( Amer) > 60 Est GFR (Non-Af Amer) > 60 Glucose 93 Calcium 8.9 Magnesium 2.1 06/30/17 06:00 NT-Pro-B Natriuret Pep 544 Impressions: KUB X-Ray 06/24/17 10:17 IMPRESSION: Distal OG tube appears to be in good position. Chest X-Ray 06/30/17 00:00 IMPRESSION: No acute findings in the chest. Assessment & Plan - Diagnosis (1) Hypovolemic shock Is this a current diagnosis for this admission?: Yes Plan: The patient was significantly hypotensive requiring aggressive volume resuscitation and pressors in the ICU. Resolved. (2) Acute on chronic respiratory failure with hypoxia and hypercapnia Is this a current diagnosis for this admission?: Yes Plan: At this point the patient remains on BiPAP most of the time. In reviewing her records she has not had any imaging studies other than chest x-rays done on her chest during this hospitalization. I would like to get a CT scan of her chest if we could. She believes she can have the scan done this afternoon. It has been ordered and after she has spent an hour or 2 on the BiPAP this afternoon hopefully we can get it done. (3) Encephalopathy Is this a current diagnosis for this admission?: Yes Plan: Due to hypercapnia. Resolved. She appears to be at her cognitive baseline during my visit today (4) Obesity (BMI 30-39.9) Is this a current diagnosis for this admission?: Yes Plan: Certainly this contributes to her respiratory issues. Dietary discretion is advised (5) Hypertension Is this a current diagnosis for this admission?: Yes Plan: Stable. She has been started back on amlodipine. (6) Anemia Is this a current diagnosis for this admission?: Yes Plan: She had a precipitous drop in hemoglobin likely due to hemodilution. (7) Elevated LFTs Is this a current diagnosis for this admission?: Yes Plan: Of undetermined significance at this point - Time Time Spent with patient: 25-34 minutes - Inpatient Certification Medical Necessity: Other - The patient continues to have hypoxic respiratory failure requiring BiPAP support. Further workup is necessary.
--- NOTE | 2017-07-01 16:37 | RADIOLOGY REPORT (SQ) ---
EXAM DESCRIPTION: CTA CHEST COMPLETED DATE/TIME: 07/01/2017 4:13 pm REASON FOR STUDY: Hypoxa, resp failure, r/o PNA or mass COMPARISON: Chest films 06/30/2017, 06/27/2017, 06/26/2017, 06/25/2017, 06/21/2017 TECHNIQUE: CT scan of the chest performed using helical scanning technique with dynamic intravenous contrast injection. Images reviewed with lung, soft tissue and bone windows. Reconstructed coronal and sagittal MPR images reviewed. Additional 3 dimensional post-processing performed to develop Maximal Intensity Projection images ([place] P). All images stored on PACS. All CT scanners at this facility use dose modulation, iterative reconstruction, and/or weight based d osing when appropriate to reduce radiation dose to as low as reasonably achievable (ALARA). [facility]: Dose Right [facility]: CareDose [facility]: Dose Right [facility]: Teradose 4D [facility]: Provade CONTRAST TYPE AND DOSE: contrast/concentration: Isovue 370.00 mg/ml; Total Contrast Delivered: 73.0 ml; Total Saline Delivered: 110.0 ml Contrast bolus adequate for pulmonary arteries and aorta. RENAL FUNCTION: Creatinine 0.86 RADIATION DOSE: CT Rad equipment meets quality standard of care and radiation dose reduction techniq ues were employed. CTDIvol: 7.5 - 15.5 mGy. DLP: 590 mGy-cm. . LIMITATIONS: None. FINDINGS: LUNGS AND PLEURA: There is minimal airspace disease in the anterior aspect of the right mi ddle lobe, best shown on axial images 40-49. This could represent a small focus of pneumonia. This would be difficult to visualize on chest films, as it is superimposed on the cardiac shadow. Lungs are otherwise well inflated and clear. No pleural effusion. No pneumothorax. AORTA AND GREAT VESSELS: Ascending aorta measures 3.8 cm in greatest diameter. No CT angio evidence of thoracic aortic dissection or proximal great vessel stenosis HEART: No pericardial effusion. Moderate to marked coronary artery calcifications. Very heavily calc ified aortic valve. There is thickening of the left ventricular myocardium. Findings are worrisome for aortic stenosis. PULMONARY ARTERIES: No emboli visualized in the main pulmonary arteries or the segmental branches. HILAR AND MEDIASTINAL STRUCTURES: Mild mediastinal adenopathy as follows: Prevascular 1.7 x 1.1 cm node image 44 Pretracheal 1.1 x 0.8 cm node image 51 Precarinal 1.8 x 1.4 cm node image 57 HARDWARE: Right jugular central line tip superior vena cava UPPER ABDOMEN: Fatty liver THYROID AND OTHER SOFT TISSUES: Deep right lower pole thyroid 2.2 x 1.7 cm nodule BONES: No acute or significant finding. 3D MIPS: Confirm above findings. OTHER: No other significant finding. IMPRESSION: Medial segment right middle lobe lung consolidation worrisome for a small focus of pneum onia. Probable reactive mediastinal adenopathy Heavily calcified aortic valve with thickened left ventricular myocardium and mild dilatation of the ascending thoracic aorta. Findings worrisome for aortic stenosis COMMENT: Quality ID # [id number]: Final reports with documentation of one or more dose reduction techniques (e.g., Automated exposure control, adjustment of the mA and/or kV according to patient size, use of iterative reconstruction technique) TECHNICAL DOCUMENTATION: JOB ID: [id number] [employer]- All Rights Reserved
[2017-07-01] MEDS: ATORVASTATIN CALCIUM 10 MG TABLET PO SCH (22:44)
[2017-07-01] MEDS: MONTELUKAST SODIUM 10 MG TABLET PO SCH (22:44)
[2017-07-02] MEDS: NORMAL SALINE INJ/PF 0.9% 10 ML SDV IV SCH ×3 (05:02→22:52)
[2017-07-02 06:14] LABS: ABSOLUTE LYMPHOCYTES (AUTO) 1.1 10^3/uL (0.5-4.7); ABSOLUTE MONOCYTES (AUTO) 0.6 10^3/uL (0.1-1.4); HEMATOCRIT 36.3 % (36.0-47.0); HEMOGLOBIN 11.9 g/dL (12.0-15.5); LYMPHOCYTES % (AUTO) 10.6 % (13-45); MEAN CORPUSCULAR HEMOGLOBIN 27.4 pg (27.0-33.4); MEAN CORPUSCULAR HGB CONC 32.6 g/dL (32.0-36.0); MEAN CORPUSCULAR VOLUME 84 fl (80-97); MONOCYTES % (AUTO) 5.2 % (3-13); PLATELET COUNT 250 10^3/uL (150-450); RED BLOOD COUNT 4.34 10^6/uL (3.72-5.28); RED CELL DISTRIBUTION WIDTH 14.7 % (11.5-14.0); SEGMENTED NEUTROPHILS % (AUTO) 84.2 % (42-78); TOTAL CELLS COUNTED % (AUTO) 100 %; WHITE BLOOD COUNT 10.7 10^3/uL (4.0-10.5)
[2017-07-02 06:22] LABS: BLOOD UREA NITROGEN 27 mg/dL (7-20); CALCIUM 9.1 mg/dL (8.4-10.2); CHLORIDE 96 mmol/L (98-107); GLUCOSE 168 mg/dL (75-110); POTASSIUM 4.4 mmol/L (3.6-5.0); SODIUM 140.9 mmol/L (137-145)
[2017-07-02 06:25] LABS: ANION GAP 5 (5-19)
[2017-07-02 06:33] LABS: CARBON DIOXIDE 40 mmol/L (22-30)
[2017-07-02] MEDS: NYSTATIN/DEXAMETH/DIPHEN SUSP 120 ML PO SCH ×4 (10:05→22:53)
[2017-07-02] MEDS: ENOXAPARIN SODIUM INJ 40 MG/0.4 ML DISP.SYRIN SUBCUT SCH (10:05)
[2017-07-02] MEDS: PREDNISONE 20 MG TABLET PO SCH ×2 (10:06→17:51)
[2017-07-02] MEDS: LISINOPRIL 10 MG TABLET PO SCH (10:06)
[2017-07-02] MEDS: AMLODIPINE BESYLATE 5 MG TABLET PO SCH ×2 (10:06→22:53)
[2017-07-02] MEDS: FLUTICASONE NASAL SPRAY 50 MCG/SPRY 120 SPRAY/16 GM NASL SCH ×2 (10:07→22:53)
--- NOTE | 2017-07-02 11:43 | PDOC PROGRESS REPORT ---
Subjective Progress Note for:: 07/02/17 Subjective:: The patient is a 66-year-old -[place] female who presented to the emergency room with significant respiratory distress. At the time of presentation she was repaired apparently oxygenating at 54% on room air. The patient was initially started on BiPAP and her oxygen saturations improved into the 80s. She was found to be confused and then became hypotensive. There was no evidence of pneumonia although the patient was noted to have cold-like symptoms at the time. The patient eventually became hypercapnic and hypoxic to the point that she was intubated and required vasopressors. She was treated with mechanical ventilation as well as steroids and nebulizers. There has never been evidence of an infectious process. She was successfully extubated on June 26, 2017 however she remains chronically hypercapnic but her mental status is back to its baseline. She has been transitioned out of the ICU. Chest x-rays continued to reveal no infiltrates. She does state that she recently had a CT scan performed as an outpatient. She reportedly had pulmonary nodules on that scan. Pulmonology has been consulted Today she denies fever or chills. She has had no chest pain or heart palpitations. She does complain of a significant sore throat and states that her mouth hurts as well. She remains short of breath when she is not on her BiPAP. She does not have a cough. She does not look particularly toxic. She is tolerating her diet and has no nausea vomiting or diarrhea. No urinary complaints She feels she is making some progress on although still pretty short of breath she thinks she is able to do more today. Reason For Visit: ACUTE RESPIRATORY FAILURE WITH HYPERCARBIA Physical Exam Vital Signs: Temp Pulse Resp BP Pulse Ox 97.8 F 55 L 17 154/57 H 100 07/02/17 07:44 07/02/17 07:44 07/02/17 08:10 07/02/17 07:44 07/02/17 07:44 Intake & Output 07/01/17 07/02/17 07/03/17 06:59 06:59 06:59 Intake Total 522 890 Output Total 2300 975 Balance -1778 -85 Weight 97.5 kg General appearance: PRESENT: cooperative, other - Mildly dyspneic Head exam: PRESENT: atraumatic Ear exam: PRESENT: normal external ear exam Mouth exam: PRESENT: dry mucosa Neck exam: PRESENT: full ROM Respiratory exam: PRESENT: decreased breath sounds, rhonchi, other - Slightly pursed lips Pulses: PRESENT: normal carotid pulses Vascular exam: PRESENT: normal capillary refill GI/Abdominal exam: PRESENT: normal bowel sounds, soft. ABSENT: distended, guarding, mass, organolmegaly, rebound, tenderness Rectal exam: PRESENT: deferred Extremities exam: PRESENT: full ROM. ABSENT: calf tenderness, clubbing, pedal edema Musculoskeletal exam: PRESENT: ambulatory Neurological exam: PRESENT: alert, awake, oriented to person, oriented to place , oriented to time, oriented to situation, CN II-XII grossly intact. ABSENT: motor sensory deficit Psychiatric exam: PRESENT: appropriate affect Results Laboratory Results: 07/02/17 05:46 07/02/17 05:46 07/01/17 07/02/17 07/02/17 10:07 05:46 05:46 WBC 10.7 H RBC 4.34 Hgb 11.9 L Hct 36.3 MCV 84 MCH 27.4 MCHC 32.6 RDW 14.7 H Plt Count 250 Seg Neutrophils % 84.2 H Lymphocytes % 10.6 L Monocytes % 5.2 Eosinophils % 0.0 Basophils % 0.0 Absolute Neutrophils 9.0 H Absolute Lymphocytes 1.1 Absolute Monocytes 0.6 Absolute Eosinophils 0.0 Absolute Basophils 0.0 Carbonic Acid 2.08 H HCO3/H2CO3 Ratio 19:1 ABG pH 7.40 ABG pCO2 69.0 H ABG pO2 63.0 L ABG HCO3 41.4 H ABG O2 Saturation 91.1 L ABG Base Excess 13.4 FiO2 3L Sodium 140.9 Potassium 4.4 Chloride 96 L Carbon Dioxide 40 H* Anion Gap 5 BUN 27 H Creatinine 0.97 Est GFR ( Amer) > 60 Est GFR (Non-Af Amer) 57 L Glucose 168 H Calcium 9.1 Magnesium 2.0 06/30/17 06:00 NT-Pro-B Natriuret Pep 544 Impressions: KUB X-Ray 06/24/17 10:17 IMPRESSION: Distal OG tube appears to be in good position. Chest X-Ray 06/30/17 00:00 IMPRESSION: No acute findings in the chest. Chest/Abdomen CTA 07/01/17 00:00 IMPRESSION: Medial segment right middle lobe lung consolidation worrisome for a small focus of pneumonia. Probable reactive mediastinal adenopathy Heavily calcified aortic valve with thickened left ventricular myocardium and mild dilatation of the ascending thoracic aorta. Findings worrisome for aortic stenosis Assessment & Plan - Diagnosis (1) Acute on chronic respiratory failure with hypoxia and hypercapnia Is this a current diagnosis for this admission?: Yes Plan: Patient is still pretty dyspneic but from all accounts she appears to be getting better. She will continue with physical therapy with pulmonary rehabilitation. Will follow up with religious education director. I will continue to taper her steroids as per her response. She is clearly deconditioned. (2) COPD exacerbation Is this a current diagnosis for this admission?: Yes Plan: Continue with bronchodilators and adjust steroids as per response (3) Hypertension Qualifiers: Hypertension type: essential hypertension Qualified Code(s): I10 - Essential (primary) hypertension Is this a current diagnosis for this admission?: Yes Plan: We will continue with amlodipine as well as lisinopril and make further adjustments as needed. (4) Anemia Is this a current diagnosis for this admission?: Yes (5) Elevated LFTs Plan: Likely secondary to acute illness. Will continue to monitor her LFTs (6) Encephalopathy Is this a current diagnosis for this admission?: Yes Plan: Secondary to acute illness. This has resolved (7) Hypovolemic shock Is this a current diagnosis for this admission?: Yes Plan: On initial presentation and admission to the ICU, since resolved. - Time Time Spent with patient: 25-34 minutes Medications reviewed and adjusted accordingly: Yes Anticipated discharge: Home with Homehealth - Inpatient Certification Medical Necessity: Need Close Monitoring Due to Risk of Patient Decompensation, Need for Nebulizer Therapy and Monitoring of Response - Patient's breathing is still suboptimal and she is at risk for serious decompensation if discharged in current state.
[2017-07-02] MEDS: ACETAMINOPHEN 325 MG TABLET PO PRN (14:28)
[2017-07-02] MEDS: TIZANIDINE HCL 4 MG TABLET PO PRN (22:52)
[2017-07-02] MEDS: ATORVASTATIN CALCIUM 10 MG TABLET PO SCH (22:53)
[2017-07-02] MEDS: MONTELUKAST SODIUM 10 MG TABLET PO SCH (22:53)
[2017-07-03] MEDS: NORMAL SALINE INJ/PF 0.9% 10 ML SDV IV SCH ×3 (05:02→22:38)
[2017-07-03] MEDS: ENOXAPARIN SODIUM INJ 40 MG/0.4 ML DISP.SYRIN SUBCUT SCH (09:09)
[2017-07-03] MEDS: LISINOPRIL 10 MG TABLET PO SCH (09:10)
[2017-07-03] MEDS: PREDNISONE 20 MG TABLET PO SCH ×2 (09:13→16:35)
[2017-07-03] MEDS: AMLODIPINE BESYLATE 5 MG TABLET PO SCH ×2 (09:13→22:38)
[2017-07-03] MEDS: NYSTATIN/DEXAMETH/DIPHEN SUSP 120 ML PO SCH ×4 (09:13→22:38)
[2017-07-03] MEDS: FLUTICASONE NASAL SPRAY 50 MCG/SPRY 120 SPRAY/16 GM NASL SCH ×2 (09:14→22:39)
--- NOTE | 2017-07-03 11:22 | PDOC PROGRESS REPORT ---
Subjective Progress Note for:: 07/03/17 Subjective:: The patient is a 66-year-old -[place] female who presented to the emergency room with significant respiratory distress. At the time of presentation she was repaired apparently oxygenating at 54% on room air. The patient was initially started on BiPAP and her oxygen saturations improved into the 80s. She was found to be confused and then became hypotensive. There was no evidence of pneumonia although the patient was noted to have cold-like symptoms at the time. The patient eventually became hypercapnic and hypoxic to the point that she was intubated and required vasopressors. She was treated with mechanical ventilation as well as steroids and nebulizers. There has never been evidence of an infectious process. She was successfully extubated on June 26, 2017 however she remains chronically hypercapnic but her mental status is back to its baseline. She has been transitioned out of the ICU. Chest x-rays continued to reveal no infiltrates. She does state that she recently had a CT scan performed as an outpatient. She reportedly had pulmonary nodules on that scan. Pulmonology has been consulted Today she denies fever or chills. She has had no chest pain or heart palpitations. She feels she is making some progress on although still pretty short of breath Reason For Visit: ACUTE RESPIRATORY FAILURE WITH HYPERCARBIA Physical Exam Vital Signs: Temp Pulse Resp BP Pulse Ox 97.4 F 54 L 18 164/60 H 97 07/03/17 07:57 07/03/17 07:57 07/03/17 07:57 07/03/17 07:57 07/03/17 07:57 Intake & Output 07/02/17 07/03/17 07/04/17 06:59 06:59 06:59 Intake Total 890 310 Output Total 975 400 Balance -85 -90 General appearance: PRESENT: no acute distress, cooperative Head exam: PRESENT: atraumatic Ear exam: PRESENT: normal external ear exam Respiratory exam: PRESENT: decreased breath sounds, rhonchi, wheezes Cardiovascular exam: PRESENT: RRR. ABSENT: diastolic murmur, rubs, systolic murmur Pulses: PRESENT: normal dorsalis pedis pul GI/Abdominal exam: PRESENT: normal bowel sounds, soft. ABSENT: distended, guarding, mass, organolmegaly, rebound, tenderness Neurological exam: PRESENT: alert, awake, oriented to person, oriented to place , oriented to time, oriented to situation, CN II-XII grossly intact. ABSENT: motor sensory deficit Skin exam: PRESENT: dry, intact, warm. ABSENT: cyanosis, rash Results Laboratory Results: 07/02/17 05:46 07/02/17 05:46 06/30/17 06:00 NT-Pro-B Natriuret Pep 544 Impressions: KUB X-Ray 06/24/17 10:17 IMPRESSION: Distal OG tube appears to be in good position. Chest X-Ray 06/30/17 00:00 IMPRESSION: No acute findings in the chest. Chest/Abdomen CTA 07/01/17 00:00 IMPRESSION: Medial segment right middle lobe lung consolidation worrisome for a small focus of pneumonia. Probable reactive mediastinal adenopathy Heavily calcified aortic valve with thickened left ventricular myocardium and mild dilatation of the ascending thoracic aorta. Findings worrisome for aortic stenosis Assessment & Plan - Diagnosis (1) Acute on chronic respiratory failure with hypoxia and hypercapnia Is this a current diagnosis for this admission?: Yes Plan: Patient is still pretty dyspneic but from all accounts she appears to be getting better. She will continue with physical therapy with pulmonary rehabilitation. Will follow up with [facility]. I will continue to taper her steroids as per her response. She is clearly deconditioned. (2) COPD exacerbation Is this a current diagnosis for this admission?: Yes Plan: Continue with bronchodilators and continue to taper steroids as tolerated (3) Hypertension Qualifiers: Hypertension type: essential hypertension Qualified Code(s): I10 - Essential (primary) hypertension Is this a current diagnosis for this admission?: Yes Plan: We will continue with amlodipine as well as lisinopril and make further adjustments as needed. (4) Anemia Is this a current diagnosis for this admission?: Yes (5) Elevated LFTs Is this a current diagnosis for this admission?: Yes (6) Encephalopathy Is this a current diagnosis for this admission?: Yes (7) Hypovolemic shock Is this a current diagnosis for this admission?: Yes - Time Time Spent with patient: 15-24 minutes - Including discussions with daughter Anticipated discharge: Home - Inpatient Certification Medical Necessity: Need Close Monitoring Due to Risk of Patient Decompensation, Risk of Complication if Not Cared For in Hospital
[2017-07-03] MEDS ORDERED: ALPRAZOLAM 0.5 MG TABLET PO SCH (11:30)
[2017-07-03] MEDS: IPRATROPIUM/ALBUTEROL 0.5-2.5 MG/3 ML AMPUL NEB PRN ×2 (13:01→20:40)
[2017-07-03] MEDS: ACETAMINOPHEN 325 MG TABLET PO PRN (22:38)
[2017-07-03] MEDS: TIZANIDINE HCL 4 MG TABLET PO PRN (22:38)
[2017-07-03] MEDS: MONTELUKAST SODIUM 10 MG TABLET PO SCH (22:38)
[2017-07-03] MEDS: ATORVASTATIN CALCIUM 10 MG TABLET PO SCH (22:38)
[2017-07-04] MEDS: NORMAL SALINE INJ/PF 0.9% 10 ML SDV IV SCH ×3 (05:07→22:06)
[2017-07-04 05:53] LABS: ABSOLUTE LYMPHOCYTES (AUTO) 1.4 10^3/uL (0.5-4.7); ABSOLUTE NEUT (AUTO) 7.8 10^3/uL (1.7-8.2); EOSINOPHILS % (AUTO) 0.1 % (0-6); HEMOGLOBIN 11.1 g/dL (12.0-15.5); LYMPHOCYTES % (AUTO) 13.7 % (13-45); MEAN CORPUSCULAR HEMOGLOBIN 27.8 pg (27.0-33.4); MEAN CORPUSCULAR HGB CONC 33.5 g/dL (32.0-36.0); MEAN CORPUSCULAR VOLUME 83 fl (80-97); MONOCYTES % (AUTO) 9.5 % (3-13); PLATELET COUNT 222 10^3/uL (150-450); RED BLOOD COUNT 3.98 10^6/uL (3.72-5.28); RED CELL DISTRIBUTION WIDTH 14.5 % (11.5-14.0); SEGMENTED NEUTROPHILS % (AUTO) 76.7 % (42-78); TOTAL CELLS COUNTED % (AUTO) 100 %; WHITE BLOOD COUNT 10.1 10^3/uL (4.0-10.5)
[2017-07-04 06:06] LABS: BLOOD UREA NITROGEN 26 mg/dL (7-20); CALCIUM 8.8 mg/dL (8.4-10.2); GLUCOSE 75 mg/dL (75-110)
[2017-07-04 06:25] LABS: CHLORIDE 98 mmol/L (98-107); POTASSIUM 4.3 mmol/L (3.6-5.0); SODIUM 143.4 mmol/L (137-145)
[2017-07-04] MEDS: ACETAMINOPHEN 325 MG TABLET PO PRN ×2 (08:31→22:05)
[2017-07-04] MEDS: FLUTICASONE NASAL SPRAY 50 MCG/SPRY 120 SPRAY/16 GM NASL SCH ×2 (09:05→22:10)
[2017-07-04] MEDS: AMLODIPINE BESYLATE 5 MG TABLET PO SCH ×2 (09:13→22:04)
[2017-07-04] MEDS: LISINOPRIL 10 MG TABLET PO SCH (09:16)
[2017-07-04] MEDS: NYSTATIN/DEXAMETH/DIPHEN SUSP 120 ML PO SCH ×4 (09:16→22:07)
[2017-07-04] MEDS: PREDNISONE 20 MG TABLET PO SCH ×2 (09:16→16:55)
[2017-07-04] MEDS: ENOXAPARIN SODIUM INJ 40 MG/0.4 ML DISP.SYRIN SUBCUT SCH (09:16)
[2017-07-04] MEDS: IPRATROPIUM/ALBUTEROL 0.5-2.5 MG/3 ML AMPUL NEB PRN (09:55)
[2017-07-04] MEDS: TIZANIDINE HCL 4 MG TABLET PO PRN (16:55)
--- NOTE | 2017-07-04 18:00 | PDOC PROGRESS REPORT ---
Subjective Progress Note for:: 07/04/17 Subjective:: The patient is a 66-year-old -[place] female who presented to the emergency room with significant respiratory distress. At the time of presentation she was repaired apparently oxygenating at 54% on room air. The patient was initially started on BiPAP and her oxygen saturations improved into the 80s. She was found to be confused and then became hypotensive. There was no evidence of pneumonia although the patient was noted to have cold-like symptoms at the time. The patient eventually became hypercapnic and hypoxic to the point that she was intubated and required vasopressors. She was treated with mechanical ventilation as well as steroids and nebulizers. There has never been evidence of an infectious process. She was successfully extubated on June 26, 2017 however she remains chronically hypercapnic but her mental status is back to its baseline. She has been transitioned out of the ICU. Chest x-rays continued to reveal no infiltrates. She does state that she recently had a CT scan performed as an outpatient. She reportedly had pulmonary nodules on that scan. Pulmonology has been consulted Patient feels better today, breathing is improved Reason For Visit: ACUTE RESPIRATORY FAILURE WITH HYPERCARBIA Physical Exam Vital Signs: Temp Pulse Resp BP Pulse Ox 97.5 F 61 23 H 141/59 H 100 07/04/17 11:38 07/04/17 14:00 07/04/17 16:10 07/04/17 11:38 07/04/17 11:38 Intake & Output 07/03/17 07/04/17 07/05/17 06:59 06:59 06:59 Intake Total 310 1067 270 Output Total 400 300 Balance -90 767 270 General appearance: PRESENT: no acute distress, well-developed, well-nourished, other - BIPAP mask on Head exam: PRESENT: atraumatic, normocephalic Eye exam: PRESENT: conjunctiva pink, EOMI, PERRLA. ABSENT: scleral icterus Ear exam: PRESENT: normal external ear exam Mouth exam: PRESENT: moist, tongue midline Neck exam: ABSENT: carotid bruit, JVD, lymphadenopathy, thyromegaly Respiratory exam: PRESENT: decreased breath sounds, rhonchi. ABSENT: rales, wheezes Cardiovascular exam: PRESENT: RRR. ABSENT: diastolic murmur, rubs, systolic murmur Pulses: PRESENT: normal dorsalis pedis pul Vascular exam: PRESENT: normal capillary refill GI/Abdominal exam: PRESENT: normal bowel sounds, soft. ABSENT: distended, guarding, mass, organolmegaly, rebound, tenderness Rectal exam: PRESENT: deferred Extremities exam: PRESENT: full ROM. ABSENT: calf tenderness, clubbing, pedal edema Neurological exam: PRESENT: alert, awake, oriented to person, oriented to place , oriented to time, oriented to situation, CN II-XII grossly intact. ABSENT: motor sensory deficit Psychiatric exam: PRESENT: appropriate affect, normal mood. ABSENT: homicidal ideation, suicidal ideation Skin exam: PRESENT: dry, intact, warm. ABSENT: cyanosis, rash Results Laboratory Results: 07/04/17 05:33 07/04/17 05:33 07/04/17 07/04/17 05:33 05:33 WBC 10.1 RBC 3.98 Hgb 11.1 L Hct 33.0 L MCV 83 MCH 27.8 MCHC 33.5 RDW 14.5 H Plt Count 222 Seg Neutrophils % 76.7 Lymphocytes % 13.7 Monocytes % 9.5 Eosinophils % 0.1 Basophils % 0.0 Absolute Neutrophils 7.8 Absolute Lymphocytes 1.4 Absolute Monocytes 1.0 Absolute Eosinophils 0.0 Absolute Basophils 0.0 Sodium 143.4 Potassium 4.3 Chloride 98 Carbon Dioxide > 40 H* Anion Gap 5 BUN 26 H Creatinine 0.89 Est GFR ( Amer) > 60 Est GFR (Non-Af Amer) > 60 Glucose 75 Calcium 8.8 06/30/17 06:00 NT-Pro-B Natriuret Pep 544 Impressions: KUB X-Ray 06/24/17 10:17 IMPRESSION: Distal OG tube appears to be in good position. Chest X-Ray 06/30/17 00:00 IMPRESSION: No acute findings in the chest. Chest/Abdomen CTA 07/01/17 00:00 IMPRESSION: Medial segment right middle lobe lung consolidation worrisome for a small focus of pneumonia. Probable reactive mediastinal adenopathy Heavily calcified aortic valve with thickened left ventricular myocardium and mild dilatation of the ascending thoracic aorta. Findings worrisome for aortic stenosis Assessment & Plan - Diagnosis (1) Acute on chronic respiratory failure with hypoxia and hypercapnia Is this a current diagnosis for this admission?: Yes Plan: Improving (2) COPD exacerbation Is this a current diagnosis for this admission?: Yes Plan: Continue with bronchodilators and continue to taper steroids as tolerated (3) Hypertension Qualifiers: Hypertension type: essential hypertension Qualified Code(s): I10 - Essential (primary) hypertension Is this a current diagnosis for this admission?: Yes Plan: We will continue with amlodipine as well as lisinopril and make further adjustments as needed. (4) Anemia Is this a current diagnosis for this admission?: Yes Plan: Stable (5) Elevated LFTs Is this a current diagnosis for this admission?: Yes Plan: Likely secondary to acute illness. Will continue to monitor her LFTs (6) Encephalopathy Is this a current diagnosis for this admission?: Yes Plan: Secondary to acute illness. This has resolved (7) Hypovolemic shock Is this a current diagnosis for this admission?: Yes Plan: On initial presentation and admission to the ICU, since resolved. - Time Time Spent with patient: 15-24 minutes - Inpatient Certification Medical Necessity: Need for Nebulizer Therapy and Monitoring of Response
[2017-07-04] MEDS: MONTELUKAST SODIUM 10 MG TABLET PO SCH (22:04)
[2017-07-04] MEDS: ATORVASTATIN CALCIUM 10 MG TABLET PO SCH (22:04)
[2017-07-05] MEDS: NORMAL SALINE INJ/PF 0.9% 10 ML SDV IV SCH ×3 (06:51→22:36)
[2017-07-05] MEDS: LISINOPRIL 10 MG TABLET PO SCH (10:26)
[2017-07-05] MEDS: AMLODIPINE BESYLATE 5 MG TABLET PO SCH ×2 (10:26→22:36)
[2017-07-05] MEDS: PREDNISONE 20 MG TABLET PO SCH (10:27)
[2017-07-05] MEDS: ENOXAPARIN SODIUM INJ 40 MG/0.4 ML DISP.SYRIN SUBCUT SCH (10:27)
[2017-07-05] MEDS: NYSTATIN/DEXAMETH/DIPHEN SUSP 120 ML PO SCH ×4 (10:27→22:35)
[2017-07-05] MEDS: FLUTICASONE NASAL SPRAY 50 MCG/SPRY 120 SPRAY/16 GM NASL SCH ×2 (10:28→22:30)
[2017-07-05] MEDS: IPRATROPIUM/ALBUTEROL 0.5-2.5 MG/3 ML AMPUL NEB PRN ×2 (11:54→20:23)
--- NOTE | 2017-07-05 15:51 | PDOC PROGRESS REPORT ---
Subjective Progress Note for:: 07/05/17 Subjective:: The patient is a 66-year-old -[place] female who presented to the emergency room with significant respiratory distress. At the time of presentation she was repaired apparently oxygenating at 54% on room air. The patient was initially started on BiPAP and her oxygen saturations improved into the 80s. She was found to be confused and then became hypotensive. There was no evidence of pneumonia although the patient was noted to have cold-like symptoms at the time. The patient eventually became hypercapnic and hypoxic to the point that she was intubated and required vasopressors. She was treated with mechanical ventilation as well as steroids and nebulizers. There has never been evidence of an infectious process. She was successfully extubated on June 26, 2017 however she remains chronically hypercapnic but her mental status is back to its baseline. She has been transitioned out of the ICU. Chest x-rays continued to reveal no infiltrates. She does state that she recently had a CT scan performed as an outpatient. She reportedly had pulmonary nodules on that scan. Pulmonology has been consulted Patient fsays she had trouble with the PIPAp due to the mask fitness Reason For Visit: ACUTE RESPIRATORY FAILURE WITH HYPERCARBIA Physical Exam Vital Signs: Temp Pulse Resp BP Pulse Ox 97.1 F 83 22 H 141/56 H 98 07/05/17 11:39 07/05/17 14:00 07/05/17 11:54 07/05/17 11:39 07/05/17 11:54 Intake & Output 07/04/17 07/05/17 07/06/17 06:59 06:59 06:59 Intake Total 1067 448 920 Output Total 300 300 700 Balance 767 148 220 General appearance: PRESENT: no acute distress Head exam: PRESENT: atraumatic Neck exam: ABSENT: carotid bruit, JVD, lymphadenopathy, thyromegaly Respiratory exam: PRESENT: decreased breath sounds, rhonchi - few scattered, unlabored. ABSENT: accessory muscle use, chest wall tenderness Pulses: PRESENT: normal carotid pulses GI/Abdominal exam: PRESENT: normal bowel sounds, soft. ABSENT: distended, guarding, mass, organolmegaly, rebound, tenderness Rectal exam: PRESENT: deferred Neurological exam: PRESENT: alert, awake, oriented to person, oriented to place , oriented to time, oriented to situation, CN II-XII grossly intact. ABSENT: motor sensory deficit Results Laboratory Results: 07/04/17 05:33 07/04/17 05:33 06/30/17 06:00 NT-Pro-B Natriuret Pep 544 Impressions: KUB X-Ray 06/24/17 10:17 IMPRESSION: Distal OG tube appears to be in good position. Chest X-Ray 06/30/17 00:00 IMPRESSION: No acute findings in the chest. Chest/Abdomen CTA 07/01/17 00:00 IMPRESSION: Medial segment right middle lobe lung consolidation worrisome for a small focus of pneumonia. Probable reactive mediastinal adenopathy Heavily calcified aortic valve with thickened left ventricular myocardium and mild dilatation of the ascending thoracic aorta. Findings worrisome for aortic stenosis Assessment & Plan - Diagnosis (1) Acute on chronic respiratory failure with hypoxia and hypercapnia Is this a current diagnosis for this admission?: Yes Plan: Continues to improve. She needs to improve her exercise tolerance. She is still not able to ambulate far due to the dyspnea (2) COPD exacerbation Is this a current diagnosis for this admission?: Yes Plan: Continue with bronchodilators and continue to taper steroids as tolerated Down to 20mg daily (3) Hypertension Qualifiers: Hypertension type: essential hypertension Qualified Code(s): I10 - Essential (primary) hypertension Is this a current diagnosis for this admission?: Yes Plan: Continue with amlodipine as well as lisinopril and make further adjustments as needed. (4) Anemia Is this a current diagnosis for this admission?: Yes Plan: Stable (5) Elevated LFTs Is this a current diagnosis for this admission?: Yes Plan: Likely secondary to acute illness. Improved (6) Encephalopathy Is this a current diagnosis for this admission?: Yes Plan: Secondary to acute illness. This has resolved (7) Hypovolemic shock Is this a current diagnosis for this admission?: Yes - Time Time Spent with patient: 15-24 minutes - Inpatient Certification Medical Necessity: Need for Nebulizer Therapy and Monitoring of Response - Plan Summary Plan Summary: Encourage ambulation
[2017-07-05] MEDS: MONTELUKAST SODIUM 10 MG TABLET PO SCH (22:35)
[2017-07-05] MEDS: ATORVASTATIN CALCIUM 10 MG TABLET PO SCH (22:36)
[2017-07-05] MEDS: TIZANIDINE HCL 4 MG TABLET PO PRN (22:47)
[2017-07-06] MEDS: NORMAL SALINE INJ/PF 0.9% 10 ML SDV IV SCH ×3 (06:12→22:17)
[2017-07-06] MEDS: IPRATROPIUM/ALBUTEROL 0.5-2.5 MG/3 ML AMPUL NEB PRN ×2 (09:12→16:20)
[2017-07-06] MEDS: ENOXAPARIN SODIUM INJ 40 MG/0.4 ML DISP.SYRIN SUBCUT SCH (09:37)
[2017-07-06] MEDS: FLUTICASONE NASAL SPRAY 50 MCG/SPRY 120 SPRAY/16 GM NASL SCH ×2 (09:38→21:58)
[2017-07-06] MEDS: NYSTATIN/DEXAMETH/DIPHEN SUSP 120 ML PO SCH ×4 (09:38→21:59)
[2017-07-06] MEDS: LISINOPRIL 10 MG TABLET PO SCH (09:38)
[2017-07-06] MEDS: PREDNISONE 20 MG TABLET PO SCH (09:39)
[2017-07-06] MEDS: AMLODIPINE BESYLATE 5 MG TABLET PO SCH ×2 (09:39→21:58)
[2017-07-06] MEDS: ACETAMINOPHEN 325 MG TABLET PO PRN (11:31)
--- NOTE | 2017-07-06 16:38 | PDOC PROGRESS REPORT ---
Subjective Progress Note for:: 07/06/17 Subjective:: The patient is a 66-year-old -[place] female who presented to the emergency room with significant respiratory distress. At the time of presentation she was repaired apparently oxygenating at 54% on room air. The patient was initially started on BiPAP and her oxygen saturations improved into the 80s. She was found to be confused and then became hypotensive. There was no evidence of pneumonia although the patient was noted to have cold-like symptoms at the time. The patient eventually became hypercapnic and hypoxic to the point that she was intubated and required vasopressors. She was treated with mechanical ventilation as well as steroids and nebulizers. There has never been evidence of an infectious process. She was successfully extubated on June 26, 2017 however she remains chronically hypercapnic but her mental status is back to its baseline. She has been transitioned out of the ICU. Chest x-rays continued to reveal no infiltrates. She does state that she recently had a CT scan performed as an outpatient. She reportedly had pulmonary nodules on that scan. Pulmonology has been consulted Patient doing much better today and thinks her tolerance for leaving the BIPAP off is improved Reason For Visit: ACUTE RESPIRATORY FAILURE WITH HYPERCARBIA Physical Exam Vital Signs: Temp Pulse Resp BP Pulse Ox 98.2 F 67 23 H 143/64 H 97 07/06/17 12:00 07/06/17 16:20 07/06/17 16:20 07/06/17 12:00 07/06/17 16:20 Intake & Output 07/05/17 07/06/17 07/07/17 06:59 06:59 06:59 Intake Total 448 1535 Output Total 300 1150 Balance 148 385 General appearance: PRESENT: no acute distress, well-nourished Head exam: PRESENT: atraumatic Eye exam: PRESENT: conjunctiva pink, EOMI, PERRLA. ABSENT: scleral icterus Ear exam: PRESENT: normal external ear exam Mouth exam: PRESENT: moist, tongue midline Respiratory exam: PRESENT: decreased breath sounds, rhonchi. ABSENT: wheezes Cardiovascular exam: PRESENT: RRR. ABSENT: diastolic murmur, rubs, systolic murmur Pulses: PRESENT: normal dorsalis pedis pul GI/Abdominal exam: PRESENT: normal bowel sounds, soft. ABSENT: distended, guarding, mass, organolmegaly, rebound, tenderness Rectal exam: PRESENT: deferred Extremities exam: PRESENT: full ROM. ABSENT: calf tenderness, clubbing, pedal edema Neurological exam: PRESENT: alert, awake, oriented to person, oriented to place , oriented to time, oriented to situation, CN II-XII grossly intact. ABSENT: motor sensory deficit Results Laboratory Results: 07/04/17 05:33 07/04/17 05:33 06/30/17 06:00 NT-Pro-B Natriuret Pep 544 Impressions: KUB X-Ray 06/24/17 10:17 IMPRESSION: Distal OG tube appears to be in good position. Chest X-Ray 06/30/17 00:00 IMPRESSION: No acute findings in the chest. Chest/Abdomen CTA 07/01/17 00:00 IMPRESSION: Medial segment right middle lobe lung consolidation worrisome for a small focus of pneumonia. Probable reactive mediastinal adenopathy Heavily calcified aortic valve with thickened left ventricular myocardium and mild dilatation of the ascending thoracic aorta. Findings worrisome for aortic stenosis Assessment & Plan - Diagnosis (1) Acute on chronic respiratory failure with hypoxia and hypercapnia Is this a current diagnosis for this admission?: Yes Plan: Continues to improve. (2) COPD exacerbation Is this a current diagnosis for this admission?: Yes Plan: Continue with bronchodilators and continue to taper steroids as tolerated Down to 10mg daily (3) Hypertension Qualifiers: Hypertension type: essential hypertension Qualified Code(s): I10 - Essential (primary) hypertension Is this a current diagnosis for this admission?: Yes Plan: Continue with amlodipine as well as lisinopril and make further adjustments as needed. (4) Anemia Is this a current diagnosis for this admission?: Yes Plan: Stable (5) Elevated LFTs Is this a current diagnosis for this admission?: Yes Plan: Likely secondary to acute illness. Improved (6) Encephalopathy Is this a current diagnosis for this admission?: Yes Plan: Secondary to acute illness. This has resolved (7) Hypovolemic shock Is this a current diagnosis for this admission?: Yes - Time Time Spent with patient: 15-24 minutes Anticipated discharge: Home Within: within 48 hours - Inpatient Certification Medical Necessity: Need for Nebulizer Therapy and Monitoring of Response
[2017-07-06] MEDS: MONTELUKAST SODIUM 10 MG TABLET PO SCH (21:58)
[2017-07-06] MEDS: ATORVASTATIN CALCIUM 10 MG TABLET PO SCH (21:58)
[2017-07-06] MEDS: TIZANIDINE HCL 4 MG TABLET PO PRN (22:17)
[2017-07-07] MEDS: NORMAL SALINE INJ/PF 0.9% 10 ML SDV IV SCH ×3 (05:52→23:10)
[2017-07-07] MEDS: IPRATROPIUM/ALBUTEROL 0.5-2.5 MG/3 ML AMPUL NEB PRN (09:27)
[2017-07-07] MEDS: LISINOPRIL 10 MG TABLET PO SCH (09:37)
[2017-07-07] MEDS: FLUTICASONE NASAL SPRAY 50 MCG/SPRY 120 SPRAY/16 GM NASL SCH ×2 (09:37→23:10)
[2017-07-07] MEDS: PREDNISONE 20 MG TABLET PO SCH (09:38)
[2017-07-07] MEDS: AMLODIPINE BESYLATE 5 MG TABLET PO SCH ×2 (09:38→23:07)
[2017-07-07] MEDS: NYSTATIN/DEXAMETH/DIPHEN SUSP 120 ML PO SCH ×4 (09:39→23:10)
[2017-07-07] MEDS: ENOXAPARIN SODIUM INJ 40 MG/0.4 ML DISP.SYRIN SUBCUT SCH (09:41)
[2017-07-07] MEDS: TIZANIDINE HCL 4 MG TABLET PO PRN (12:58)
[2017-07-07 13:14] LABS: CARBON DIOXIDE 44 mmol/L (22-30)
[2017-07-07 13:16] LABS: ANION GAP 1 (5-19)
--- NOTE | 2017-07-07 15:34 | PDOC PROGRESS REPORT ---
Subjective Progress Note for:: 07/07/17 Subjective:: The patient is a 66-year-old -[place] female who presented to the emergency room with significant respiratory distress. At the time of presentation she was repaired apparently oxygenating at 54% on room air. The patient was initially started on BiPAP and her oxygen saturations improved into the 80s. She was found to be confused and then became hypotensive. There was no evidence of pneumonia although the patient was noted to have cold-like symptoms at the time. The patient eventually became hypercapnic and hypoxic to the point that she was intubated and required vasopressors. She was treated with mechanical ventilation as well as steroids and nebulizers. There has never been evidence of an infectious process. She was successfully extubated on June 26, 2017 however she remains chronically hypercapnic but her mental status is back to its baseline. She has been transitioned out of the ICU. Chest x-rays continued to reveal no infiltrates. She does state that she recently had a CT scan performed as an outpatient. She reportedly had pulmonary nodules on that scan. Pulmonology has been consulted Patient now says she is ready to go to Rehab. Social service has been contacted Reason For Visit: ACUTE RESPIRATORY FAILURE WITH HYPERCARBIA Physical Exam Vital Signs: Temp Pulse Resp BP Pulse Ox 98.7 F 64 21 H 140/56 H 98 07/07/17 12:00 07/07/17 14:00 07/07/17 12:45 07/07/17 12:00 07/07/17 12:45 Intake & Output 07/06/17 07/07/17 07/08/17 06:59 06:59 06:59 Intake Total 1535 1300 Output Total 1150 350 Balance 385 950 General appearance: PRESENT: no acute distress Head exam: PRESENT: atraumatic Eye exam: PRESENT: conjunctiva pink, EOMI, PERRLA. ABSENT: scleral icterus Mouth exam: PRESENT: other - BIPAP mask Neck exam: ABSENT: carotid bruit, JVD, lymphadenopathy, thyromegaly Respiratory exam: PRESENT: decreased breath sounds. ABSENT: rales, rhonchi, wheezes Cardiovascular exam: PRESENT: RRR. ABSENT: diastolic murmur, rubs, systolic murmur Pulses: PRESENT: normal dorsalis pedis pul GI/Abdominal exam: PRESENT: normal bowel sounds, soft. ABSENT: distended, guarding, mass, organolmegaly, rebound, tenderness Rectal exam: PRESENT: deferred Neurological exam: PRESENT: alert, awake, oriented to person, oriented to place , oriented to time Psychiatric exam: PRESENT: appropriate affect, normal mood. ABSENT: homicidal ideation, suicidal ideation Results Laboratory Results: 07/04/17 05:33 07/04/17 05:33 07/04/17 05:33 Carbon Dioxide 44 H* Anion Gap 1 L 06/30/17 06:00 NT-Pro-B Natriuret Pep 544 Impressions: KUB X-Ray 06/24/17 10:17 IMPRESSION: Distal OG tube appears to be in good position. Chest X-Ray 06/30/17 00:00 IMPRESSION: No acute findings in the chest. Chest/Abdomen CTA 07/01/17 00:00 IMPRESSION: Medial segment right middle lobe lung consolidation worrisome for a small focus of pneumonia. Probable reactive mediastinal adenopathy Heavily calcified aortic valve with thickened left ventricular myocardium and mild dilatation of the ascending thoracic aorta. Findings worrisome for aortic stenosis Assessment & Plan - Diagnosis (1) Acute on chronic respiratory failure with hypoxia and hypercapnia Is this a current diagnosis for this admission?: Yes Plan: Continues to improve. (2) COPD exacerbation Is this a current diagnosis for this admission?: Yes Plan: Continue with bronchodilators and continue to taper steroids as tolerated (3) Hypertension Qualifiers: Hypertension type: essential hypertension Qualified Code(s): I10 - Essential (primary) hypertension Is this a current diagnosis for this admission?: Yes Plan: Continue with amlodipine as well as lisinopril and make further adjustments as needed. (4) Anemia Is this a current diagnosis for this admission?: Yes (5) Elevated LFTs Is this a current diagnosis for this admission?: Yes Plan: Likely secondary to acute illness. Improved (6) Encephalopathy Is this a current diagnosis for this admission?: Yes Plan: Secondary to acute illness. This has resolved (7) Hypovolemic shock Is this a current diagnosis for this admission?: Yes - Time Time Spent with patient: 15-24 minutes Anticipated discharge: Acute Rehab - Will consult DC planning for Rehab placement
[2017-07-07] MEDS: ATORVASTATIN CALCIUM 10 MG TABLET PO SCH (23:09)
[2017-07-07] MEDS: MONTELUKAST SODIUM 10 MG TABLET PO SCH (23:10)
[2017-07-08] MEDS: NORMAL SALINE INJ/PF 0.9% 10 ML SDV IV SCH ×3 (05:23→23:43)
[2017-07-08 05:44] LABS: ABSOLUTE EOSINOPHILS # (AUTO) 0.1 10^3/uL (0.0-0.6); ABSOLUTE LYMPHOCYTES (AUTO) 1.7 10^3/uL (0.5-4.7); ABSOLUTE MONOCYTES (AUTO) 0.5 10^3/uL (0.1-1.4); ABSOLUTE NEUT (AUTO) 6.8 10^3/uL (1.7-8.2); BASOPHILS % (AUTO) 0.5 % (0-2); EOSINOPHILS % (AUTO) 0.8 % (0-6); HEMATOCRIT 31.2 % (36.0-47.0); HEMOGLOBIN 10.4 g/dL (12.0-15.5); LYMPHOCYTES % (AUTO) 18.6 % (13-45); MEAN CORPUSCULAR HGB CONC 33.5 g/dL (32.0-36.0); MEAN CORPUSCULAR VOLUME 84 fl (80-97); MONOCYTES % (AUTO) 5.5 % (3-13); PLATELET COUNT 203 10^3/uL (150-450); RED BLOOD COUNT 3.73 10^6/uL (3.72-5.28); SEGMENTED NEUTROPHILS % (AUTO) 74.6 % (42-78); TOTAL CELLS COUNTED % (AUTO) 100 %; WHITE BLOOD COUNT 9.1 10^3/uL (4.0-10.5)
[2017-07-08 06:13] LABS: BLOOD UREA NITROGEN 18 mg/dL (7-20); CHLORIDE 100 mmol/L (98-107); GLUCOSE 92 mg/dL (75-110)
[2017-07-08 07:31] LABS: CARBON DIOXIDE 36 mmol/L (22-30); POTASSIUM 3.9 mmol/L (3.6-5.0); SODIUM 141.6 mmol/L (137-145)
[2017-07-08 07:33] LABS: ANION GAP 6 (5-19)
[2017-07-08] MEDS: IPRATROPIUM/ALBUTEROL 0.5-2.5 MG/3 ML AMPUL NEB PRN (09:05)
[2017-07-08] MEDS: ENOXAPARIN SODIUM INJ 40 MG/0.4 ML DISP.SYRIN SUBCUT SCH (12:05)
[2017-07-08] MEDS: LISINOPRIL 10 MG TABLET PO SCH (12:06)
[2017-07-08] MEDS: AMLODIPINE BESYLATE 5 MG TABLET PO SCH ×2 (12:06→23:42)
[2017-07-08] MEDS: FLUTICASONE NASAL SPRAY 50 MCG/SPRY 120 SPRAY/16 GM NASL SCH ×2 (12:06→23:45)
[2017-07-08] MEDS: PREDNISONE 20 MG TABLET PO SCH (12:07)
[2017-07-08] MEDS: NYSTATIN/DEXAMETH/DIPHEN SUSP 120 ML PO SCH ×4 (12:08→23:45)
--- NOTE | 2017-07-08 13:59 | PDOC PROGRESS REPORT ---
Subjective Progress Note for:: 07/08/17 Subjective:: The patient is a 66-year-old -Maltese female who presented to the emergency room with significant respiratory distress. At the time of presentation she was repaired apparently oxygenating at 54% on room air. The patient was initially started on BiPAP and her oxygen saturations improved into the 80s. She was found to be confused and then became hypotensive. There was no evidence of pneumonia although the patient was noted to have cold-like symptoms at the time. The patient eventually became hypercapnic and hypoxic to the point that she was intubated and required vasopressors. She was treated with mechanical ventilation as well as steroids and nebulizers. There has never been evidence of an infectious process. She was successfully extubated on June 26, 2017 however she remains chronically hypercapnic but her mental status is back to its baseline. She has been transitioned out of the ICU. Chest x-rays continued to reveal no infiltrates. She does state that she recently had a CT scan performed as an outpatient. She reportedly had pulmonary nodules on that scan. Pulmonology has been consulted plan is not to discharge to rehab once bed is available Reason For Visit: ACUTE RESPIRATORY FAILURE WITH HYPERCARBIA Physical Exam Vital Signs: Temp Pulse Resp BP Pulse Ox 97.4 F 57 L 16 142/52 H 100 07/08/17 08:00 07/08/17 09:05 07/08/17 09:05 07/08/17 08:00 07/08/17 09:05 Intake & Output 07/07/17 07/08/17 07/09/17 06:59 06:59 06:59 Intake Total 1300 2218 Output Total 350 Balance 950 2218 Weight 101.3 kg General appearance: PRESENT: no acute distress, other - pursed lips Head exam: PRESENT: atraumatic Eye exam: PRESENT: conjunctiva pink, EOMI, PERRLA. ABSENT: scleral icterus Ear exam: PRESENT: normal external ear exam Neck exam: ABSENT: carotid bruit, JVD, lymphadenopathy, thyromegaly Respiratory exam: PRESENT: decreased breath sounds, retraction. ABSENT: chest wall tenderness, clear to auscultation jett, crackles, rales, rhonchi, stridor, tachypnea Cardiovascular exam: PRESENT: RRR. ABSENT: diastolic murmur, rubs, systolic murmur Pulses: PRESENT: normal dorsalis pedis pul Rectal exam: PRESENT: deferred Extremities exam: PRESENT: full ROM. ABSENT: calf tenderness, clubbing, pedal edema Musculoskeletal exam: PRESENT: ambulatory Results Laboratory Results: 07/08/17 05:20 07/08/17 05:20 07/08/17 07/08/17 05:20 05:20 WBC 9.1 RBC 3.73 Hgb 10.4 L Hct 31.2 L MCV 84 MCH 28.0 MCHC 33.5 RDW 15.0 H Plt Count 203 Seg Neutrophils % 74.6 Lymphocytes % 18.6 Monocytes % 5.5 Eosinophils % 0.8 Basophils % 0.5 Absolute Neutrophils 6.8 Absolute Lymphocytes 1.7 Absolute Monocytes 0.5 Absolute Eosinophils 0.1 Absolute Basophils 0.0 Sodium 141.6 Potassium 3.9 Chloride 100 Carbon Dioxide 36 H Anion Gap 6 BUN 18 Creatinine 0.89 Est GFR ( Amer) > 60 Est GFR (Non-Af Amer) > 60 Glucose 92 Calcium 9.0 06/30/17 06:00 NT-Pro-B Natriuret Pep 544 Impressions: KUB X-Ray 06/24/17 10:17 IMPRESSION: Distal OG tube appears to be in good position. Chest X-Ray 06/30/17 00:00 IMPRESSION: No acute findings in the chest. Chest/Abdomen CTA 07/01/17 00:00 IMPRESSION: Medial segment right middle lobe lung consolidation worrisome for a small focus of pneumonia. Probable reactive mediastinal adenopathy Heavily calcified aortic valve with thickened left ventricular myocardium and mild dilatation of the ascending thoracic aorta. Findings worrisome for aortic stenosis Assessment & Plan - Diagnosis (1) Acute on chronic respiratory failure with hypoxia and hypercapnia Is this a current diagnosis for this admission?: Yes Plan: Continues to improve. She would benefit from pulmonary rehabilitation (2) COPD exacerbation Is this a current diagnosis for this admission?: Yes Plan: Continue with bronchodilators and continue to taper steroids as tolerated. May be able to discontinue prednisone and another day also no plans to leave on a low dose (3) Hypertension Qualifiers: Hypertension type: essential hypertension Qualified Code(s): I10 - Essential (primary) hypertension Is this a current diagnosis for this admission?: Yes Plan: Continue with amlodipine as well as lisinopril and make further adjustments as needed. (4) Anemia Is this a current diagnosis for this admission?: Yes Plan: Stable (5) Elevated LFTs Is this a current diagnosis for this admission?: Yes Plan: Likely secondary to acute illness. Improved (6) Encephalopathy Is this a current diagnosis for this admission?: Yes Plan: Secondary to acute illness. This has resolved she is back to her baseline mental status (7) Hypovolemic shock Is this a current diagnosis for this admission?: Yes Plan: On initial presentation and admission to the ICU, since resolved. (8) Chronic respiratory acidosis Is this a current diagnosis for this admission?: Yes Plan: CO2 is improving and down to 36 today - Time Time Spent with patient: 15-24 minutes Medications reviewed and adjusted accordingly: Yes Anticipated discharge: Other - animal husbandry manager has been consulted for rehabilitation placement Within: when bed available - Inpatient Certification Medical Necessity: Need for Nebulizer Therapy and Monitoring of Response Post Hospital Care: Other - Awaiting rehab placement
[2017-07-08] MEDS: ATORVASTATIN CALCIUM 10 MG TABLET PO SCH (23:32)
[2017-07-08] MEDS: TIZANIDINE HCL 4 MG TABLET PO PRN (23:43)
[2017-07-08] MEDS: MONTELUKAST SODIUM 10 MG TABLET PO SCH (23:43)
[2017-07-09] MEDS: NORMAL SALINE INJ/PF 0.9% 10 ML SDV IV SCH ×3 (05:14→22:26)
[2017-07-09] MEDS: LISINOPRIL 10 MG TABLET PO SCH (11:09)
[2017-07-09] MEDS: ENOXAPARIN SODIUM INJ 40 MG/0.4 ML DISP.SYRIN SUBCUT SCH (11:10)
[2017-07-09] MEDS: AMLODIPINE BESYLATE 5 MG TABLET PO SCH ×2 (11:11→22:26)
[2017-07-09] MEDS: PREDNISONE 20 MG TABLET PO SCH (11:11)
[2017-07-09] MEDS: FLUTICASONE NASAL SPRAY 50 MCG/SPRY 120 SPRAY/16 GM NASL SCH ×2 (11:12→22:33)
[2017-07-09] MEDS: NYSTATIN/DEXAMETH/DIPHEN SUSP 120 ML PO SCH ×4 (11:12→22:33)
[2017-07-09] MEDS: IPRATROPIUM/ALBUTEROL 0.5-2.5 MG/3 ML AMPUL NEB PRN (11:12)
[2017-07-09] MEDS ORDERED: BUDESONIDE NEB 0.5 MG/2 ML AMPUL NEB PRN (11:17)
--- NOTE | 2017-07-09 17:02 | PDOC PROGRESS REPORT ---
Subjective Progress Note for:: 07/09/17 Subjective:: This is a 66 year old [place] female who presented to the emergency department with significant respiratory distress. At the time of presentation to the emergency department she was apparently oxygenating at 54% on room air. The patient was initially started on BiPAP and her oxygen saturations improved into the 80s. There is no evidence of pneumonia although the patient was noted to have cold-like symptoms at that time. Patient eventually became hypercapnic and hypoxic to the point that she was intubated. She was treated with mechanical ventilation as well as steroids and nebulizers. There has never been evidence of an infectious process. She was successfully extubated on June 26, 2017 however she remains chronically hypercapnic however not acidotic and her mental status is at baseline. Pulmonology has been consulted. Patient seen this morning on rounds. Complaining of shortness of breath and pursed lip breathing. Patient states she intermittently gets short of breath with various activities. She is not able to stay off BIPAP for longer than 4 hours. Patient was given a Pulmicort nebulizer shortly after morning assessment , and states she is feeling much better when reassessed. Reason For Visit: ACUTE RESPIRATORY FAILURE WITH HYPERCARBIA Physical Exam Vital Signs: Temp Pulse Resp BP Pulse Ox 98.3 F 59 L 21 H 141/57 H 100 07/09/17 16:00 07/09/17 16:00 07/09/17 16:00 07/09/17 16:00 07/09/17 16:00 Intake & Output 07/08/17 07/09/17 07/10/17 06:59 06:59 06:59 Intake Total 2218 2072 Balance 2218 2072 Weight 101.3 kg 100.2 kg General appearance: PRESENT: other - moderate distress Head exam: PRESENT: normocephalic Eye exam: PRESENT: conjunctiva pink Ear exam: PRESENT: normal external ear exam Mouth exam: PRESENT: moist Teeth exam: PRESENT: poor dentation Neck exam: PRESENT: full ROM Respiratory exam: PRESENT: decreased breath sounds, prolonged expiratory phas Cardiovascular exam: PRESENT: +S1, +S2 Vascular exam: PRESENT: normal capillary refill GI/Abdominal exam: PRESENT: soft Rectal exam: PRESENT: deferred Extremities exam: PRESENT: full ROM Musculoskeletal exam: PRESENT: full ROM Neurological exam: PRESENT: alert, awake Results Laboratory Results: 07/08/17 05:20 07/08/17 05:20 06/30/17 06:00 NT-Pro-B Natriuret Pep 544 Impressions: KUB X-Ray 06/24/17 10:17 IMPRESSION: Distal OG tube appears to be in good position. Chest X-Ray 06/30/17 00:00 IMPRESSION: No acute findings in the chest. Chest/Abdomen CTA 07/01/17 00:00 IMPRESSION: Medial segment right middle lobe lung consolidation worrisome for a small focus of pneumonia. Probable reactive mediastinal adenopathy Heavily calcified aortic valve with thickened left ventricular myocardium and mild dilatation of the ascending thoracic aorta. Findings worrisome for aortic stenosis Status: Imported from PACS Assessment & Plan - Diagnosis (1) Acute on chronic respiratory failure with hypoxia and hypercapnia Is this a current diagnosis for this admission?: Yes Plan: Improving. Pulmonology consulted. Patient still required BIPAP on and off depending on activity level. When not on BIPAP she is using supplemental oxygen. Started on some of her home COPD medications today, will increase frequency of nebulizers, and plan for bedside spirometry. (2) COPD exacerbation Is this a current diagnosis for this admission?: Yes Plan: Continue with bronchodilators and inhaled corticosteroids. BiPAP as needed. Started Pulmicort today, patient states she feels better after treatment. Per pulmonology, Will increase frequency of DuoNeb and add Xopenex as needed. (3) Chronic respiratory acidosis Is this a current diagnosis for this admission?: Yes Plan: CO2 is less than 40 today. No evidence of acidosis. Patient is a chronic CO2 retainer (4) Hypertension Qualifiers: Hypertension type: essential hypertension Qualified Code(s): I10 - Essential (primary) hypertension Is this a current diagnosis for this admission?: Yes Plan: Controlled. Continue with amlodipine as well as lisinopril and make further adjustments as needed. (5) Metabolic encephalopathy Plan: Secondary to acute illness. Patient has returned to her baseline mental status. - Time Time Spent with patient: 35 or more minutes Anticipated discharge: Home Within: within 36 hours - Inpatient Certification Based on my medical assessment, after consideration of the patient's comorbidities, presenting symptoms, or acuity I expect that the services needed warrant INPATIENT care.: Yes I certify that my determination is in accordance with my understanding of Medicare's requirements for reasonable and necessary INPATIENT services [42 CFR 412.3e].: Yes Medical Necessity: Need Close Monitoring Due to Risk of Patient Decompensation
[2017-07-09] MEDS: LEVALBUTEROL HCL NEB 1.25 MG/3 ML AMPUL NEB PRN (18:18)
[2017-07-09] MEDS: IPRATROPIUM/ALBUTEROL 0.5-2.5 MG/3 ML AMPUL NEB SCH (19:40)
[2017-07-09] MEDS: BUDESONIDE NEB 0.5 MG/2 ML AMPUL NEB SCH (19:41)
[2017-07-09] MEDS: MONTELUKAST SODIUM 10 MG TABLET PO SCH (22:26)
[2017-07-09] MEDS: ATORVASTATIN CALCIUM 10 MG TABLET PO SCH (22:27)
[2017-07-10] MEDS: LEVALBUTEROL HCL NEB 1.25 MG/3 ML AMPUL NEB PRN (03:14)
[2017-07-10] MEDS: NORMAL SALINE INJ/PF 0.9% 10 ML SDV IV SCH ×3 (05:22→22:11)
[2017-07-10] MEDS: TIZANIDINE HCL 4 MG TABLET PO PRN ×3 (05:22→22:21)
[2017-07-10 08:07] LABS: ABSOLUTE BASOPHILS # (AUTO) 0.1 10^3/uL (0.0-0.2); ABSOLUTE EOSINOPHILS # (AUTO) 0.1 10^3/uL (0.0-0.6); ABSOLUTE LYMPHOCYTES (AUTO) 1.6 10^3/uL (0.5-4.7); ABSOLUTE MONOCYTES (AUTO) 0.4 10^3/uL (0.1-1.4); ABSOLUTE NEUT (AUTO) 5.5 10^3/uL (1.7-8.2); BASOPHILS % (AUTO) 0.7 % (0-2); EOSINOPHILS % (AUTO) 1.1 % (0-6); HEMATOCRIT 31.5 % (36.0-47.0); HEMOGLOBIN 10.3 g/dL (12.0-15.5); LYMPHOCYTES % (AUTO) 20.5 % (13-45); MEAN CORPUSCULAR HEMOGLOBIN 27.5 pg (27.0-33.4); MEAN CORPUSCULAR HGB CONC 32.6 g/dL (32.0-36.0); MEAN CORPUSCULAR VOLUME 84 fl (80-97); MONOCYTES % (AUTO) 5.4 % (3-13); PLATELET COUNT 220 10^3/uL (150-450); RED BLOOD COUNT 3.74 10^6/uL (3.72-5.28); RED CELL DISTRIBUTION WIDTH 14.7 % (11.5-14.0); SEGMENTED NEUTROPHILS % (AUTO) 72.3 % (42-78); TOTAL CELLS COUNTED % (AUTO) 100 %; WHITE BLOOD COUNT 7.7 10^3/uL (4.0-10.5)
[2017-07-10 08:28] LABS: ANION GAP 5 (5-19); BLOOD UREA NITROGEN 15 mg/dL (7-20); CALCIUM 8.8 mg/dL (8.4-10.2); CARBON DIOXIDE 37 mmol/L (22-30); CHLORIDE 99 mmol/L (98-107); GLUCOSE 105 mg/dL (75-110); PHOSPHORUS 4.3 mg/dL (2.5-4.5); SODIUM 140.7 mmol/L (137-145)
[2017-07-10] MEDS: BUDESONIDE NEB 0.5 MG/2 ML AMPUL NEB SCH ×2 (08:33→20:29)
[2017-07-10] MEDS: IPRATROPIUM/ALBUTEROL 0.5-2.5 MG/3 ML AMPUL NEB SCH ×3 (08:33→20:29)
[2017-07-10] MEDS: AMLODIPINE BESYLATE 5 MG TABLET PO SCH ×2 (10:51→22:10)
[2017-07-10] MEDS: LISINOPRIL 10 MG TABLET PO SCH (10:52)
[2017-07-10] MEDS: FLUTICASONE NASAL SPRAY 50 MCG/SPRY 120 SPRAY/16 GM NASL SCH ×2 (10:53→22:10)
[2017-07-10] MEDS: ENOXAPARIN SODIUM INJ 40 MG/0.4 ML DISP.SYRIN SUBCUT SCH (10:53)
[2017-07-10] MEDS: PREDNISONE 20 MG TABLET PO SCH (10:55)
[2017-07-10] MEDS: NYSTATIN/DEXAMETH/DIPHEN SUSP 120 ML PO SCH ×4 (10:56→22:10)
--- NOTE | 2017-07-10 14:56 | PDOC PROGRESS REPORT ---
<ANJALI FLOOD A - Last Filed: 07/10/17 14:54> Subjective Progress Note for:: 07/10/17 Subjective:: This is a 66 year old Filipino female who presented to the emergency department with significant respiratory distress. At the time of presentation to the emergency department she was apparently oxygenating at 54% on room air. The patient was initially started on BiPAP and her oxygen saturations improved into the 80s. There is no evidence of pneumonia although the patient was noted to have cold-like symptoms at that time. Patient eventually became hypercapnic and hypoxic to the point that she was intubated. She was treated with mechanical ventilation as well as steroids and nebulizers. There has never been evidence of an infectious process. She was successfully extubated on June 26, 2017 however she remains chronically hypercapnic however not acidotic and her mental status is at baseline. Pulmonology has been consulted. Patient seen this morning on rounds. Patient reports that she is feeling much better this morning, particularly after receiving her Pulmicort nebulizers. Patient states she was able to stay off of the BiPAP until 3 AM, and only needed until 7AM. Patient is able to sit up on the side of the bed and eat breakfast without becoming short of breath. She is able to speak in complete sentences without having to stop and breath. Reason For Visit: ACUTE RESPIRATORY FAILURE WITH HYPERCARBIA Physical Exam Vital Signs: Temp Pulse Resp BP Pulse Ox 97.5 F 59 L 20 131/57 H 97 07/10/17 07:29 07/10/17 08:33 07/10/17 08:33 07/10/17 07:29 07/10/17 08:33 Intake & Output 07/09/17 07/10/17 07/11/17 06:59 06:59 06:59 Intake Total 2072 480 Balance 2072 480 Weight 100.2 kg 99.1 kg General appearance: PRESENT: no acute distress Head exam: PRESENT: normocephalic Eye exam: PRESENT: conjunctiva pink Mouth exam: PRESENT: dry mucosa Teeth exam: PRESENT: poor dentation Neck exam: PRESENT: full ROM Respiratory exam: PRESENT: clear to auscultation jett, prolonged expiratory phas Cardiovascular exam: PRESENT: +S1, +S2 Pulses: PRESENT: normal radial pulses, normal dorsalis pedis pul GI/Abdominal exam: PRESENT: soft Rectal exam: PRESENT: deferred Extremities exam: PRESENT: full ROM Musculoskeletal exam: PRESENT: full ROM Neurological exam: PRESENT: alert, awake Psychiatric exam: PRESENT: appropriate affect Skin exam: PRESENT: dry Results Laboratory Results: 07/10/17 07:40 07/10/17 07:40 07/10/17 07/10/17 07:40 07:40 WBC 7.7 RBC 3.74 Hgb 10.3 L Hct 31.5 L MCV 84 MCH 27.5 MCHC 32.6 RDW 14.7 H Plt Count 220 Seg Neutrophils % 72.3 Lymphocytes % 20.5 Monocytes % 5.4 Eosinophils % 1.1 Basophils % 0.7 Absolute Neutrophils 5.5 Absolute Lymphocytes 1.6 Absolute Monocytes 0.4 Absolute Eosinophils 0.1 Absolute Basophils 0.1 Sodium 140.7 Potassium 4.0 Chloride 99 Carbon Dioxide 37 H Anion Gap 5 BUN 15 Creatinine 0.82 Est GFR ( Amer) > 60 Est GFR (Non-Af Amer) > 60 Glucose 105 Calcium 8.8 Phosphorus 4.3 Magnesium 1.9 06/30/17 06:00 NT-Pro-B Natriuret Pep 544 Impressions: KUB X-Ray 06/24/17 10:17 IMPRESSION: Distal OG tube appears to be in good position. Chest X-Ray 06/30/17 00:00 IMPRESSION: No acute findings in the chest. Chest/Abdomen CTA 07/01/17 00:00 IMPRESSION: Medial segment right middle lobe lung consolidation worrisome for a small focus of pneumonia. Probable reactive mediastinal adenopathy Heavily calcified aortic valve with thickened left ventricular myocardium and mild dilatation of the ascending thoracic aorta. Findings worrisome for aortic stenosis Status: Imported from PACS Assessment & Plan - Diagnosis (1) Acute on chronic respiratory failure with hypoxia and hypercapnia Is this a current diagnosis for this admission?: Yes Plan: Improving. Pulmonology consulted. Recommend using BiPAP overnight, and when napping during the day. When not on BIPAP she is using supplemental oxygen. Started on her home dose of Pulmicort, and is receiving around the clock DuoNebs , ans well as PRN Xopenex. Bedside pulmonary function test was completed last night, 49% improvement after treatment (2) COPD exacerbation Is this a current diagnosis for this admission?: Yes Plan: Continue with bronchodilators and inhaled corticosteroids. BiPAP as overnight and when napping during the day. Started Pulmicort yesterday, patient states she feels better after treatment. (3) Chronic respiratory acidosis Is this a current diagnosis for this admission?: Yes Plan: CO2 is less than 40 today. No evidence of acidosis. Patient is a chronic CO2 retainer, as a result the patient needs BiPAP overnight and during the day when napping. Otherwise she will become hypercapnic and experience a recurrent episodes of respiratory failure and require hospitalization again (4) Hypertension QualifierTitle: Hypertension type: essential hypertension Qualified Code( s): I10 - Essential (primary) hypertension Is this a current diagnosis for this admission?: Yes Plan: Controlled. Continue with amlodipine as well as lisinopril and make further adjustments as needed. (5) Metabolic encephalopathy Plan: Secondary to acute illness. Patient has returned to her baseline mental status. - Time Time Spent with patient: 25-34 minutes Anticipated discharge: Home, Other - with bipap Within: within 48 hours - Inpatient Certification Based on my medical assessment, after consideration of the patient's comorbidities, presenting symptoms, or acuity I expect that the services needed warrant INPATIENT care.: Yes I certify that my determination is in accordance with my understanding of Medicare's requirements for reasonable and necessary INPATIENT services [42 CFR 412.3e].: Yes Medical Necessity: Need for Nebulizer Therapy and Monitoring of Response - Plan Summary Plan Summary: This patient will either get discharged from [facility] to a pulmonary rehab or she will go home with BIPAP. Daughter who lives with patient states she is comfortable with either option. <MILAD SPANN - Last Filed: 07/14/17 17:22> Subjective Reason For Visit: ACUTE RESPIRATORY FAILURE WITH HYPERCARBIA Physical Exam Vital Signs: Temp Pulse Resp BP Pulse Ox 98.6 F 67 12 141/57 H 96 07/11/17 16:00 07/11/17 16:00 07/11/17 16:00 07/11/17 16:00 07/11/17 16:00 Results Laboratory Results: 07/10/17 07:40 07/11/17 07:38 06/30/17 06:00 NT-Pro-B Natriuret Pep 544 Impressions: KUB X-Ray 06/24/17 10:17 IMPRESSION: Distal OG tube appears to be in good position. Chest X-Ray 06/30/17 00:00 IMPRESSION: No acute findings in the chest. Chest/Abdomen CTA 07/01/17 00:00 IMPRESSION: Medial segment right middle lobe lung consolidation worrisome for a small focus of pneumonia. Probable reactive mediastinal adenopathy Heavily calcified aortic valve with thickened left ventricular myocardium and mild dilatation of the ascending thoracic aorta. Findings worrisome for aortic stenosis Assessment & Plan - Plan Summary Plan Summary: Pt seen, examined, and chart reviewed. Agree with documentation.
[2017-07-10] MEDS: MONTELUKAST SODIUM 10 MG TABLET PO SCH (22:10)
[2017-07-10] MEDS: ATORVASTATIN CALCIUM 10 MG TABLET PO SCH (22:10)
[2017-07-11] MEDS: NORMAL SALINE INJ/PF 0.9% 10 ML SDV IV SCH ×2 (05:32→14:57)
[2017-07-11 08:07] LABS: ALANINE AMINOTRANSFERASE 65 U/L (9-52); ALBUMIN 3.8 g/dL (3.5-5.0); ALKALINE PHOSPHATASE 56 U/L (38-126); ANION GAP 9 (5-19); ASPARTATE AMINO TRANSFERASE 15 U/L (14-36); BILIRUBIN,DIRECT 0.1 mg/dL (0.0-0.4); BILIRUBIN,TOTAL 0.7 mg/dL (0.2-1.3); BLOOD UREA NITROGEN 18 mg/dL (7-20); CALCIUM 9.5 mg/dL (8.4-10.2); CARBON DIOXIDE 35 mmol/L (22-30); CHLORIDE 97 mmol/L (98-107); GLUCOSE 89 mg/dL (75-110); POTASSIUM 4.3 mmol/L (3.6-5.0); SODIUM 140.9 mmol/L (137-145); TOTAL PROTEIN 6.3 g/dL (6.3-8.2)
[2017-07-11] MEDS: IPRATROPIUM/ALBUTEROL 0.5-2.5 MG/3 ML AMPUL NEB SCH ×2 (08:43→14:09)
[2017-07-11] MEDS: BUDESONIDE NEB 0.5 MG/2 ML AMPUL NEB SCH (08:43)
[2017-07-11] MEDS: FLUTICASONE NASAL SPRAY 50 MCG/SPRY 120 SPRAY/16 GM NASL SCH (09:49)
[2017-07-11] MEDS: PREDNISONE 20 MG TABLET PO SCH (09:49)
[2017-07-11] MEDS: ENOXAPARIN SODIUM INJ 40 MG/0.4 ML DISP.SYRIN SUBCUT SCH (09:50)
[2017-07-11] MEDS: LISINOPRIL 10 MG TABLET PO SCH (09:53)
[2017-07-11] MEDS: AMLODIPINE BESYLATE 5 MG TABLET PO SCH (09:55)
[2017-07-11] MEDS: NYSTATIN/DEXAMETH/DIPHEN SUSP 120 ML PO SCH ×2 (10:00→14:57)
--- NOTE | 2017-07-11 12:55 | PDOC PROGRESS REPORT ---
Subjective Progress Note for:: 07/11/17 Subjective:: 2L home o2 chronic resp failure Continues to complain of dyspnea with minimal exertion Reason For Visit: ACUTE RESPIRATORY FAILURE WITH HYPERCARBIA Physical Exam Vital Signs: Temp Pulse Resp BP Pulse Ox 98.6 F 57 L 18 131/53 H 100 07/11/17 11:23 07/11/17 11:23 07/11/17 11:23 07/11/17 11:23 07/11/17 11:23 Intake & Output 07/10/17 07/11/17 07/12/17 06:59 06:59 06:59 Intake Total 480 570 Balance 480 570 Weight 99.1 kg General appearance: PRESENT: cooperative, disheveled, mild distress, obese Head exam: PRESENT: atraumatic, normocephalic Eye exam: PRESENT: conjunctiva pale, EOMI. ABSENT: nystagmus Mouth exam: PRESENT: dry mucosa, neck supple, tongue midline Neck exam: ABSENT: carotid bruit, JVD, lymphadenopathy, thyromegaly, tracheal deviation, tracheostomy Respiratory exam: PRESENT: decreased breath sounds, prolonged expiratory phas, rhonchi, symmetrical, unlabored, wheezes - Bilateral Cardiovascular exam: PRESENT: RRR, +S1 Pulses: PRESENT: normal radial pulses GI/Abdominal exam: PRESENT: diminished bowel sounds, soft Extremities exam: PRESENT: full ROM. ABSENT: clubbing Musculoskeletal exam: PRESENT: deformity, dislocation. ABSENT: full ROM Neurological exam: PRESENT: alert, awake Skin exam: PRESENT: dry, warm Results Laboratory Results: 07/10/17 07:40 07/11/17 07:38 07/11/17 07:38 Sodium 140.9 Potassium 4.3 Chloride 97 L Carbon Dioxide 35 H Anion Gap 9 BUN 18 Creatinine 0.88 Est GFR ( Amer) > 60 Est GFR (Non-Af Amer) > 60 Glucose 89 Calcium 9.5 Total Bilirubin 0.7 AST 15 ALT 65 H Alkaline Phosphatase 56 Total Protein 6.3 Albumin 3.8 06/30/17 06:00 NT-Pro-B Natriuret Pep 544 Impressions: KUB X-Ray 06/24/17 10:17 IMPRESSION: Distal OG tube appears to be in good position. Chest X-Ray 06/30/17 00:00 IMPRESSION: No acute findings in the chest. Chest/Abdomen CTA 07/01/17 00:00 IMPRESSION: Medial segment right middle lobe lung consolidation worrisome for a small focus of pneumonia. Probable reactive mediastinal adenopathy Heavily calcified aortic valve with thickened left ventricular myocardium and mild dilatation of the ascending thoracic aorta. Findings worrisome for aortic stenosis Assessment & Plan - Diagnosis (1) Acute on chronic respiratory failure with hypoxia and hypercapnia Is this a current diagnosis for this admission?: Yes Plan: The above patient has failed BiPAP. This patient would benefit from noninvasive mechanical ventilation via the trilogy AVAPS/AE and faster responding AVAPS rates. The trilogy is able to provide a target tidal volume and also adjusting the EPAP pressures to maintain a patent airway as well as an oral backup rate this machine will help improve PaCO2 levels. The severity of the patient's condition will lead to future hospitalizations and readmissions as well as life-threatening situations without the use of this device trilogy home vent needed for hypercapnic respiratory failure. [facility] for trilogy set up. (2) Anemia Is this a current diagnosis for this admission?: Yes (3) COPD exacerbation Is this a current diagnosis for this admission?: Yes Plan: Continue dyspnea patient probably at or near baseline
[2017-07-11 15:33] VITALS: BP 141/57
--- NOTE | 2017-07-17 17:10 | Pulmonary Function Test ---
Pulmonary Function Test Date of Procedure:: 07/09/17 INDICATION:: Dyspnea Referring Provider: Dr. Bolanos - Report Spirometry: FVC 0.82 L 26% postbronchodilator 1.21 L 36% FEV1 0.40 L 16% postbronchodilator 0.51 L 20% FEV1/FVC%49 postbronchodilator 42 predicted 77 FEF 25-75% 0.37 14% postbronchodilator 0.28 11% Impression: Severe obstructive ventilatory defect with insignificant response to bronchodilator therapy. This in and of itself does not preclude a clinical trial of bronchodilator therapy
--- NOTE | 2017-07-22 18:40 | PDOC CONSULTATION ---
Consultation Consult Date: 06/24/17 Attending physician:: SOCRATES WILKERSON Consult reason:: resp failure History of Present Illness Admission Date/PCP: 06/24/17 12:47 JUANA MACK MD History of Present Illness: GIACOMO CARRILLO is a 66 year old [place] female who presented to the emergency department with significant respiratory distress. At the time of presentation to the emergency department she was apparently oxygenating at 54% on room air. The patient was initially started on BiPAP and her oxygen saturations improved into the 80s. There is no evidence of pneumonia although the patient was noted to have cold-like symptoms at that time. Patient eventually became hypercapnic and hypoxic to the point that she was intubated. She was treated with mechanical ventilation as well as steroids and nebulizers. There has never been evidence of an infectious process. She was successfully extubated on June 26, 2017 however she remains chronically hypercapnic however not acidotic and her mental status is at baseline. Pulmonology has been consulted. Past Medical History Cardiac Medical History: Reports: Hyperlipidema, Hypertension Pulmonary Medical History: Reports: Asthma, Chronic Obstructive Pulmonary Disease (COPD), Sleep Apnea Past Surgical History Past Surgical History: Reports: Cholecystectomy, Orthopedic Surgery - left ankle , Tonsillectomy Social History Information Source: [facility] Records Lives with: Family Smoking Status: Never Smoker Drugs: None Hx Prescription Drug Abuse: No - Advance Directive Resuscitation Status: Full Code Family History Parental Family History Reviewed: No Children Family History Reviewed: No Sibling(s) Family History Reviewed.: No Medication/Allergy Home Medications: Amlodipine Besylate [Norvasc 5 mg Tablet] 5 mg PO DAILY 06/24/17 Diclofenac Sodium [Voltaren] 1 applic TOP BID 06/24/17 Fluticasone Propionate [Flonase Nasal Dows 50 Mcg/Dows 16 gm] 2 sprays NASL DAILY 06/24/17 Lisinopril [Prinivil] 20 mg PO DAILY 06/24/17 Montelukast Sodium [Singulair 10 mg Tablet] 10 mg PO QHS 06/24/17 Pravastatin Sodium [Pravachol] 40 mg PO QHS 06/24/17 Tizanidine HCl [Zanaflex 4 mg Tablet] 4 mg PO Q6HP PRN 06/24/17 Budesonide [Pulmicort Neb 0.5 mg/2 ml Ampul] 0.5 mg NEB RTQ12 #5 ampul.neb 07/11 Ipratropium/Albuterol Sulfate [Duoneb 3 ml Ampul] 3 ml NEB Q6 PRN #5 vial.neb Levalbuterol HCl [Xopenex Neb 1.25 mg/3 ml Ampul] 1.25 mg NEB Q6 PRN #5 vial.neb 07/11/17 Allergies/Adverse Reactions: fluticasone [From Advair Diskus] Adverse Reaction (Verified 06/21/17 02:25) salmeterol [From Advair Diskus] Adverse Reaction (Verified 06/21/17 02:25) Review of Systems ROS unobtainable: Due to endotracheal tube Physical Exam Vital Signs: Temp Pulse Resp BP Pulse Ox 99.1 F 73 22 H 124/70 99 06/25/17 08:00 06/25/17 08:00 06/25/17 08:00 06/25/17 08:00 06/25/17 08:00 Intake & Output 06/24/17 06/25/17 06/26/17 06:59 06:59 06:59 Intake Total 2282 Output Total 500 100 Balance 1782 -100 Weight 98.9 kg General appearance: PRESENT: no acute distress, disheveled, well-developed. ABSENT: cooperative Head exam: PRESENT: atraumatic, normocephalic Eye exam: PRESENT: conjunctiva pale. ABSENT: nystagmus, periorbital swelling, scleral icterus Mouth exam: PRESENT: dry mucosa, neck supple, tongue midline, other - et tube Neck exam: ABSENT: carotid bruit, JVD, lymphadenopathy, thyromegaly, tracheal deviation, tracheostomy Respiratory exam: PRESENT: decreased breath sounds, prolonged expiratory phas, rhonchi, symmetrical, unlabored, wheezes. ABSENT: rales, retraction, stridor Cardiovascular exam: PRESENT: RRR, +S1, +S2 Pulses: PRESENT: normal radial pulses GI/Abdominal exam: PRESENT: diminished bowel sounds, soft Gentrourinary exam: PRESENT: indwelling catheter Extremities exam: ABSENT: calf tenderness, clubbing Musculoskeletal exam: ABSENT: deformity, dislocation Neurological exam: ABSENT: alert, awake, oriented to person Skin exam: PRESENT: dry, warm Results Laboratory Results: 06/25/17 05:42 06/25/17 05:42 06/24/17 06/24/17 06/25/17 16:00 18:30 05:42 WBC 3.2 L RBC 4.10 Hgb 11.3 L D Hct 34.6 L MCV 84 MCH 27.5 MCHC 32.6 RDW 15.5 H Plt Count 200 Seg Neutrophils % 69.7 Lymphocytes % 17.4 Monocytes % 12.8 Eosinophils % 0.0 Basophils % 0.1 Absolute Neutrophils 2.2 Absolute Lymphocytes 0.6 Absolute Monocytes 0.4 Absolute Eosinophils 0.0 Absolute Basophils 0.0 Carbonic Acid 2.02 H 1.65 H HCO3/H2CO3 Ratio 13:1 15:1 ABG pH 7.22 L 7.30 L ABG pCO2 67.0 H 54.7 H ABG pO2 85.4 150.4 H ABG HCO3 26.6 H 26.2 H ABG O2 Saturation 94.1 98.7 H ABG Base Excess -2.5 -1.0 FiO2 50% 50% Sodium Potassium Chloride Carbon Dioxide Anion Gap BUN Creatinine Est GFR ( Amer) Est GFR (Non-Af Amer) Glucose Calcium Phosphorus Magnesium Total Bilirubin AST ALT Alkaline Phosphatase Total Protein Albumin 06/25/17 06/25/17 05:42 05:42 WBC RBC Hgb Hct MCV MCH MCHC RDW Plt Count Seg Neutrophils % Lymphocytes % Monocytes % Eosinophils % Basophils % Absolute Neutrophils Absolute Lymphocytes Absolute Monocytes Absolute Eosinophils Absolute Basophils Carbonic Acid 1.25 HCO3/H2CO3 Ratio 18:1 ABG pH 7.37 ABG pCO2 41.6 ABG pO2 119.1 H ABG HCO3 23.3 ABG O2 Saturation 98.2 H ABG Base Excess -2.0 FiO2 50% Sodium 142.2 Potassium 4.4 Chloride 109 H Carbon Dioxide 25 Anion Gap 8 BUN 24 H Creatinine 1.18 Est GFR ( Amer) 55 L Est GFR (Non-Af Amer) 46 L Glucose 97 Calcium 7.7 L Phosphorus 3.5 Magnesium 2.1 Total Bilirubin 0.3 AST 43 H ALT 115 H Alkaline Phosphatase 58 Total Protein 5.5 L Albumin 3.3 L Impressions: KUB X-Ray 06/24/17 10:17 IMPRESSION: Distal OG tube appears to be in good position. Assessment & Plan - Diagnosis (1) Acute and chronic respiratory failure Qualifiers: Respiratory failure complication: hypoxia and hypercapnia Qualified Code(s) : J96.21 - Acute and chronic respiratory failure with hypoxia; J96.22 - Acute and chronic respiratory failure with hypercapnia; J96.22 - Acute and chronic respiratory failure with hypercapnia; J96.22 - Acute and chronic respiratory failure with hypercapnia Is this a current diagnosis for this admission?: Yes Plan: continue vent support (2) Elevated LFTs Is this a current diagnosis for this admission?: Yes Plan: boderline will follow (3) Obesity (BMI 30-39.9) Is this a current diagnosis for this admission?: Yes - Time Total Critical Time (Minutes): 50
--- NOTE | 2017-07-22 18:46 | PDOC PROGRESS REPORT ---
Subjective Progress Note for:: 06/25/17 Subjective:: 2L home o2 chronic resp failure cpap Reason For Visit: ACUTE RESPIRATORY FAILURE WITH HYPERCARBIA Physical Exam Vital Signs: Temp Pulse Resp BP Pulse Ox 99.1 F 73 22 H 124/70 99 06/25/17 08:00 06/25/17 08:00 06/25/17 08:00 06/25/17 08:00 06/25/17 08:00 Intake & Output 06/24/17 06/25/17 06/26/17 06:59 06:59 06:59 Intake Total 2282 Output Total 500 100 Balance 1782 -100 Weight 98.9 kg General appearance: PRESENT: no acute distress, disheveled, obese, well- developed Head exam: PRESENT: atraumatic, normocephalic Eye exam: PRESENT: conjunctiva pale. ABSENT: nystagmus, periorbital swelling, scleral icterus Mouth exam: PRESENT: dry mucosa, neck supple, tongue midline, other - ET tube Throat exam: PRESENT: tonsillogmegaly Neck exam: ABSENT: carotid bruit, JVD, lymphadenopathy, thyromegaly, tracheal deviation, tracheostomy Respiratory exam: PRESENT: decreased breath sounds, prolonged expiratory phas, rhonchi, symmetrical, unlabored Cardiovascular exam: PRESENT: RRR, +S1, +S2 Pulses: PRESENT: normal radial pulses GI/Abdominal exam: PRESENT: diminished bowel sounds, soft Extremities exam: ABSENT: calf tenderness, clubbing Musculoskeletal exam: ABSENT: deformity, dislocation Neurological exam: ABSENT: alert, awake, oriented to person Skin exam: PRESENT: dry, warm Results Laboratory Results: 06/25/17 05:42 06/25/17 05:42 06/24/17 06/24/17 06/25/17 16:00 18:30 05:42 WBC 3.2 L RBC 4.10 Hgb 11.3 L D Hct 34.6 L MCV 84 MCH 27.5 MCHC 32.6 RDW 15.5 H Plt Count 200 Seg Neutrophils % 69.7 Lymphocytes % 17.4 Monocytes % 12.8 Eosinophils % 0.0 Basophils % 0.1 Absolute Neutrophils 2.2 Absolute Lymphocytes 0.6 Absolute Monocytes 0.4 Absolute Eosinophils 0.0 Absolute Basophils 0.0 Carbonic Acid 2.02 H 1.65 H HCO3/H2CO3 Ratio 13:1 15:1 ABG pH 7.22 L 7.30 L ABG pCO2 67.0 H 54.7 H ABG pO2 85.4 150.4 H ABG HCO3 26.6 H 26.2 H ABG O2 Saturation 94.1 98.7 H ABG Base Excess -2.5 -1.0 FiO2 50% 50% Sodium Potassium Chloride Carbon Dioxide Anion Gap BUN Creatinine Est GFR ( Amer) Est GFR (Non-Af Amer) Glucose Calcium Phosphorus Magnesium Total Bilirubin AST ALT Alkaline Phosphatase Total Protein Albumin 06/25/17 06/25/17 05:42 05:42 WBC RBC Hgb Hct MCV MCH MCHC RDW Plt Count Seg Neutrophils % Lymphocytes % Monocytes % Eosinophils % Basophils % Absolute Neutrophils Absolute Lymphocytes Absolute Monocytes Absolute Eosinophils Absolute Basophils Carbonic Acid 1.25 HCO3/H2CO3 Ratio 18:1 ABG pH 7.37 ABG pCO2 41.6 ABG pO2 119.1 H ABG HCO3 23.3 ABG O2 Saturation 98.2 H ABG Base Excess -2.0 FiO2 50% Sodium 142.2 Potassium 4.4 Chloride 109 H Carbon Dioxide 25 Anion Gap 8 BUN 24 H Creatinine 1.18 Est GFR ( Amer) 55 L Est GFR (Non-Af Amer) 46 L Glucose 97 Calcium 7.7 L Phosphorus 3.5 Magnesium 2.1 Total Bilirubin 0.3 AST 43 H ALT 115 H Alkaline Phosphatase 58 Total Protein 5.5 L Albumin 3.3 L Impressions: KUB X-Ray 06/24/17 10:17 IMPRESSION: Distal OG tube appears to be in good position. Assessment & Plan - Diagnosis (1) Acute on chronic respiratory failure with hypoxia and hypercapnia Is this a current diagnosis for this admission?: Yes Plan: The above patient has failed BiPAP. This patient would benefit from noninvasive mechanical ventilation via the trilogy AVAPS/AE and faster responding AVAPS rates. The trilogy is able to provide a target tidal volume and also adjusting the EPAP pressures to maintain a patent airway as well as an oral backup rate this machine will help improve PaCO2 levels. The severity of the patient's condition will lead to future hospitalizations and readmissions as well as life-threatening situations without the use of this device trilogy home vent needed for hypercapnic respiratory failure. [facility] or [facility] [place] to follow for trilogy set up. (2) Elevated LFTs Is this a current diagnosis for this admission?: Yes Plan: boderline will follow (3) Obesity (BMI 30-39.9) Is this a current diagnosis for this admission?: Yes - Time Total Critical Time (Minutes): 35
--- NOTE | 2017-07-22 18:52 | PDOC PROGRESS REPORT ---
Subjective Progress Note for:: 06/26/17 Subjective:: 2L home o2 chronic resp failure extubate to bi-pap Reason For Visit: ACUTE RESPIRATORY FAILURE WITH HYPERCARBIA Physical Exam Vital Signs: Temp Pulse Resp BP Pulse Ox 96.8 F L 58 L 22 H 138/68 H 97 06/26/17 05:08 06/26/17 04:13 06/26/17 06:40 06/26/17 06:40 06/26/17 06:40 Intake & Output 06/25/17 06/26/17 06/27/17 06:59 06:59 06:59 Intake Total 2282 3371 Output Total 500 1750 130 Balance 1782 1621 -130 Weight 98.9 kg 100.3 kg General appearance: PRESENT: no acute distress, disheveled, obese Head exam: PRESENT: atraumatic, normocephalic Eye exam: PRESENT: conjunctiva pale. ABSENT: nystagmus, periorbital swelling, scleral icterus Mouth exam: PRESENT: dry mucosa, neck supple, tongue midline, other - et TUbe Neck exam: ABSENT: carotid bruit, JVD, lymphadenopathy, thyromegaly, tracheal deviation, tracheostomy Respiratory exam: PRESENT: decreased breath sounds, prolonged expiratory phas, rhonchi, symmetrical, unlabored, wheezes. ABSENT: retraction, stridor Cardiovascular exam: PRESENT: RRR, +S1, +S2 Pulses: PRESENT: normal radial pulses, normal dorsalis pedis pul GI/Abdominal exam: PRESENT: diminished bowel sounds, soft Extremities exam: ABSENT: calf tenderness, clubbing Musculoskeletal exam: ABSENT: deformity, dislocation Neurological exam: ABSENT: alert, awake, oriented to person Skin exam: PRESENT: dry, warm Results Laboratory Results: 06/26/17 05:25 06/26/17 05:25 06/26/17 06/26/17 06/26/17 05:25 05:25 05:25 WBC 3.9 L RBC 4.06 Hgb 11.3 L Hct 34.2 L MCV 84 MCH 27.8 MCHC 33.0 RDW 15.4 H Plt Count 184 Seg Neutrophils % 83.2 H Lymphocytes % 11.6 L Monocytes % 5.0 Eosinophils % 0.1 Basophils % 0.1 Absolute Neutrophils 3.3 Absolute Lymphocytes 0.5 Absolute Monocytes 0.2 Absolute Eosinophils 0.0 Absolute Basophils 0.0 Carbonic Acid 1.19 HCO3/H2CO3 Ratio 20:1 ABG pH 7.40 ABG pCO2 39.5 ABG pO2 70.3 L ABG HCO3 23.9 ABG O2 Saturation 94.2 ABG Base Excess -0.7 FiO2 30 Sodium 141.8 Potassium 4.3 Chloride 111 H Carbon Dioxide 22 Anion Gap 9 BUN 19 Creatinine 0.96 Est GFR ( Amer) > 60 Est GFR (Non-Af Amer) 58 L Glucose 134 H Calcium 8.3 L Phosphorus 3.0 Magnesium 2.3 Total Bilirubin 0.4 AST 22 ALT 86 H Alkaline Phosphatase 54 Total Protein 5.5 L Albumin 3.2 L Impressions: KUB X-Ray 06/24/17 10:17 IMPRESSION: Distal OG tube appears to be in good position. Chest X-Ray 06/26/17 06:00 IMPRESSION: 1. No significant interval change. Assessment & Plan - Diagnosis (1) Acute and chronic respiratory failure Qualifiers: Respiratory failure complication: hypoxia and hypercapnia Qualified Code(s) : J96.21 - Acute and chronic respiratory failure with hypoxia; J96.22 - Acute and chronic respiratory failure with hypercapnia; J96.22 - Acute and chronic respiratory failure with hypercapnia; J96.22 - Acute and chronic respiratory failure with hypercapnia Is this a current diagnosis for this admission?: Yes Plan: continue vent support (2) Elevated LFTs Is this a current diagnosis for this admission?: Yes Plan: boderline will follow (3) Metabolic encephalopathy Is this a current diagnosis for this admission?: Yes (4) Obesity (BMI 30-39.9) Is this a current diagnosis for this admission?: Yes Plan: unchanged
--- NOTE | 2017-07-22 19:02 | PDOC PROGRESS REPORT ---
Subjective Progress Note for:: 06/30/17 Subjective:: 2L home o2 chronic resp failure extubate to bi-pap Reason For Visit: ACUTE RESPIRATORY FAILURE WITH HYPERCARBIA Physical Exam Vital Signs: Temp Pulse Resp BP Pulse Ox 98.4 F 52 L 18 112/62 99 06/30/17 11:36 06/30/17 11:36 06/30/17 11:36 06/30/17 11:36 06/30/17 11:36 Intake & Output 06/29/17 06/30/17 07/01/17 06:59 06:59 06:59 Intake Total 830 1413 Output Total 400 1100 Balance 430 313 Weight 96.2 kg General appearance: PRESENT: no acute distress, cooperative, disheveled, obese Head exam: PRESENT: atraumatic, normocephalic Eye exam: PRESENT: conjunctiva pale, EOMI. ABSENT: nystagmus, periorbital swelling Mouth exam: PRESENT: dry mucosa, neck supple, tongue midline Neck exam: ABSENT: carotid bruit, JVD, lymphadenopathy, thyromegaly, tracheal deviation, tracheostomy Respiratory exam: PRESENT: crackles, decreased breath sounds, prolonged expiratory phas, rhonchi, symmetrical, unlabored. ABSENT: retraction, stridor Cardiovascular exam: PRESENT: irregular rhythm Pulses: PRESENT: normal radial pulses GI/Abdominal exam: PRESENT: diminished bowel sounds, soft Extremities exam: ABSENT: calf tenderness, clubbing Musculoskeletal exam: ABSENT: deformity, dislocation Neurological exam: PRESENT: awake Skin exam: PRESENT: dry, warm Results Laboratory Results: 06/30/17 06:00 06/30/17 12:10 06/30/17 06/30/17 06/30/17 06:00 06:00 12:10 WBC 7.9 RBC 4.08 Hgb 11.2 L Hct 34.1 L MCV 84 MCH 27.5 MCHC 32.9 RDW 14.5 H Plt Count 233 Sodium 141.2 138.8 Potassium 4.1 4.0 Chloride 96 L 95 L Carbon Dioxide 41 H* 40 H* Anion Gap 4 L 4 L BUN 27 H 25 H Creatinine 0.95 0.86 Est GFR ( Amer) > 60 > 60 Est GFR (Non-Af Amer) 58 L > 60 Glucose 88 109 Calcium 8.6 8.9 Magnesium 2.2 06/24/17 14:14 Blood Blood Culture - Final NO GROWTH IN 5 DAYS 06/24/17 12:48 Blood Blood Culture - Final NO GROWTH IN 5 DAYS 06/30/17 06:00 NT-Pro-B Natriuret Pep 544 Impressions: KUB X-Ray 06/24/17 10:17 IMPRESSION: Distal OG tube appears to be in good position. Chest X-Ray 06/27/17 06:00 IMPRESSION: 1. Interval removal of endotracheal and NG tube. Otherwise stable appearance of the chest. Assessment & Plan - Diagnosis (1) Acute on chronic respiratory failure with hypoxia and hypercapnia Is this a current diagnosis for this admission?: Yes Plan: The above patient has failed BiPAP. This patient would benefit from noninvasive mechanical ventilation via the trilogy AVAPS/AE and faster responding AVAPS rates. The trilogy is able to provide a target tidal volume and also adjusting the EPAP pressures to maintain a patent airway as well as an oral backup rate this machine will help improve PaCO2 levels. The severity of the patient's condition will lead to future hospitalizations and readmissions as well as life-threatening situations without the use of this device trilogy home vent needed for hypercapnic respiratory failure. [facility] or [facility] [place] to follow for trilogy set up. (2) COPD exacerbation Is this a current diagnosis for this admission?: Yes Plan: Continue dyspnea patient probably at or near baseline (3) Elevated LFTs Is this a current diagnosis for this admission?: Yes Plan: stable (4) Obesity (BMI 30-39.9) Is this a current diagnosis for this admission?: Yes Plan: unchanged
--- NOTE | 2017-07-22 19:06 | PDOC PROGRESS REPORT ---
Subjective Progress Note for:: 07/01/17 Subjective:: 2L home o2 chronic resp failure extubate to bi-pap Reason For Visit: ACUTE RESPIRATORY FAILURE WITH HYPERCARBIA Physical Exam Vital Signs: Temp Pulse Resp BP Pulse Ox 97.4 F 54 L 18 164/60 H 97 07/03/17 07:57 07/03/17 07:57 07/03/17 07:57 07/03/17 07:57 07/03/17 07:57 Intake & Output 07/02/17 07/03/17 07/04/17 06:59 06:59 06:59 Intake Total 890 310 Output Total 975 400 Balance -85 -90 General appearance: PRESENT: no acute distress, disheveled, obese Head exam: PRESENT: atraumatic, normocephalic Eye exam: PRESENT: conjunctiva pale, EOMI Mouth exam: PRESENT: dry mucosa, neck supple, tongue midline Neck exam: ABSENT: carotid bruit, JVD, lymphadenopathy, thyromegaly, tracheal deviation, tracheostomy Respiratory exam: PRESENT: crackles, decreased breath sounds, prolonged expiratory phas, rhonchi, symmetrical, unlabored - on bipap. ABSENT: retraction Cardiovascular exam: PRESENT: RRR, +S1, +S2 Pulses: PRESENT: normal radial pulses GI/Abdominal exam: PRESENT: diminished bowel sounds, soft Extremities exam: ABSENT: calf tenderness, clubbing Musculoskeletal exam: ABSENT: deformity, dislocation Neurological exam: PRESENT: alert, awake Psychiatric exam: PRESENT: flat affect Skin exam: PRESENT: dry, warm Results Laboratory Results: 07/02/17 05:46 07/02/17 05:46 06/30/17 06:00 NT-Pro-B Natriuret Pep 544 Impressions: KUB X-Ray 06/24/17 10:17 IMPRESSION: Distal OG tube appears to be in good position. Chest X-Ray 06/30/17 00:00 IMPRESSION: No acute findings in the chest. Chest/Abdomen CTA 07/01/17 00:00 IMPRESSION: Medial segment right middle lobe lung consolidation worrisome for a small focus of pneumonia. Probable reactive mediastinal adenopathy Heavily calcified aortic valve with thickened left ventricular myocardium and mild dilatation of the ascending thoracic aorta. Findings worrisome for aortic stenosis Assessment & Plan - Diagnosis (1) Acute on chronic respiratory failure with hypoxia and hypercapnia Is this a current diagnosis for this admission?: Yes Plan: The above patient has failed BiPAP. This patient would benefit from noninvasive mechanical ventilation via the trilogy AVAPS/AE and faster responding AVAPS rates. The trilogy is able to provide a target tidal volume and also adjusting the EPAP pressures to maintain a patent airway as well as an oral backup rate this machine will help improve PaCO2 levels. The severity of the patient's condition will lead to future hospitalizations and readmissions as well as life-threatening situations without the use of this device trilogy home vent needed for hypercapnic respiratory failure. [facility] or [facility] [place] to follow for trilogy set up. (2) Obesity (BMI 30-39.9) Is this a current diagnosis for this admission?: Yes Plan: unchanged (3) COPD exacerbation Is this a current diagnosis for this admission?: Yes Plan: Continue dyspnea patient probably at or near baseline
--- NOTE | 2017-07-22 20:06 | PDOC PROGRESS REPORT ---
Subjective Progress Note for:: 07/02/17 Subjective:: 2L home o2 chronic resp failure extubate to bi-pap Reason For Visit: ACUTE RESPIRATORY FAILURE WITH HYPERCARBIA Physical Exam Vital Signs: Temp Pulse Resp BP Pulse Ox 97.4 F 54 L 18 164/60 H 97 07/03/17 07:57 07/03/17 07:57 07/03/17 07:57 07/03/17 07:57 07/03/17 07:57 Intake & Output 07/02/17 07/03/17 07/04/17 06:59 06:59 06:59 Intake Total 890 310 Output Total 975 400 Balance -85 -90 General appearance: PRESENT: no acute distress, disheveled, obese Head exam: PRESENT: atraumatic, normocephalic Eye exam: PRESENT: conjunctiva pale, EOMI. ABSENT: nystagmus, periorbital swelling, scleral icterus Mouth exam: PRESENT: dry mucosa, neck supple, tongue midline Neck exam: ABSENT: carotid bruit, JVD, lymphadenopathy, thyromegaly, tracheal deviation, tracheostomy Respiratory exam: PRESENT: decreased breath sounds, prolonged expiratory phas, rhonchi, symmetrical, unlabored, wheezes. ABSENT: retraction, stridor, tachypnea Cardiovascular exam: PRESENT: RRR, +S1, +S2 Pulses: PRESENT: normal radial pulses GI/Abdominal exam: PRESENT: diminished bowel sounds, soft Extremities exam: ABSENT: calf tenderness, clubbing Musculoskeletal exam: ABSENT: deformity, dislocation Neurological exam: PRESENT: alert, awake Psychiatric exam: PRESENT: flat affect Skin exam: PRESENT: dry, warm Results Laboratory Results: 07/02/17 05:46 07/02/17 05:46 06/30/17 06:00 NT-Pro-B Natriuret Pep 544 Impressions: KUB X-Ray 06/24/17 10:17 IMPRESSION: Distal OG tube appears to be in good position. Chest X-Ray 06/30/17 00:00 IMPRESSION: No acute findings in the chest. Chest/Abdomen CTA 07/01/17 00:00 IMPRESSION: Medial segment right middle lobe lung consolidation worrisome for a small focus of pneumonia. Probable reactive mediastinal adenopathy Heavily calcified aortic valve with thickened left ventricular myocardium and mild dilatation of the ascending thoracic aorta. Findings worrisome for aortic stenosis Assessment & Plan - Diagnosis (1) Acute on chronic respiratory failure with hypoxia and hypercapnia Is this a current diagnosis for this admission?: Yes Plan: The above patient has failed BiPAP. This patient would benefit from noninvasive mechanical ventilation via the trilogy AVAPS/AE and faster responding AVAPS rates. The trilogy is able to provide a target tidal volume and also adjusting the EPAP pressures to maintain a patent airway as well as an oral backup rate this machine will help improve PaCO2 levels. The severity of the patient's condition will lead to future hospitalizations and readmissions as well as life-threatening situations without the use of this device trilogy home vent needed for hypercapnic respiratory failure[facility]. (2) COPD exacerbation Is this a current diagnosis for this admission?: Yes Plan: Continue dyspnea patient probably at or near baseline (3) Obesity (BMI 30-39.9) Is this a current diagnosis for this admission?: Yes Plan: unchanged
--- NOTE | 2017-07-22 20:10 | PDOC PROGRESS REPORT ---
Subjective Progress Note for:: 07/03/17 Subjective:: 2L home o2 chronic resp failure extubate to bi-pap Reason For Visit: ACUTE RESPIRATORY FAILURE WITH HYPERCARBIA Physical Exam Vital Signs: Temp Pulse Resp BP Pulse Ox 97.4 F 54 L 18 164/60 H 97 07/03/17 07:57 07/03/17 07:57 07/03/17 07:57 07/03/17 07:57 07/03/17 07:57 Intake & Output 07/02/17 07/03/17 07/04/17 06:59 06:59 06:59 Intake Total 890 310 Output Total 975 400 Balance -85 -90 General appearance: PRESENT: no acute distress, disheveled, obese Head exam: PRESENT: atraumatic, normocephalic Eye exam: PRESENT: conjunctiva pale, EOMI. ABSENT: nystagmus, periorbital swelling Mouth exam: PRESENT: dry mucosa, neck supple, tongue midline Neck exam: ABSENT: carotid bruit, JVD, lymphadenopathy, thyromegaly, tracheal deviation, tracheostomy Respiratory exam: PRESENT: decreased breath sounds, prolonged expiratory phas, rhonchi, symmetrical, unlabored, wheezes. ABSENT: retraction, stridor, tachypnea Cardiovascular exam: PRESENT: RRR, +S1, +S2 Pulses: PRESENT: normal radial pulses GI/Abdominal exam: PRESENT: diminished bowel sounds, soft Extremities exam: ABSENT: calf tenderness, clubbing Musculoskeletal exam: ABSENT: deformity, dislocation Neurological exam: PRESENT: awake Skin exam: PRESENT: dry, warm Results Laboratory Results: 07/02/17 05:46 07/02/17 05:46 06/30/17 06:00 NT-Pro-B Natriuret Pep 544 Impressions: KUB X-Ray 06/24/17 10:17 IMPRESSION: Distal OG tube appears to be in good position. Chest X-Ray 06/30/17 00:00 IMPRESSION: No acute findings in the chest. Chest/Abdomen CTA 07/01/17 00:00 IMPRESSION: Medial segment right middle lobe lung consolidation worrisome for a small focus of pneumonia. Probable reactive mediastinal adenopathy Heavily calcified aortic valve with thickened left ventricular myocardium and mild dilatation of the ascending thoracic aorta. Findings worrisome for aortic stenosis Assessment & Plan - Diagnosis (1) Acute on chronic respiratory failure with hypoxia and hypercapnia Is this a current diagnosis for this admission?: Yes Plan: The above patient has failed BiPAP. This patient would benefit from noninvasive mechanical ventilation via the trilogy AVAPS/AE and faster responding AVAPS rates. The trilogy is able to provide a target tidal volume and also adjusting the EPAP pressures to maintain a patent airway as well as an oral backup rate this machine will help improve PaCO2 levels. The severity of the patient's condition will lead to future hospitalizations and readmissions as well as life-threatening situations without the use of this device trilogy home vent needed for hypercapnic respiratory failure. [facility] or [facility] [place] to follow for trilogy set up. (2) COPD exacerbation Is this a current diagnosis for this admission?: Yes Plan: Continue dyspnea patient probably at or near baseline (3) Obesity (BMI 30-39.9) Is this a current diagnosis for this admission?: Yes Plan: unchanged
--- NOTE | 2017-07-22 20:13 | PDOC PROGRESS REPORT ---
Subjective Progress Note for:: 07/07/17 Subjective:: 2L home o2 chronic resp failure extubate to bi-pap Reason For Visit: ACUTE RESPIRATORY FAILURE WITH HYPERCARBIA Physical Exam Vital Signs: Temp Pulse Resp BP Pulse Ox 98.6 F 57 L 18 131/53 H 100 07/11/17 11:23 07/11/17 11:23 07/11/17 11:23 07/11/17 11:23 07/11/17 11:23 Intake & Output 07/10/17 07/11/17 07/12/17 06:59 06:59 06:59 Intake Total 480 570 Balance 480 570 Weight 99.1 kg General appearance: PRESENT: no acute distress, disheveled, obese, well- developed Head exam: PRESENT: atraumatic, normocephalic Eye exam: PRESENT: conjunctiva pale, EOMI. ABSENT: nystagmus, periorbital swelling, scleral icterus Mouth exam: PRESENT: moist, neck supple Neck exam: ABSENT: carotid bruit, JVD, lymphadenopathy, thyromegaly, tracheal deviation, tracheostomy Respiratory exam: PRESENT: crackles, decreased breath sounds, prolonged expiratory phas, rhonchi, symmetrical, unlabored, wheezes. ABSENT: rales, retraction, stridor Cardiovascular exam: PRESENT: RRR, +S1, +S2 Pulses: PRESENT: normal radial pulses GI/Abdominal exam: PRESENT: diminished bowel sounds, soft Extremities exam: ABSENT: calf tenderness, clubbing Musculoskeletal exam: ABSENT: deformity, dislocation Neurological exam: PRESENT: awake Psychiatric exam: PRESENT: normal mood Skin exam: PRESENT: dry, warm Results Laboratory Results: 07/10/17 07:40 07/11/17 07:38 07/11/17 07:38 Sodium 140.9 Potassium 4.3 Chloride 97 L Carbon Dioxide 35 H Anion Gap 9 BUN 18 Creatinine 0.88 Est GFR ( Amer) > 60 Est GFR (Non-Af Amer) > 60 Glucose 89 Calcium 9.5 Total Bilirubin 0.7 AST 15 ALT 65 H Alkaline Phosphatase 56 Total Protein 6.3 Albumin 3.8 06/30/17 06:00 NT-Pro-B Natriuret Pep 544 Impressions: KUB X-Ray 06/24/17 10:17 IMPRESSION: Distal OG tube appears to be in good position. Chest X-Ray 06/30/17 00:00 IMPRESSION: No acute findings in the chest. Chest/Abdomen CTA 07/01/17 00:00 IMPRESSION: Medial segment right middle lobe lung consolidation worrisome for a small focus of pneumonia. Probable reactive mediastinal adenopathy Heavily calcified aortic valve with thickened left ventricular myocardium and mild dilatation of the ascending thoracic aorta. Findings worrisome for aortic stenosis Assessment & Plan - Diagnosis (1) Acute on chronic respiratory failure with hypoxia and hypercapnia Is this a current diagnosis for this admission?: Yes Plan: The above patient has failed BiPAP. This patient would benefit from noninvasive mechanical ventilation via the trilogy AVAPS/AE and faster responding AVAPS rates. The trilogy is able to provide a target tidal volume and also adjusting the EPAP pressures to maintain a patent airway as well as an oral backup rate this machine will help improve PaCO2 levels. The severity of the patient's condition will lead to future hospitalizations and readmissions as well as life-threatening situations without the use of this device trilogy home vent needed for hypercapnic respiratory failure. [facility] or [facility] [place] to follow for trilogy set up. (2) COPD exacerbation Is this a current diagnosis for this admission?: Yes Plan: stable
--- NOTE | 2017-07-22 20:16 | PDOC PROGRESS REPORT ---
Subjective Progress Note for:: 07/08/17 Subjective:: 2L home o2 chronic resp failure extubate to bi-pap Reason For Visit: ACUTE RESPIRATORY FAILURE WITH HYPERCARBIA Physical Exam Vital Signs: Temp Pulse Resp BP Pulse Ox 98.6 F 57 L 18 131/53 H 100 07/11/17 11:23 07/11/17 11:23 07/11/17 11:23 07/11/17 11:23 07/11/17 11:23 Intake & Output 07/10/17 07/11/17 07/12/17 06:59 06:59 06:59 Intake Total 480 570 Balance 480 570 Weight 99.1 kg General appearance: PRESENT: no acute distress, disheveled, obese Head exam: PRESENT: atraumatic, normocephalic Eye exam: PRESENT: conjunctiva pale, EOMI. ABSENT: nystagmus, periorbital swelling, scleral icterus Mouth exam: PRESENT: moist, neck supple, tongue midline Neck exam: ABSENT: carotid bruit, JVD, lymphadenopathy, thyromegaly, tracheal deviation, tracheostomy Respiratory exam: PRESENT: decreased breath sounds, prolonged expiratory phas, rhonchi, symmetrical, unlabored, wheezes. ABSENT: retraction, stridor Cardiovascular exam: PRESENT: RRR, +S1, +S2 Pulses: PRESENT: normal radial pulses GI/Abdominal exam: PRESENT: diminished bowel sounds, soft Extremities exam: ABSENT: calf tenderness, clubbing Musculoskeletal exam: ABSENT: deformity, dislocation Neurological exam: PRESENT: awake Skin exam: PRESENT: dry, warm Results Laboratory Results: 07/10/17 07:40 07/11/17 07:38 07/11/17 07:38 Sodium 140.9 Potassium 4.3 Chloride 97 L Carbon Dioxide 35 H Anion Gap 9 BUN 18 Creatinine 0.88 Est GFR ( Amer) > 60 Est GFR (Non-Af Amer) > 60 Glucose 89 Calcium 9.5 Total Bilirubin 0.7 AST 15 ALT 65 H Alkaline Phosphatase 56 Total Protein 6.3 Albumin 3.8 06/30/17 06:00 NT-Pro-B Natriuret Pep 544 Impressions: KUB X-Ray 06/24/17 10:17 IMPRESSION: Distal OG tube appears to be in good position. Chest X-Ray 06/30/17 00:00 IMPRESSION: No acute findings in the chest. Chest/Abdomen CTA 07/01/17 00:00 IMPRESSION: Medial segment right middle lobe lung consolidation worrisome for a small focus of pneumonia. Probable reactive mediastinal adenopathy Heavily calcified aortic valve with thickened left ventricular myocardium and mild dilatation of the ascending thoracic aorta. Findings worrisome for aortic stenosis Assessment & Plan - Diagnosis (1) Acute on chronic respiratory failure with hypoxia and hypercapnia Is this a current diagnosis for this admission?: Yes Plan: The above patient has failed BiPAP. This patient would benefit from noninvasive mechanical ventilation via the trilogy AVAPS/AE and faster responding AVAPS rates. The trilogy is able to provide a target tidal volume and also adjusting the EPAP pressures to maintain a patent airway as well as an oral backup rate this machine will help improve PaCO2 levels. The severity of the patient's condition will lead to future hospitalizations and readmissions as well as life-threatening situations without the use of this device trilogy home vent needed for hypercapnic respiratory failure. [facility] or [facility] [place] to follow for trilogy set up. (2) Anemia Is this a current diagnosis for this admission?: Yes (3) COPD exacerbation Is this a current diagnosis for this admission?: Yes Plan: stable
--- NOTE | 2017-07-22 20:20 | PDOC PROGRESS REPORT ---
Subjective Progress Note for:: 07/09/17 Subjective:: 2L home o2 chronic resp failure extubate to bi-pap Reason For Visit: ACUTE RESPIRATORY FAILURE WITH HYPERCARBIA Physical Exam Vital Signs: Temp Pulse Resp BP Pulse Ox 98.6 F 57 L 18 131/53 H 100 07/11/17 11:23 07/11/17 11:23 07/11/17 11:23 07/11/17 11:23 07/11/17 11:23 Intake & Output 07/10/17 07/11/17 07/12/17 06:59 06:59 06:59 Intake Total 480 570 Balance 480 570 Weight 99.1 kg General appearance: PRESENT: no acute distress, disheveled, obese Head exam: PRESENT: atraumatic, normocephalic Eye exam: PRESENT: conjunctiva pale, EOMI. ABSENT: nystagmus, periorbital swelling Mouth exam: PRESENT: moist, neck supple, tongue midline Neck exam: ABSENT: carotid bruit, JVD, lymphadenopathy, thyromegaly, tracheal deviation, tracheostomy Respiratory exam: PRESENT: decreased breath sounds, prolonged expiratory phas, rhonchi, symmetrical, unlabored. ABSENT: retraction, stridor Cardiovascular exam: PRESENT: RRR, +S1, +S2 Pulses: PRESENT: normal radial pulses GI/Abdominal exam: PRESENT: diminished bowel sounds, soft Extremities exam: ABSENT: calf tenderness, clubbing Musculoskeletal exam: ABSENT: deformity, dislocation Neurological exam: PRESENT: awake Skin exam: PRESENT: dry, warm Results Laboratory Results: 07/10/17 07:40 07/11/17 07:38 07/11/17 07:38 Sodium 140.9 Potassium 4.3 Chloride 97 L Carbon Dioxide 35 H Anion Gap 9 BUN 18 Creatinine 0.88 Est GFR ( Amer) > 60 Est GFR (Non-Af Amer) > 60 Glucose 89 Calcium 9.5 Total Bilirubin 0.7 AST 15 ALT 65 H Alkaline Phosphatase 56 Total Protein 6.3 Albumin 3.8 06/30/17 06:00 NT-Pro-B Natriuret Pep 544 Impressions: KUB X-Ray 06/24/17 10:17 IMPRESSION: Distal OG tube appears to be in good position. Chest X-Ray 06/30/17 00:00 IMPRESSION: No acute findings in the chest. Chest/Abdomen CTA 07/01/17 00:00 IMPRESSION: Medial segment right middle lobe lung consolidation worrisome for a small focus of pneumonia. Probable reactive mediastinal adenopathy Heavily calcified aortic valve with thickened left ventricular myocardium and mild dilatation of the ascending thoracic aorta. Findings worrisome for aortic stenosis Assessment & Plan - Diagnosis (1) Acute on chronic respiratory failure with hypoxia and hypercapnia Is this a current diagnosis for this admission?: Yes Plan: The above patient has failed BiPAP. This patient would benefit from noninvasive mechanical ventilation via the trilogy AVAPS/AE and faster responding AVAPS rates. The trilogy is able to provide a target tidal volume and also adjusting the EPAP pressures to maintain a patent airway as well as an oral backup rate this machine will help improve PaCO2 levels. The severity of the patient's condition will lead to future hospitalizations and readmissions as well as life-threatening situations without the use of this device trilogy home vent needed for hypercapnic respiratory failure. [facility] or [facility] [place] to follow for trilogy set up. (2) Anemia Is this a current diagnosis for this admission?: Yes (3) COPD exacerbation Is this a current diagnosis for this admission?: Yes Plan: stable
--- NOTE | 2017-07-22 20:21 | PDOC PROGRESS REPORT ---
Subjective Progress Note for:: 07/11/17 Subjective:: 2L home o2 chronic resp failure extubate to bi-pap Reason For Visit: ACUTE RESPIRATORY FAILURE WITH HYPERCARBIA Physical Exam Vital Signs: Temp Pulse Resp BP Pulse Ox 98.6 F 57 L 18 131/53 H 100 07/11/17 11:23 07/11/17 11:23 07/11/17 11:23 07/11/17 11:23 07/11/17 11:23 Intake & Output 07/10/17 07/11/17 07/12/17 06:59 06:59 06:59 Intake Total 480 570 Balance 480 570 Weight 99.1 kg General appearance: PRESENT: no acute distress, disheveled, obese Head exam: PRESENT: atraumatic, normocephalic Eye exam: PRESENT: conjunctiva pale, EOMI. ABSENT: nystagmus, periorbital swelling, scleral icterus Mouth exam: PRESENT: moist, neck supple, tongue midline Neck exam: ABSENT: carotid bruit, JVD, lymphadenopathy, thyromegaly, tracheal deviation, tracheostomy Respiratory exam: PRESENT: decreased breath sounds, prolonged expiratory phas, rhonchi, symmetrical, unlabored, wheezes. ABSENT: stridor Cardiovascular exam: PRESENT: RRR, +S1, +S2 Pulses: PRESENT: normal radial pulses GI/Abdominal exam: PRESENT: distended, soft Extremities exam: ABSENT: calf tenderness, clubbing Musculoskeletal exam: ABSENT: deformity, dislocation Neurological exam: PRESENT: awake Skin exam: PRESENT: dry, warm Results Laboratory Results: 07/10/17 07:40 07/11/17 07:38 07/11/17 07:38 Sodium 140.9 Potassium 4.3 Chloride 97 L Carbon Dioxide 35 H Anion Gap 9 BUN 18 Creatinine 0.88 Est GFR ( Amer) > 60 Est GFR (Non-Af Amer) > 60 Glucose 89 Calcium 9.5 Total Bilirubin 0.7 AST 15 ALT 65 H Alkaline Phosphatase 56 Total Protein 6.3 Albumin 3.8 06/30/17 06:00 NT-Pro-B Natriuret Pep 544 Impressions: KUB X-Ray 06/24/17 10:17 IMPRESSION: Distal OG tube appears to be in good position. Chest X-Ray 06/30/17 00:00 IMPRESSION: No acute findings in the chest. Chest/Abdomen CTA 07/01/17 00:00 IMPRESSION: Medial segment right middle lobe lung consolidation worrisome for a small focus of pneumonia. Probable reactive mediastinal adenopathy Heavily calcified aortic valve with thickened left ventricular myocardium and mild dilatation of the ascending thoracic aorta. Findings worrisome for aortic stenosis Assessment & Plan - Diagnosis (1) Acute on chronic respiratory failure with hypoxia and hypercapnia Is this a current diagnosis for this admission?: Yes Plan: The above patient has failed BiPAP. This patient would benefit from noninvasive mechanical ventilation via the trilogy AVAPS/AE and faster responding AVAPS rates. The trilogy is able to provide a target tidal volume and also adjusting the EPAP pressures to maintain a patent airway as well as an oral backup rate this machine will help improve PaCO2 levels. The severity of the patient's condition will lead to future hospitalizations and readmissions as well as life-threatening situations without the use of this device trilogy home vent needed for hypercapnic respiratory failure. [facility] or [facility] [place] to follow for trilogy set up. (2) Anemia Is this a current diagnosis for this admission?: Yes (3) COPD exacerbation Is this a current diagnosis for this admission?: Yes Plan: stable
--- NOTE | 2017-07-31 12:09 | PDOC PROGRESS REPORT ---
Subjective Progress Note for:: 07/04/17 Subjective:: Remains on BiPAP Reason For Visit: ACUTE RESPIRATORY FAILURE WITH HYPERCARBIA Physical Exam Vital Signs: Temp Pulse Resp BP Pulse Ox 98.6 F 67 12 141/57 H 96 07/11/17 16:00 07/11/17 16:00 07/11/17 16:00 07/11/17 16:00 07/11/17 16:00 General appearance: PRESENT: no acute distress, disheveled, morbidly obese, well -developed Head exam: PRESENT: atraumatic, normocephalic Eye exam: PRESENT: conjunctiva pale, EOMI. ABSENT: nystagmus, periorbital swelling, scleral icterus Mouth exam: PRESENT: moist, neck supple, tongue midline Neck exam: ABSENT: carotid bruit, JVD, lymphadenopathy, thyromegaly, tracheal deviation, tracheostomy Respiratory exam: PRESENT: decreased breath sounds, prolonged expiratory phas, rhonchi, symmetrical, unlabored. ABSENT: retraction, tachypnea Cardiovascular exam: PRESENT: RRR, +S1, +S2 Pulses: PRESENT: normal radial pulses GI/Abdominal exam: PRESENT: diminished bowel sounds, soft Extremities exam: ABSENT: calf tenderness, clubbing Musculoskeletal exam: ABSENT: deformity, dislocation Neurological exam: PRESENT: awake Skin exam: PRESENT: dry, warm Results Laboratory Results: 07/10/17 07:40 07/11/17 07:38 06/30/17 06:00 NT-Pro-B Natriuret Pep 544 Impressions: KUB X-Ray 06/24/17 10:17 IMPRESSION: Distal OG tube appears to be in good position. Chest X-Ray 06/30/17 00:00 IMPRESSION: No acute findings in the chest. Chest/Abdomen CTA 07/01/17 00:00 IMPRESSION: Medial segment right middle lobe lung consolidation worrisome for a small focus of pneumonia. Probable reactive mediastinal adenopathy Heavily calcified aortic valve with thickened left ventricular myocardium and mild dilatation of the ascending thoracic aorta. Findings worrisome for aortic stenosis Assessment & Plan - Diagnosis (1) Acute and chronic respiratory failure Qualifiers: Respiratory failure complication: hypoxia and hypercapnia Qualified Code(s) : J96.21 - Acute and chronic respiratory failure with hypoxia; J96.22 - Acute and chronic respiratory failure with hypercapnia; J96.22 - Acute and chronic respiratory failure with hypercapnia; J96.22 - Acute and chronic respiratory failure with hypercapnia Is this a current diagnosis for this admission?: Yes Plan: Remains on BiPAP (2) Elevated LFTs Is this a current diagnosis for this admission?: No (3) Obesity (BMI 30-39.9) Is this a current diagnosis for this admission?: Yes Plan: unchanged
--- NOTE | 2017-08-28 09:41 | PDOC DISCHARGE SUMMARY ---
General - Admit/Disc Date/PCP Admission Date/Primary Care Provider: 06/24/17 12:47 JUANA MACK MD Discharge Date: 07/11/17 - Discharge Diagnosis (1) Acute on chronic respiratory failure with hypoxia and hypercapnia Is this a current diagnosis for this admission?: Yes Summary: Secondary to COPD exacerbation stemming from a URI. The patient presented to the hospital for SOB. She was hypercapnic and hypoxic to the point that she was intubated. She was treated with mechanical ventilation as well as steroids and nebulizers. There was never been evidence of an infectious process. Following extubation on June 26, 2017, the patient was still requiring BIPAP at night and when taking naps during the day. When the patient is awake, she requires supplemental oxygen via nasal cannula. Bedside pulmonary function test showed 49 % improvement after treatment. Restarted on home dose Pulmicort, around the clock Nebs and PRN xopenex. Pulmonology following, recommend outpatient pulmonary rehab. (2) COPD exacerbation Is this a current diagnosis for this admission?: Yes Summary: Bronchodilators. Inhaled corticosteroids. Pulmicort. BIPAP when sleeping (day or night) and continuous supplemental oxygen. (3) Chronic respiratory acidosis Is this a current diagnosis for this admission?: Yes Summary: No evidence of acidosis. The patient is a chronic CO2 retainer, she requires BIPAP when sleeping (day or night) otherwise she will experience recurrent episodes of HYPERcapnea and respiratory failure requiring hospitalization (4) Hypertension Is this a current diagnosis for this admission?: Yes Summary: Controlled with amlodipine and lisinopril (5) Metabolic encephalopathy Is this a current diagnosis for this admission?: Yes Summary: Resolved. Was secondary to acute illness. Patient has returned to baseline. - Additional Information Resuscitation Status: Full Code Discharge Diet: Cardiac Discharge Activity: Activity As Tolerated Prescriptions: Budesonide [Pulmicort Neb 0.5 mg/2 ml Ampul] 0.5 mg NEB RTQ12 #5 ampul.neb Ipratropium/Albuterol Sulfate [Duoneb 3 ml Ampul] 3 ml NEB Q6 PRN #5 vial.neb PRN Reason: Levalbuterol HCl [Xopenex Neb 1.25 mg/3 ml Ampul] 1.25 mg NEB Q6 PRN #5 vial.neb PRN Reason: Home Medications: Amlodipine Besylate [Norvasc 5 mg Tablet] 5 mg PO DAILY 06/24/17 Diclofenac Sodium [Voltaren] 1 applic TOP BID 06/24/17 Fluticasone Propionate [Flonase Nasal [place] 50 Mcg/[place] 16 gm] 2 sprays NASL DAILY 06/24/17 Lisinopril [Prinivil] 20 mg PO DAILY 06/24/17 Montelukast Sodium [Singulair 10 mg Tablet] 10 mg PO QHS 06/24/17 Pravastatin Sodium [Pravachol] 40 mg PO QHS 06/24/17 Tizanidine HCl [Zanaflex 4 mg Tablet] 4 mg PO Q6HP PRN 06/24/17 Budesonide [Pulmicort Neb 0.5 mg/2 ml Ampul] 0.5 mg NEB RTQ12 #5 ampul.neb 07/11 Ipratropium/Albuterol Sulfate [Duoneb 3 ml Ampul] 3 ml NEB Q6 PRN #5 vial.neb Levalbuterol HCl [Xopenex Neb 1.25 mg/3 ml Ampul] 1.25 mg NEB Q6 PRN #5 vial.neb 07/11/17 History of Present Illness Patient complains of: Shortness of breath History of Present Illness: GIACOMO CARRILLO is a 66 year old [place] female who presented to the emergency department with significant respiratory distress. At the time of presentation to the emergency department she was apparently oxygenating at 54% on room air. The patient was initially started on BiPAP and her oxygen saturations improved into the 80s. There was no evidence of pneumonia although the patient was noted to have cold-like symptoms at that time. Patient eventually became hypercapnic and hypoxic to the point that she was intubated. She was treated with mechanical ventilation as well as steroids and nebulizers. There was never been evidence of an infectious process. She was successfully extubated on June 26, 2017 however she remained chronically hypercapnic, but not acidotic, and her mental status remained at baseline. The patient requires BIPAP each night and when taking naps during the day. Hospital Course Hospital Course: as above Physical Exam Vital Signs: Temp Pulse Resp BP Pulse Ox 98.6 F 67 12 141/57 H 96 07/11/17 16:00 07/11/17 16:00 07/11/17 16:00 07/11/17 16:00 07/11/17 16:00 General appearance: PRESENT: no acute distress Eye exam: PRESENT: PERRLA Mouth exam: PRESENT: moist Teeth exam: PRESENT: poor dentation Respiratory exam: PRESENT: clear to auscultation jett, prolonged expiratory phas Cardiovascular exam: PRESENT: +S1, +S2 Pulses: PRESENT: normal radial pulses, normal dorsalis pedis pul GI/Abdominal exam: PRESENT: normal bowel sounds, soft Rectal exam: PRESENT: deferred Extremities exam: PRESENT: full ROM Musculoskeletal exam: PRESENT: ambulatory, full ROM Neurological exam: PRESENT: alert, awake, oriented to person, oriented to place , oriented to time, oriented to situation Results Laboratory Results: 07/10/17 07:40 07/11/17 07:38 06/30/17 06:00 NT-Pro-B Natriuret Pep 544 Impressions: KUB X-Ray 06/24/17 10:17 IMPRESSION: Distal OG tube appears to be in good position. Chest X-Ray 06/30/17 00:00 IMPRESSION: No acute findings in the chest. Chest/Abdomen CTA 07/01/17 00:00 IMPRESSION: Medial segment right middle lobe lung consolidation worrisome for a small focus of pneumonia. Probable reactive mediastinal adenopathy Heavily calcified aortic valve with thickened left ventricular myocardium and mild dilatation of the ascending thoracic aorta. Findings worrisome for aortic stenosis Status: Imported from PACS Qualifiers - * PATEINT BEING DISCHARGED WITH ANY OF THE FOLLOWING DIAGNOSIS?: No Plan Discharge Plan: Discharge home with outpatient pulmonary rehab, nebulizers, home O2, and instructions to use BIPAP whenever she is sleeping (day or night) Time Spent: Greater than 30 Minutes
== END 2017-07-11 17:44 | disposition home health service (06) | DRG 208 ==
LOC: ER 09:55 → EH 12:47 → ICU 17:48 → 5 06-27 11:28
PROVIDERS: ADMIT Emergency Medicine; ATTEND Emergency Medicine
PROC: 5A1945Z Respiratory Ventilation, 24-96 Consecutive Hours (ICD-10-PCS; principal; 2017-06-24)
PROC: 0BH17EZ Insertion of Endotracheal Airway into Trachea, Via Natural or Artificial Opening (ICD-10-PCS; 2017-06-24)
PROC: 3E0F73Z Introduction of Anti-inflammatory into Respiratory Tract, Via Natural or Artificial Opening (ICD-10-PCS; 2017-06-24)
PROC: 02HV33Z Insertion of Infusion Device into Superior Vena Cava, Percutaneous Approach (ICD-10-PCS; 2017-06-24)
PROC: 5A09557 Assistance with Respiratory Ventilation, Greater than 96 Consecutive Hours, Continuous Positive Airway Pressure (ICD-10-PCS; 2017-06-26)
PROC: 3E0234Z Introduction of Serum, Toxoid and Vaccine into Muscle, Percutaneous Approach (ICD-10-PCS; 2017-07-11)
DX: J96.21 Acute and chronic respiratory failure with hypoxia (principal); R57.1 Hypovolemic shock; G93.41 Metabolic encephalopathy; J18.9 Pneumonia, unspecified organism; J44.1 Chronic obstructive pulmonary disease with (acute) exacerbation; I95.9 Hypotension, unspecified; Z99.81 Dependence on supplemental oxygen; J96.22 Acute and chronic respiratory failure with hypercapnia; E78.00 Pure hypercholesterolemia, unspecified; I10 Essential (primary) hypertension; D64.9 Anemia, unspecified; E66.9 Obesity, unspecified; Z68.37 Body mass index [BMI] 37.0-37.9, adult; Z23 Encounter for immunization; Z90.49 Acquired absence of other specified parts of digestive tract; Z78.1 Physical restraint status; Z79.899 Other long term (current) drug therapy; Z91.09 Other allergy status, other than to drugs and biological substances
CPT/HCPCS: 36415; 36600; 51702; 71045; 71275; 74018; 80048; 80053; 81001; 82803; 82962; 83605; 83735; 83880; 84100; 85025; 85027; 85610; 87040; 87086; 90686; 93005; 93010; 94002; 94003; 94010; 94660; 96374; 99291; 99292; C1751; G8978-GP; G8979-GP; J0330; J1100; J1650; J2250; J2704; J2920; J3010; J3490; J7030; J7512; J7620; S0164

== ENCOUNTER 2017-10-02 16:04 | Emergency (ER) | payer MEDICARE, MEDICAID ==
--- NOTE | 2017-10-02 16:36 | ER Document Report ---
ED Medical Screen (RME) - General Chief Complaint: Breathing Difficulty Stated Complaint: DIFFICULTY BREATHING Time Seen by Provider: 10/02/17 16:25 Notes: RAPID MEDICAL EVALUATION DISCLOSURE I have seen this patient as part of a Rapid Medical Evaluation and, if applicable, placed any initially appropriate orders. The patient will be seen and fully evaluated, including a full history and physical exam, by a provider ( in Main ED or Fast Track) when a room becomes available. 67-year-old female PMH COPD sent here by her pulmonary rehabilitation staff for elevated heart rate. She does not know the heart rate at the rehab center however when she went home it was 128 and then upon rechecking it, it was 112. Her oxygen was 89% during the same time. She does wear 2 L nasal cannula at baseline for COPD. She thinks this might be a COPD exacerbation however she adamantly denies wheezing cough chest pain/tightness. Her shortness of breath has been ongoing for the past 1 week but it is progressively worsening. She denies any leg swelling. EXAM Regular rate and rhythm Clear to auscultation bilaterally without wheezes rales rhonchi Normal aeration No lower extremity pitting edema TRAVEL OUTSIDE OF THE [place] IN LAST 30 DAYS: No - Related Data Allergies/Adverse Reactions: fluticasone [From Advair Diskus] Adverse Reaction (Verified 06/21/17 02:25) salmeterol [From Advair Diskus] Adverse Reaction (Verified 06/21/17 02:25) Past Medical History - Social History Chew tobacco use (# tins/day): No Frequency of alcohol use: None Drug Abuse: None - Past Medical History Cardiac Medical History: Reports: Hx Hypercholesterolemia, Hx Hypertension Pulmonary Medical History: Reports: Hx Asthma, Hx COPD, Hx Sleep Apnea Renal/ Medical History: Denies: Hx Peritoneal Dialysis Past Surgical History: Reports: Hx Cholecystectomy, Hx Orthopedic Surgery - left ankle, Hx Tonsillectomy - Immunizations History of Influenza Vaccine for 03/2017 - 07/2017 Season: Unknown Physical Exam - Vital signs Vitals: Temp Pulse Resp BP Pulse Ox 98.7 F 64 20 133/58 H 93 10/02/17 16:23 10/02/17 16:23 10/02/17 16:23 10/02/17 16:23 10/02/17 16:23 Course - Vital Signs Vital signs: Temp Pulse Resp BP Pulse Ox 98.7 F 64 20 133/58 H 93 10/02/17 16:23 10/02/17 16:23 10/02/17 16:23 10/02/17 16:23 10/02/17 16:23
[2017-10-02 17:20] LABS: ABSOLUTE BASOPHILS # (AUTO) 0.1 10^3/uL (0.0-0.2); ABSOLUTE EOSINOPHILS # (AUTO) 0.3 10^3/uL (0.0-0.6); ABSOLUTE LYMPHOCYTES (AUTO) 1.5 10^3/uL (0.5-4.7); ABSOLUTE MONOCYTES (AUTO) 0.4 10^3/uL (0.1-1.4); ABSOLUTE NEUT (AUTO) 3.8 10^3/uL (1.7-8.2); BASOPHILS % (AUTO) 0.9 % (0-2); EOSINOPHILS % (AUTO) 4.3 % (0-6); HEMATOCRIT 35.5 % (36.0-47.0); HEMOGLOBIN 11.9 g/dL (12.0-15.5); LYMPHOCYTES % (AUTO) 24.3 % (13-45); MEAN CORPUSCULAR HEMOGLOBIN 27.1 pg (27.0-33.4); MEAN CORPUSCULAR HGB CONC 33.6 g/dL (32.0-36.0); MEAN CORPUSCULAR VOLUME 81 fl (80-97); MONOCYTES % (AUTO) 6.7 % (3-13); PLATELET COUNT 284 10^3/uL (150-450); RED BLOOD COUNT 4.41 10^6/uL (3.72-5.28); RED CELL DISTRIBUTION WIDTH 16.1 % (11.5-14.0); SEGMENTED NEUTROPHILS % (AUTO) 63.8 % (42-78); TOTAL CELLS COUNTED % (AUTO) 100 %
[2017-10-02] MEDS ORDERED: IPRATROPIUM/ALBUTEROL 0.5-2.5 MG/3 ML AMPUL NEB ONE (17:22)
--- NOTE | 2017-10-02 17:31 | RADIOLOGY REPORT (SQ) ---
EXAM DESCRIPTION: CHEST 2 VIEWS COMPLETED DATE/TIME: 10/02/2017 5:02 pm REASON FOR STUDY: SOB COMPARISON: None. EXAM PARAMETERS: NUMBER OF VIEWS: two views TECHNIQUE: Digital Frontal and Lateral radiographic views of the chest acquired. RADIATION DOSE: NA LIMITATIONS: none FINDINGS: LUNGS AND PLEURA: Hyperinflation of the lungs. There is no infiltrate or effusion. There is no mass. MEDIASTINUM AND HILAR STRUCTURES: No masses or contour abnormalities. HEART AND VASCULAR STRUCTURES: Cardiomegaly with no evidence of failure. BONES: No acute findings. HARDWARE: None in the chest. OTHER: No other significant finding. IMPRESSION: Chronic lung changes with no acute pulmonary disease. Cardiomegaly without failure. TECHNICAL DOCUMENTATION: JOB ID: [id number] [employer]- All Rights Reserved Reading location - IP/workstation name: [email or web address]
[2017-10-02 17:38] LABS: ANION GAP 9 (5-19); BLOOD UREA NITROGEN 17 mg/dL (7-20); CALCIUM 9.1 mg/dL (8.4-10.2); CARBON DIOXIDE 30 mmol/L (22-30); CHLORIDE 106 mmol/L (98-107); GLUCOSE 103 mg/dL (75-110); POTASSIUM 4.4 mmol/L (3.6-5.0); SODIUM 145.4 mmol/L (137-145)
[2017-10-02 17:50] LABS: NT PRO BNP 50 pg/mL (5-900)
[2017-10-02 17:59] LABS: TROPONIN I < 0.012 ng/mL
--- NOTE | 2017-10-02 18:18 | ER Document Report ---
ED Respiratory Problem - General Chief Complaint: Breathing Difficulty Stated Complaint: DIFFICULTY BREATHING Time Seen by Provider: 10/02/17 16:25 Mode of Arrival: Ambulatory Information source: Patient Notes: Patient is a 67-year-old female with COPD who presents to the ER today for worsening shortness of breath over the past week. Patient admits to productive cough and wheezing. Patient denies any fever, chills. Patient states that she is been taking her inhalers and albuterol as directed on the shortness of breath is worse with exertion. She has no history of congestive heart failure. Patient is on 2 L of oxygen at home all the time, ventilator at night. TRAVEL OUTSIDE OF THE [place] IN LAST 30 DAYS: No - Related Data Allergies/Adverse Reactions: fluticasone [From Advair Diskus] Adverse Reaction (Verified 06/21/17 02:25) salmeterol [From Advair Diskus] Adverse Reaction (Verified 06/21/17 02:25) Past Medical History - General Information source: Patient - Social History Smoking Status: Former Smoker Chew tobacco use (# tins/day): No Frequency of alcohol use: None Drug Abuse: None Family History: Reviewed & Not Pertinent Patient has suicidal ideation: No Patient has homicidal ideation: No - Past Medical History Cardiac Medical History: Reports: Hx Hypercholesterolemia, Hx Hypertension Pulmonary Medical History: Reports: Hx Asthma, Hx COPD, Hx Sleep Apnea Renal/ Medical History: Denies: Hx Peritoneal Dialysis Past Surgical History: Reports: Hx Cholecystectomy, Hx Orthopedic Surgery - left ankle, Hx Tonsillectomy Review of Systems - Review of Systems Constitutional: No symptoms reported EENT: No symptoms reported Cardiovascular: No symptoms reported Respiratory: See HPI Gastrointestinal: No symptoms reported Genitourinary: No symptoms reported Female Genitourinary: No symptoms reported Musculoskeletal: No symptoms reported Skin: No symptoms reported Hematologic/Lymphatic: No symptoms reported Neurological/Psychological: No symptoms reported Physical Exam - Vital signs Vitals: Temp Pulse Resp BP Pulse Ox 98.7 F 64 20 133/58 H 93 10/02/17 16:23 10/02/17 16:23 10/02/17 16:23 10/02/17 16:23 10/02/17 16:23 - Notes Notes: PHYSICAL EXAMINATION: GENERAL: Chronically ill-appearing, on nasal cannula oxygen from home, but in no acute distress. HEAD: Atraumatic, normocephalic. EYES: Pupils equal round and reactive to light, extraocular movements intact, sclera anicteric, conjunctiva are normal. ENT: ear canals without erythema or foreign body, TMs pearly gamez with good bony landmarks, nares patent, oropharynx clear without exudates. Moist mucous membranes. Airway patent NECK: Normal range of motion, supple without lymphadenopathy LUNGS: CTAB and equal. No wheezes rales or rhonchi. HEART: Regular rate and rhythm without murmurs EXTREMITIES: Normal range of motion, no pitting edema. No cyanosis. NEUROLOGICAL: Cranial nerves grossly intact. Normal sensory/motor exams. PSYCH: Normal mood, normal affect. SKIN: Warm, Dry, normal turgor, no rashes or lesions noted Course - Re-evaluation Re-evalutation: 10/02/17 18:27 Lab work is unremarkable today including a normal white blood cell count, chest x-ray reveals no acute pathology, BNP is normal today, patient's vital signs have all been within normal limits here in the emergency department, she is 93- 97% on her 2 L of oxygen that she wears at home. She is afebrile today. I will have her placed on azithromycin and prednisone to cover for COPD exacerbation. - Vital Signs Vital signs: Temp Pulse Resp BP Pulse Ox 98.7 F 64 20 133/58 H 93 10/02/17 16:23 10/02/17 16:23 10/02/17 16:23 10/02/17 16:23 10/02/17 16:23 - Laboratory Result Diagrams: 10/02/17 16:50 10/02/17 16:50 Laboratory results interpreted by me: 10/02/17 10/02/17 16:50 16:50 Hgb 11.9 L Hct 35.5 L RDW 16.1 H Sodium 145.4 H Creatinine 1.26 H Est GFR ( Amer) 51 L Est GFR (Non-Af Amer) 42 L Discharge - Discharge Clinical Impression: COPD exacerbation Condition: Stable Disposition: HOME, SELF-CARE Additional Instructions: Return immediately for any new or worsening symptoms. Follow up with primary care provider, call tomorrow to make followup appointment. Prescriptions: Azithromycin [Zithromax 250 mg Tablet] 250 mg PO ASDIR PRN #6 tablet PRN Reason: Ipratropium/Albuterol Sulfate [Duoneb 3 ml Ampul] 3 ml NEB Q4 PRN #25 vial.neb PRN Reason: Prednisone [Deltasone 20 mg Tablet] 3 tab PO DAILY 5 Days tablet Referrals: LEONID RODRÍGUEZ MD [Primary Care Provider] - Follow up as needed
[2017-10-02 18:36] VITALS: BP 128/60
--- NOTE | 2017-10-02 23:37 | EKG REPORT ---
SEVERITY:- NORMAL ECG - SINUS RHYTHM : Confirmed by: Quoc Huston 02-Oct-2017 23:37:12
== END 2017-10-02 18:32 | disposition home or self-care (01) ==
LOC: ER 16:04
DX: J44.1 Chronic obstructive pulmonary disease with (acute) exacerbation (principal); E78.00 Pure hypercholesterolemia, unspecified; I10 Essential (primary) hypertension; Z99.81 Dependence on supplemental oxygen; Z90.49 Acquired absence of other specified parts of digestive tract; Z87.891 Personal history of nicotine dependence
CPT/HCPCS: 93005; 94640; 99285; 36415; 85025; 80048; 84484; 83880; 71046; 93010; A9270; J7620

== ENCOUNTER → 2018-07-17 | Outpatient (CLI) | payer MEDICARE, MEDICAID ==
--- NOTE | 2018-07-17 11:27 | RADIOLOGY REPORT (SQ) ---
EXAM DESCRIPTION: CT CHEST WITHOUT COMPLETED DATE/TIME: 07/17/2018 11:04 am REASON FOR STUDY: LOCALIZED ENLARGED LYMPH NODES R59.0 LOCALIZED ENLARGED LYMPH NODES COMPARISON: 07/01/2017 TECHNIQUE: CT scan performed of the chest without intravenous contrast. Images reviewed with lung, soft tissue and bone windows. Reconstructed coronal and sagittal MPR images reviewed. All images st ored on PACS. All CT scanners at this facility use dose modulation, iterative reconstruction, and/or weight based d osing when appropriate to reduce radiation dose to as low as reasonably achievable (ALARA). [facility]: Dose Right [facility]: CareDose [facility]: Dose Right [facility]: Teradose 4D [facility]: CrowdProcess RADIATION DOSE: CT Rad equipment meets quality standard of care and radiation dose reduction techniq ues were employed. CTDIvol: 17.4 mGy. DLP: 688 mGy-cm. mGy. LIMITATIONS: No technical limitations. FINDINGS: LUNGS AND PLEURA: No evidence of focal airspace disease, pleural effusion or pneumothorax. There has been resolution of previously seen consolidation within the right middle lobe. No new valdovinos spicious nodules or masses. HILAR AND MEDIASTINAL STRUCTURES: No mediastinal, hilar or axillary adenopathy. Decreased size of pr eviously seen pretracheal nodes. HEART AND VASCULAR STRUCTURES: Normal heart size. Scattered coronary atherosclerosis. No significan t pericardial effusion. No aneurysm. Aortic valvular calcifications. UPPER ABDOMEN: No acute process in the visualized abdomen. Scattered vascular calcifications. Prior cholecystectomy. THYROID AND OTHER SOFT TISSUES: There is a partially evaluated 2.1 cm hypodense right thyroid lobe no dule. BONES: No acute bony abnormality. No suspicious osseous lesions. Thoracic spondylosis. HARDWARE: None in the chest. OTHER: No other significant findings. IMPRESSION: No evidence of acute cardiopulmonary process. Resolution of previously seen right middl e lobe consolidation and mediastinal adenopathy. Partially evaluated 2.1 cm hypodense right thyroid lobe nodule. Consider ultrasound evaluation for f urther characterization if not previously performed. TECHNICAL DOCUMENTATION: JOB ID: [id number] Quality ID # [id number]: Final reports with documentation of one or more dose reduction techniques (e.g., Au tomated exposure control, adjustment of the mA and/or kV according to patient size, use of iterative reconstruction technique) 2010 [employer]- All Rights Reserved Reading location - IP/workstation name: [email or web address]
--- NOTE | 2018-07-17 11:57 | RADIOLOGY REPORT (SQ) ---
EXAM DESCRIPTION: T SPINE AP/LAT COMPLETED DATE/TIME: 07/17/2018 11:32 am REASON FOR STUDY: THORACIC SPINE PAIN R59.0 LOCALIZED ENLARGED LYMPH NODES COMPARISON: None. NUMBER OF VIEWS: Two views. TECHNIQUE: AP and lateral radiographic images acquired of the thoracic spine. LIMITATIONS: None. FINDINGS: MINERALIZATION: Osteopenia. ALIGNMENT: Moderate kyphotic angulation VERTEBRAE: No fracture or bone lesion. Maintained height, normal segmentation. DISCS: Multilevel mild disc degeneration with associated degenerative spurring HARDWARE: None in the spine. MEDIASTINUM AND SOFT TISSUES: Normal heart size and aortic contour. No soft tissue abnormality. VISUALIZED LUNG RIOS: Clear. OTHER: No other significant finding. IMPRESSION: Degenerative changes. No acute findings. TECHNICAL DOCUMENTATION: JOB ID: [id number] [employer]- All Rights Reserved Reading location - IP/workstation name: [email or web address]
--- NOTE | 2018-07-17 12:10 | RADIOLOGY REPORT (SQ) ---
EXAM DESCRIPTION: CERV SP 4 OR 5 VIEWS COMPLETED DATE/TIME: 07/17/2018 11:32 am REASON FOR STUDY: CERVICALGIA R59.0 LOCALIZED ENLARGED LYMPH NODES COMPARISON: None. NUMBER OF VIEWS: Five views. TECHNIQUE: AP, lateral, obliques and odontoid radiographic images acquired of the cervical spine. LIMITATIONS: None. FINDINGS: MINERALIZATION: Normal. ALIGNMENT: Anatomic. VERTEBRAE: Vertebral bodies of normal height. DISCS: Minimal disc space narrowing C5-C6. Suboptimal due scratch that is suboptimal visualization C 6-C7 because of superimposition of soft tissue from the shoulders FORAMINA: Slight encroachment C5-C6. LATERAL AND POSTERIOR ELEMENTS: Facets, lateral masses and spinous processes without significant find ings. HARDWARE: None in the spine. SOFT TISSUES: No masses or calcifications. Lung apices clear. OTHER: No other significant finding. IMPRESSION: Mild spondylotic change C5-C6. TECHNICAL DOCUMENTATION: JOB ID: [id number] [employer]- All Rights Reserved Reading location - IP/workstation name: [email or web address]
--- NOTE | 2018-07-17 12:13 | RADIOLOGY REPORT (SQ) ---
EXAM DESCRIPTION: L SPINE WHOLE COMPLETED DATE/TIME: 07/17/2018 11:32 am REASON FOR STUDY: MULTIFACTORIAL LOW BACK PAIN R59.0 LOCALIZED ENLARGED LYMPH NODES COMPARISON: None. NUMBER OF VIEWS: Five views including obliques. TECHNIQUE: AP, lateral, oblique, and sacral radiographic images acquired of the lumbar spine. LIMITATIONS: None. FINDINGS: MINERALIZATION: Normal. SEGMENTATION: Normal. No transitional anatomy. ALIGNMENT: Normal. VERTEBRAE: Maintained height. No fracture or worrisome bone lesion. DISCS: Mild disc degeneration L5-S1. POSTERIOR ELEMENTS: Pedicles and facets are intact. No pars defect or posterior arch defects. HARDWARE: None in the spine. PARASPINAL SOFT TISSUES: Normal. PELVIS: Intact as visualized. No fractures or worrisome bone lesions. SI joints intact. OTHER: Fibroid calcification. Mild atherosclerotic plaque abdominal aorta that approaches 3 cm in tr ansverse diameter. Correlation with ultrasound may be a consideration as a baseline study. IMPRESSION: Mild disc degeneration L5-S1. Uterine fibroid calcification. Possible minimal aneurysm al change abdominal aorta. See above discussion. TECHNICAL DOCUMENTATION: JOB ID: [id number] [employer]- All Rights Reserved Reading location - IP/workstation name: [email or web address]
[2018-07-17 12:31] LABS: ABSOLUTE EOSINOPHILS # (AUTO) 0.2 10^3/uL (0.0-0.6); ABSOLUTE LYMPHOCYTES (AUTO) 0.9 10^3/uL (0.5-4.7); ABSOLUTE MONOCYTES (AUTO) 0.3 10^3/uL (0.1-1.4); ABSOLUTE NEUT (AUTO) 2.9 10^3/uL (1.7-8.2); BASOPHILS % (AUTO) 0.8 % (0-2); EOSINOPHILS % (AUTO) 3.6 % (0-6); HEMATOCRIT 36.2 % (36.0-47.0); MEAN CORPUSCULAR HGB CONC 33.3 g/dL (32.0-36.0); MEAN CORPUSCULAR VOLUME 81 fl (80-97); MONOCYTES % (AUTO) 7.4 % (3-13); PLATELET COUNT 261 10^3/uL (150-450); RED BLOOD COUNT 4.45 10^6/uL (3.72-5.28); RED CELL DISTRIBUTION WIDTH 15.1 % (11.5-14.0); SEGMENTED NEUTROPHILS % (AUTO) 68.2 % (42-78); TOTAL CELLS COUNTED % (AUTO) 100 %; WHITE BLOOD COUNT 4.3 10^3/uL (4.0-10.5)
[2018-07-17 12:53] LABS: ALANINE AMINOTRANSFERASE 37 U/L (9-52); ALBUMIN 4.3 g/dL (3.5-5.0); ALKALINE PHOSPHATASE 63 U/L (38-126); ANION GAP 7 (5-19); ASPARTATE AMINO TRANSFERASE 19 U/L (14-36); BILIRUBIN,DIRECT 0.3 mg/dL (0.0-0.4); BILIRUBIN,TOTAL 0.8 mg/dL (0.2-1.3); BLOOD UREA NITROGEN 19 mg/dL (7-20); C-REACTIVE PROTEIN 12.2 mg/L (<10.0); CALCIUM 9.5 mg/dL (8.4-10.2); CARBON DIOXIDE 34 mmol/L (22-30); CHLORIDE 102 mmol/L (98-107); GLUCOSE 94 mg/dL (75-110); POTASSIUM 4.3 mmol/L (3.6-5.0); SODIUM 142.6 mmol/L (137-145); TOTAL PROTEIN 6.8 g/dL (6.3-8.2)
[2018-07-17 13:07] LABS: ERYTHROCYTE SEDIMENTATION RATE 27 mm/hr (0-30)
[2018-07-18 14:37] LABS: ANTICHROMATIN AB <0.2 AI (0.0-0.9); CENTROMERE B AB <0.2 AI (0.0-0.9); JO-1 ANTIBODY (ANACOMP) <0.2 AI (0.0-0.9); SJOGREN'S ANTI-SS-B AB <0.2 AI (0.0-0.9); SJOGREN'S SS-A ANTIBODY <0.2 AI (0.0-0.9)
[2018-07-18 16:04] LABS: DNA DOUBLE STRAND ANTIBODY ANA <1 IU/mL (0-9)
[2018-07-19 14:10] LABS: CYCLIC CITRUL PEPTIDE IGG/A AB 41 units (0-19)
[2018-07-21 15:37] LABS: CYTOPLASMIC (C-ANCA) <1:20 titer (Neg:<1:20)
[2018-07-22 07:06] LABS: PERINUCLEAR (P-ANCA) <1:20 titer (Neg:<1:20)
[2018-07-23 10:38] LABS: CK MACRO TYPE 1 0 % (Not Observ); CK MACRO TYPE 2 0 % (Not Observ); CK-MB 0 % (0-3); CK-MM 100 % (97-100); CREATINE KINASE TOTAL 230 U/L (24-173)
[2018-07-23 11:20] LABS: CK-BB 0 % (0)
== END ==
LOC: RAD 11:01
PROVIDERS: ATTEND Internal Medicine Pulmonary Disease
DX: D89.89 Other specified disorders involving the immune mechanism, not elsewhere classified (principal); R06.00 Dyspnea, unspecified; R59.0 Localized enlarged lymph nodes
CPT/HCPCS: 36415; 71250; 72050; 72070; 72110; 80053; 82552; 85025; 85652; 86021; 86140; 86200; 86225; 86235; 86430

== ENCOUNTER 2018-09-02 09:55 | Day surgery (SDC) | payer MEDICARE, MEDICAID ==
[2018-09-02] MEDS ORDERED: PROPOFOL INJ 200 MG/20 ML VIAL IV ONE (13:45)
[2018-09-02] MEDS ORDERED: MEPERIDINE HCL/PF INJ 25 MG/1 ML DISP.SYRIN IV PRN (13:58)
[2018-09-02] MEDS ORDERED: FENTANYL CITRATE INJ/PF 100 MCG/2 ML AMPUL IV PRN ×3 (13:58)
[2018-09-02] MEDS ORDERED: DIPHENHYDRAMINE HCL 50 MG/ML VIAL IV PRN (13:58)
[2018-09-02] MEDS ORDERED: OXYCODONE-ACETAMINOPHEN 5-325 MG TABLET PO PRN ×2 (13:58)
[2018-09-02] MEDS ORDERED: PROMETHAZINE HCL INJ 25 MG/1 ML VIAL IV PRN ×2 (13:58)
[2018-09-02 14:36] VITALS: BP 141/66
--- NOTE | 2018-09-02 17:49 | Operative Report ---
Operative Report DATE OF SURGERY: 09/02/18 Operative Report: The risks, benefits and alternatives of the procedure including the risk of bleeding, perforation requiring surgery have been explained to the patient in detail and informed consent has been obtained. Patient is taken back to the operating room and placed in a left, lateral decubital position. Timeout was called. Propofol medication is administered. A rectal examination is done which did not reveal any masses, tears or fissures. An Olympus videoscope was introduced into the patient's rectum. The scope was then carefully advanced all the way to the cecum. The cecum was identified by the usual anatomical landmarks of the ileocecal valve as well as the appendiceal office. Photodocumentation is obtained. The scope was then sequentially pulled back via the various segments of the colon including the ascending colon, hepatic flexure, transverse colon, splenic flexure, descending colon and finally into the rectosigmoid portions of the colon. Retroflexion maneuver was performed. PREOPERATIVE DIAGNOSIS: Personal history of polyps POSTOPERATIVE DIAGNOSIS: Colon polyps that was removed via biopsy forceps. Right colon inflammation status post biopsy. Diverticulosis without any evidence of diverticulitis. Internal hemorrhoids OPERATION: Colonoscopy with biopsy SURGEON: SALBADOR ROSAS ANESTHESIA: LMAC TISSUE REMOVED OR ALTERED: As noted above. COMPLICATIONS: None. ESTIMATED BLOOD LOSS: None. INTRAOPERATIVE FINDINGS: As noted above. PROCEDURE: Patient tolerated the procedure well. No immediate postprocedure complications are noted. Patient discharged in good condition. Discharge date 09/02/2018 Discharge diet regular. Discharge activity: Regular. I will wait on the pathology 2-3-week follow-up Patient is instructed to call the office or proceed to the emergency room should there be any further questions or problems Depending on the pathology of the polyp 3-5-year surveillance colonoscopy
== END 2018-09-02 14:50 | disposition home or self-care (01) ==
LOC: OROUT 09:55
PROVIDERS: ATTEND Internal Medicine Gastroenterology
DX: Z12.11 Encounter for screening for malignant neoplasm of colon (principal); Z86.010 Personal history of colon polyps; K57.30 Diverticulosis of large intestine without perforation or abscess without bleeding; K64.8 Other hemorrhoids; K63.5 Polyp of colon; I10 Essential (primary) hypertension; Z87.891 Personal history of nicotine dependence; Z99.81 Dependence on supplemental oxygen; G47.33 Obstructive sleep apnea (adult) (pediatric); D64.9 Anemia, unspecified; J43.9 Emphysema, unspecified; E66.2 Morbid (severe) obesity with alveolar hypoventilation; Z68.35 Body mass index [BMI] 35.0-35.9, adult; Z79.899 Other long term (current) drug therapy; Z79.51 Long term (current) use of inhaled steroids
CPT/HCPCS: 45380; 88305 ×2; J2704; 811

== ENCOUNTER 2018-11-08 19:49 | Emergency (ER) | payer MEDICARE, MEDICAID ==
[2018-11-08 20:11] LABS: ABSOLUTE BASOPHILS # (AUTO) 0.1 10^3/uL (0.0-0.2); ABSOLUTE EOSINOPHILS # (AUTO) 0.1 10^3/uL (0.0-0.6); ABSOLUTE MONOCYTES (AUTO) 0.5 10^3/uL (0.1-1.4); ABSOLUTE NEUT (AUTO) 7.2 10^3/uL (1.7-8.2); BASOPHILS % (AUTO) 0.5 % (0-2); EOSINOPHILS % (AUTO) 0.8 % (0-6); HEMATOCRIT 40.2 % (36.0-47.0); HEMOGLOBIN 13.2 g/dL (12.0-15.5); MEAN CORPUSCULAR VOLUME 82 fl (80-97); MONOCYTES % (AUTO) 4.8 % (3-13); PLATELET COUNT 366 10^3/uL (150-450); RED BLOOD COUNT 4.91 10^6/uL (3.72-5.28); RED CELL DISTRIBUTION WIDTH 14.8 % (11.5-14.0); SEGMENTED NEUTROPHILS % (AUTO) 73.9 % (42-78); TOTAL CELLS COUNTED % (AUTO) 100 %; WHITE BLOOD COUNT 9.8 10^3/uL (4.0-10.5)
--- NOTE | 2018-11-08 20:28 | RADIOLOGY REPORT (SQ) ---
EXAM DESCRIPTION: XR CHEST 1 VIEW COMPLETED DATE/TME: 11/08/2018 19:51 CLINICAL HISTORY: 68 years, Female, dyspnea COMPARISON: Prior study from 10/02/2017 NUMBER OF VIEWS: Two views were obtained. TECHNIQUE: Two frontal views were obtained. LIMITATIONS: None. FINDINGS: Cardiac and mediastinal contours are stable with enlargement of the pulmonary artery as seen on the previous CT chest dated 07/17/2018. Lungs are clear. No pleural effusion or pneumothorax. IMPRESSION: No acute disease. copyright 2010 [employer]- All Rights Reserved
[2018-11-08 20:33] LABS: ALANINE AMINOTRANSFERASE 44 U/L (9-52); ALBUMIN 4.9 g/dL (3.5-5.0); ALKALINE PHOSPHATASE 68 U/L (38-126); ANION GAP 15 (5-19); ASPARTATE AMINO TRANSFERASE 27 U/L (14-36); BILIRUBIN,DIRECT 0.3 mg/dL (0.0-0.4); BILIRUBIN,TOTAL 0.8 mg/dL (0.2-1.3); BLOOD UREA NITROGEN 26 mg/dL (7-20); CALCIUM 10.3 mg/dL (8.4-10.2); CARBON DIOXIDE 25 mmol/L (22-30); CHLORIDE 105 mmol/L (98-107); GLUCOSE 135 mg/dL (75-110); POTASSIUM 4.6 mmol/L (3.6-5.0); SODIUM 145.4 mmol/L (137-145)
--- NOTE | 2018-11-08 21:18 | ER Document Report ---
ED General - General Chief Complaint: Pain All Over Stated Complaint: TROUBLE BREATHING Time Seen by Provider: 11/08/18 20:21 Primary Care Provider: NIC RANGEL PA-C [Primary Care Provider] - Follow up in 3-5 days Notes: Patient is a 68-year-old female with a past medical history of essential hypertension, COPD with oxygen dependence who presents with diffuse muscle spasms and shortness of breath. Patient states that she has a chronic history of diffuse muscle spasming that is been diagnosed as a possible " muscle enzyme deficiency" by her primary care physician and that she usually uses muscle relaxants for this pain. Describes it as a severe, intermittent, spasming pain that is located throughout her the entirety of her body. States that sometimes in the pain becomes severe does make it difficult for her to breathe and that the pain was "too much to tolerate" prompting her to come to the emergency department today. States he has had similar episodes of pain many times in the past and that there is nothing otherwise new or different regarding her pain today. She states that now that the pain is improved she is no longer short of breath beyond her baseline secondary to COPD. She has not seen her general physician regarding today's concerns. She denies associated pleuritic pain, distinct chest pain or pressure, nausea, vomiting or diaphoresis. At the time of my evaluation denies any complaints and states she feels much improved from initial presentation. No obvious exacerbating or alleviating factor for her symptoms. TRAVEL OUTSIDE OF THE [place] IN LAST 30 DAYS: No - Related Data Allergies/Adverse Reactions: fluticasone [From Advair Diskus] Adverse Reaction (Verified 09/02/18 10:05) STOMACH CRAMPS salmeterol [From Advair Diskus] Adverse Reaction (Verified 09/02/18 10:05) STOMACH CRAMPS Past Medical History - General Information source: Patient - Social History Smoking Status: Former Smoker Frequency of alcohol use: None Drug Abuse: None Lives with: Family Family History: Reviewed & Not Pertinent - Past Medical History Cardiac Medical History: Reports: Hx Hypercholesterolemia, Hx Hypertension Denies: Hx Heart Attack Pulmonary Medical History: Reports: Hx Asthma, Hx COPD, Hx Pneumonia, Hx Sleep Apnea Denies: Hx Bronchitis Neurological Medical History: Denies: Hx Cerebrovascular Accident, Hx Seizures Renal/ Medical History: Denies: Hx Peritoneal Dialysis Musculoskeletal Medical History: Denies Hx Arthritis Past Surgical History: Reports: Hx Cholecystectomy, Hx Orthopedic Surgery - left ankle, Hx Tonsillectomy - Immunizations Hx Diphtheria, Pertussis, Tetanus Vaccination: - UNSURE Hx Pneumococcal Vaccination: 06/02/15 Review of Systems - Review of Systems Notes: Constitutional: Negative for fever. HENT: Negative for sore throat. Eyes: Negative for visual changes. Cardiovascular: Negative for chest pain. Respiratory: Negative for shortness of breath. Gastrointestinal: Negative for abdominal pain, vomiting or diarrhea. Genitourinary: Negative for dysuria. Musculoskeletal: Positive for diffuse musculoskeletal pain Skin: Negative for rash. Neurological: Negative for headaches, weakness or numbness. 10 point ROS negative except as marked above and in HPI. Physical Exam - Vital signs Vitals: Pulse Ox 94 11/08/18 19:52 Interpretation: Normal Notes: PHYSICAL EXAMINATION: GENERAL: Well-appearing, well-nourished and in no acute distress. HEAD: Atraumatic, normocephalic. EYES: Pupils equal round and reactive to light, extraocular movements intact, sclera anicteric, conjunctiva are normal. ENT: nares patent, oropharynx clear without exudates. Moist mucous membranes. NECK: Normal range of motion, supple without lymphadenopathy LUNGS: Breath sounds clear to auscultation bilaterally and equal. No wheezes rales or rhonchi. HEART: Regular rate and rhythm without murmurs ABDOMEN: Soft, nontender, normoactive bowel sounds. No guarding, no rebound. No masses appreciated. EXTREMITIES: Normal range of motion, no pitting or edema. No cyanosis. NEUROLOGICAL: No focal neurological deficits. Moves all extremities spontaneously and on command. PSYCH: Normal mood, normal affect. SKIN: Warm, Dry, normal turgor, no rashes or lesions noted. Course - Re-evaluation Re-evalutation: 11/08/18 21:15 Patient presents with complaints of difficulty breathing secondary to diffuse muscle spasms. Patient has a long-standing history of "total body muscle spasming" and states that this is secondary to a deficiency and a muscle and diagnosed her with. She states that the spasms have currently resolved and denies any ongoing. States that this is also normalized her work of breathing. Per nursing documentation the patient was wheezing lung field saturating 98% on her normal 2 L by nasal cannula. The patient states that this is a long- standing problem that there is a schultz nothing new or different regarding her symptoms today. Chest x-ray is clear, labs unremarkable. She did receive steroids by EMS and has had magnesium here both for muscle relaxation effect as well as to continue to improve her work of breathing. Given her otherwise normal work-up, the fact that she is feeling much better, vitals are within normal patient is stable and appropriate for discharge. Clinical history is with acute pulmonary embolus, pneumonia, pneumothorax, ACS or alternative life- threatening etiology. At this time will discharge with return precautions and follow-up recommendations. Verbal discharge instructions given a the bedside and opportunity for questions given. Medication warnings reviewed. Patient is in agreement with this plan and has verbalized understanding of return precautions and the need for primary care follow-up in the next 24-72 hours. - Vital Signs Vital signs: Temp Pulse Resp BP Pulse Ox 17 121/90 H 98 11/08/18 21:02 11/08/18 21:02 11/08/18 21:02 - Laboratory Result Diagrams: 11/08/18 19:49 11/08/18 19:49 Laboratory results interpreted by me: 11/08/18 11/08/18 19:49 19:49 RDW 14.8 H Sodium 145.4 H BUN 26 H Creatinine 1.33 H Est GFR ( Amer) 48 L Est GFR (Non-Af Amer) 39 L Glucose 135 H Calcium 10.3 H - Diagnostic Test Radiology reviewed: Image reviewed, Reports reviewed Radiology results interpreted by me: 11/08/18 21:16 Chest x-ray: No acute infiltrate or pneumothorax - EKG Interpretation by Me Additional EKG results interpreted by me: 11/08/18 21:17 Sinus rhythm, rate 97, no ST elevations or depressions. QTC is 452. Discharge - Discharge Clinical Impression: Muscle spasm, Shortness of breath, Wheezing Condition: Good Disposition: HOME, SELF-CARE Additional Instructions: Your chest x-ray and labs are reassuring today. Please continue to follow with your primary care doctor regarding her episodes of muscle spasming. Continue to take your normal home breathing treatments as scheduled. Return to the emergency department if you have recurrence of your symptoms, fever greater than 100.4 F, persistent vomiting, chest pain or pass out. Follow-up with your primary care physician within the next 24 to 48 hours. Referrals: NIC RANGEL PA-C [Primary Care Provider] - Follow up in 3-5 days
[2018-11-08 21:20] LABS: NT PRO BNP 53 pg/mL (5-900)
[2018-11-08 21:25] LABS: TROPONIN I < 0.012 ng/mL
[2018-11-08] MEDS: MAGNESIUM SULFATE/D5W 1 GM/100 ML RTUPB IV SCH ×2 (21:29→21:50)
[2018-11-08 21:51] VITALS: BP 121/90
--- NOTE | 2018-11-08 22:41 | EKG REPORT ---
SEVERITY:- BORDERLINE ECG - SINUS RHYTHM NONSPECIFIC ST-T CHANGES LATERAL LEADS : Confirmed by: Jake King MD 08-Nov-2018 22:41:03
== END 2018-11-08 22:06 | disposition home or self-care (01) ==
LOC: ER 19:49
DX: M62.838 Other muscle spasm (principal); J44.9 Chronic obstructive pulmonary disease, unspecified; Z99.81 Dependence on supplemental oxygen; R06.02 Shortness of breath; M79.10 Myalgia, unspecified site; I10 Essential (primary) hypertension; Z87.01 Personal history of pneumonia (recurrent); Z87.891 Personal history of nicotine dependence
CPT/HCPCS: 93005; 99284; 96365; 36415; 85025; 80053; 84484; 83880; 71045; 93010; J3475

== ENCOUNTER → 2019-11-09 | Outpatient (CLI) | payer MEDICARE, MEDICAID ==
[2019-11-09 16:32] LABS: ABSOLUTE BASOPHILS # (AUTO) 0.1 10^3/uL (0.0-0.2); ABSOLUTE EOSINOPHILS # (AUTO) 0.2 10^3/uL (0.0-0.6); ABSOLUTE MONOCYTES (AUTO) 0.3 10^3/uL (0.1-1.4); ABSOLUTE NEUT (AUTO) 2.6 10^3/uL (1.7-8.2); BASOPHILS % (AUTO) 1.3 % (0-2); HEMATOCRIT 39.9 % (36.0-47.0); LYMPHOCYTES % (AUTO) 23.8 % (13-45); MEAN CORPUSCULAR HEMOGLOBIN 27.1 pg (27.0-33.4); MEAN CORPUSCULAR HGB CONC 32.7 g/dL (32.0-36.0); MEAN CORPUSCULAR VOLUME 83 fl (80-97); MONOCYTES % (AUTO) 6.9 % (3-13); PLATELET COUNT 268 10^3/uL (150-450); RED BLOOD COUNT 4.82 10^6/uL (3.72-5.28); RED CELL DISTRIBUTION WIDTH 14.8 % (11.5-14.0); TOTAL CELLS COUNTED % (AUTO) 100 %
[2019-11-09 16:51] LABS: CALCIUM 9.4 mg/dL (8.4-10.2)
== END ==
LOC: OD 15:52
PROVIDERS: ATTEND Specialist
DX: G72.9 Myopathy, unspecified (principal)
CPT/HCPCS: 36415; 82140; 82310; 82550; 83605; 84436; 84443; 84480; 85025; 85652

== ENCOUNTER 2019-12-28 23:52 | Inpatient (IN) | payer MEDICARE, MEDICAID ==
[2019-12-29] MEDS ORDERED: PREDNISONE 20 MG TABLET PO ONE (01:54)
[2019-12-29] MEDS ORDERED: IPRATROPIUM/ALBUTEROL 0.5-2.5 MG/3 ML AMPUL NEB ONE (01:54)
--- NOTE | 2019-12-29 01:58 | ER Document Report ---
ED General - General Chief Complaint: Shortness Of Breath Stated Complaint: DIFFICULTY BREATHING Primary Care Provider: GUERITA GODOY MD [Primary Care Provider] - Follow up as needed TRAVEL OUTSIDE OF THE [place] IN LAST 30 DAYS: No - HPI Notes: 69-year-old female history of hypertension, COPD on home O2 2.5 L, asthma presents with 1 week of gradually worsening gradual onset shortness of breath and dyspnea on exertion. Patient has been taking her normal COPD controller meds and albuterol twice daily which provides transient relief. Patient says her symptoms are similar to her prior problems with her COPD. Patient denies any cardiac history, chest pain, lower extremity edema, fever, cough, sick conta cts, recent hospitalization or antibiotics - Related Data Allergies/Adverse Reactions: fluticasone [From Advair Diskus] Adverse Reaction (Verified 11/15/19 15:04) STOMACH CRAMPS salmeterol [From Advair Diskus] Adverse Reaction (Verified 11/15/19 15:04) STOMACH CRAMPS Home Medications: Albuterol, Amplodipine, Diazepam, Ipratropium, Brovana, Lisinopril, Folic Acid, Carbamazpine, Ventolin Past Medical History - General Information source: Patient, [facility] Records - Social History Smoking Status: Never Smoker Frequency of alcohol use: None Drug Abuse: None Family History: Hypertension, Reviewed & Not Pertinent Patient has homicidal ideation: No - Past Medical History Cardiac Medical History: Reports: Hx Hypercholesterolemia, Hx Hypertension Denies: Hx Heart Attack Pulmonary Medical History: Reports: Hx Asthma, Hx COPD, Hx Pneumonia, Hx Sleep Apnea Denies: Hx Bronchitis Neurological Medical History: Denies: Hx Cerebrovascular Accident, Hx Seizures Renal/ Medical History: Denies: Hx Peritoneal Dialysis Musculoskeletal Medical History: Denies Hx Arthritis Past Surgical History: Reports: Hx Cholecystectomy, Hx Orthopedic Surgery - left ankle, Hx Tonsillectomy - Immunizations Hx Diphtheria, Pertussis, Tetanus Vaccination: - UNSURE Hx Pneumococcal Vaccination: 06/02/15 Review of Systems - Review of Systems Notes: REVIEW OF SYSTEMS: CONSTITUTIONAL : Denies fever, chills, or sweats. EENT: Denies recent cold/sinus symptoms, denies throat pain CARDIOVASCULAR: Denies chest pain, DIANA RESPIRATORY: Denies cough, + shortness of breath. GASTROINTESTINAL: Denies abdominal pain, nausea/vomiting. GENITOURINARY: Denies difficulty urinating, painful urination. FEMALE GENITOURINARY: Denies abnormal vaginal bleeding, vaginal discharge. MUSCULOSKELETAL: Denies neck pain, back pain. SKIN: Denies rash or skin lesions. HEMATOLOGIC : Denies easy bruising or bleeding. LYMPHATIC: Denies swollen, enlarged glands. NEUROLOGICAL: Denies headache, denies change in gait. PSYCHIATRIC: Denies anxiety or stress or depression. Physical Exam - Vital signs Vitals: Pulse Ox 100 12/29/19 00:05 - Notes Notes: PHYSICAL EXAMINATION: GENERAL: Well-nourished elderly woman lying in stretcher in no acute distress HEAD: Atraumatic, normocephalic. EYES: Pupils equal round and appropriate constriction, sclera anicteric, conjunctiva are normal. ENT: nares patent, moist mucous membranes. NECK: Normal range of motion, supple without lymphadenopathy LUNGS: Mildly tachypneic, no tripoding, managing secretions, speaking in full sentences, poor air movement with diffusely decreased breath sounds HEART: Regular rate and rhythm without murmurs ABDOMEN: Soft, nontender, no guarding, no masses, no CVAT EXTREMITIES: Normal range of motion, no pitting or edema. No cyanosis. NEUROLOGICAL: Awake, alert, conversing appropriately, moves all extremities spontaneously. PSYCH: Normal mood, normal affect. SKIN: Warm, Dry, normal turgor, no rashes or lesions noted. Course - Re-evaluation Re-evalutation: 12/29/19 01:57 Presentation consistent with COPD exacerbation, will rule out COVID and new onset CHF, ACS. Patient mildly tachypneic with poor air movement but no signs of impending respiratory failure, patient has not had sufficient beta agonist at home and has not noted steroids of 2 now, will observe in ED after steroids and serial nebs, obtain troponin EKG chest x-ray COVID swab, and reassess. Likely discharge with standing albuterol steroids and close PCP follow-up. 12/29/19 05:55 After serial nebs and steroids patient was only minimally improved. Was given a bedside urinal and was extremely dyspneic on transfer to urinal in bed. Repeat lung exam patient has improved air movement but given severe exercise intolerance patient and appropriate for discharge at this time. I have discussed patient with Dr. Morris. - Vital Signs Vital signs: Temp Pulse Resp BP Pulse Ox 98.2 F 19 149/67 H 100 12/29/19 00:20 12/29/19 03:00 12/29/19 01:02 12/29/19 03:00 - Laboratory Result Diagrams: 12/29/19 02:04 12/29/19 02:04 Laboratory results interpreted by me: 12/29/19 12/29/19 12/29/19 02:04 02:04 02:04 RDW 15.6 H Lymph % (Auto) 10.4 L Cache % (Auto) 2.9 L Absolute Lymphs (auto) 0.4 L Seg Neutrophils % 80.9 H VBG pH 7.27 L VBG pCO2 68.1 H* Carbon Dioxide 31 H Est GFR ( Amer) 53 L Est GFR (MDRD) Non-Af 43 L Glucose 163 H ALT 43 H 12/29/19 04:32 RDW Lymph % (Auto) Cache % (Auto) Absolute Lymphs (auto) Seg Neutrophils % VBG pH 7.29 L VBG pCO2 64.3 H Carbon Dioxide Est GFR ( Amer) Est GFR (MDRD) Non-Af Glucose ALT - EKG Interpretation by Me Additional EKG results interpreted by me: 12/29/19 05:57 Heart rate 62, normal sinus rhythm, no significant ST elevations or depressions, no significant T wave abnormalities, QTc 439 Discharge - Discharge Clinical Impression: COPD exacerbation Disposition: ADMITTED INPATIENT Admitting Provider: Alexandra (Hospitalist) Referrals: GUERITA GODOY MD [Primary Care Provider] - Follow up as needed
[2019-12-29 02:20] LABS: ABSOLUTE EOSINOPHILS # (AUTO) 0.2 10^3/uL (0.0-0.6); ABSOLUTE LYMPHOCYTES (AUTO) 0.4 10^3/uL (0.5-4.7); ABSOLUTE MONOCYTES (AUTO) 0.1 10^3/uL (0.1-1.4); ABSOLUTE NEUT (AUTO) 3.4 10^3/uL (1.7-8.2); BASOPHILS % (AUTO) 0.6 % (0-2); EOSINOPHILS % (AUTO) 5.2 % (0-6); HEMATOCRIT 37.2 % (36.0-47.0); HEMOGLOBIN 12.4 g/dL (12.0-15.5); LYMPHOCYTES % (AUTO) 10.4 % (13-45); MEAN CORPUSCULAR HGB CONC 33.3 g/dL (32.0-36.0); MEAN CORPUSCULAR VOLUME 81 fl (80-97); MONOCYTES % (AUTO) 2.9 % (3-13); PLATELET COUNT 224 10^3/uL (150-450); RED BLOOD COUNT 4.59 10^6/uL (3.72-5.28); RED CELL DISTRIBUTION WIDTH 15.6 % (11.5-14.0); SEGMENTED NEUTROPHILS % (AUTO) 80.9 % (42-78); TOTAL CELLS COUNTED % (AUTO) 100 %; WHITE BLOOD COUNT 4.2 10^3/uL (4.0-10.5)
[2019-12-29 02:23] LABS: VENOUS BLOOD BASE EXCESS 2.2 mmol/L; VENOUS BLOOD HCO3 30.8 mmol/L (20-32); VENOUS BLOOD PH 7.27 (7.30-7.42)
[2019-12-29 02:34] LABS: VENOUS BLOOD PCO2 68.1 mmHg (35-63)
[2019-12-29 02:39] LABS: ALBUMIN 4.4 g/dL (3.5-5.0); ALKALINE PHOSPHATASE 57 U/L (38-126); ANION GAP 6 (5-19); ASPARTATE AMINO TRANSFERASE 32 U/L (14-36); BILIRUBIN,DIRECT 0.1 mg/dL (0.0-0.4); BILIRUBIN,TOTAL 0.4 mg/dL (0.2-1.3); BLOOD UREA NITROGEN 19 mg/dL (7-20); CALCIUM 9.3 mg/dL (8.4-10.2); CARBON DIOXIDE 31 mmol/L (22-30); CHLORIDE 100 mmol/L (98-107); GLUCOSE 163 mg/dL (75-110); POTASSIUM 4.3 mmol/L (3.6-5.0); TOTAL PROTEIN 7.4 g/dL (6.3-8.2)
[2019-12-29 02:51] LABS: NT PRO BNP 116 pg/mL (<125)
[2019-12-29 02:52] LABS: TROPONIN I < 0.012 ng/mL
--- NOTE | 2019-12-29 03:11 | RADIOLOGY REPORT (SQ) ---
CLINICAL INDICATION: sob chong copd. TECHNIQUE: A single portable AP view was obtained of the chest at 0 247 hours. COMPARISON: November 08, 2018. FINDINGS: The cardiomediastinal silhouette is enlarged. The lungs are grossly clear. No evidence of effusion or pneumothorax. The visualized bones are unremarkable. IMPRESSION: No evidence of active intrathoracic disease.
[2019-12-29] MEDS ORDERED: ALBUTEROL SULFATE 0.083% NEB 2.5 MG/3 ML AMPUL NEB ONE (04:09)
[2019-12-29 04:46] LABS: VENOUS BLOOD BASE EXCESS 1.6 mmol/L; VENOUS BLOOD HCO3 29.9 mmol/L (20-32); VENOUS BLOOD PCO2 64.3 mmHg (35-63); VENOUS BLOOD PH 7.29 (7.30-7.42)
[2019-12-29] MEDS ORDERED: IPRATROPIUM/ALBUTEROL 0.5-2.5 MG/3 ML AMPUL NEB PRN (05:58)
--- NOTE | 2019-12-29 06:06 | PDOC H&P ---
History of Present Illness Admission Date/PCP: GUERITA GODOY MD History of Present Illness: GIACOMO CARRILLO is a 69 year old female with a history of oxygen dependent COPD who presents with 1 week of worsening shortness of breath. She is not had any fevers. She is not had any productive cough. She said it was initially responding to bronchodilators and was triggered by small exertion but now she is gotten to where she is getting short of breath at rest. She said when it was not improved substantially by bronchodilators she decided to come to the hospital. She was bumped up to 4 L per nasal cannula up from her typical 2.5 L. Chest x-ray was negative. Past Medical History Cardiac Medical History: Reports: Hyperlipidema, Hypertension Denies: Myocardial Infarction Pulmonary Medical History: Reports: Asthma, Chronic Obstructive Pulmonary Disease (COPD), Pneumonia, Sleep Apnea Denies: Bronchitis Neurological Medical History: Denies: Seizures Musculoskeltal Medical History: Denies: Arthritis Hematology: Reports: Anemia - HX Past Surgical History Past Surgical History: Reports: Cholecystectomy, Orthopedic Surgery - left ankle, Tonsillectomy Social History Smoking Status: Never Smoker Frequency of Alcohol Use: None Drugs: None Hx Prescription Drug Abuse: No Family History Family History: Hypertension, Reviewed & Not Pertinent Parental Family History Reviewed: Yes Children Family History Reviewed: Yes Sibling(s) Family History Reviewed.: Yes Medication/Allergy Home Medications: Amlodipine Besylate [Norvasc 5 mg Tablet] 5 mg PO DAILY 06/24/17 Diclofenac Sodium [Voltaren] 1 applic TOP BID 06/24/17 Fluticasone Propionate [Flonase Nasal Papaaloa 50 Mcg/Papaaloa 16 gm] 2 sprays NASL DAILY 06/24/17 Lisinopril [Prinivil] 20 mg PO DAILY 06/24/17 Montelukast Sodium [Singulair 10 mg Tablet] 10 mg PO QHS 06/24/17 Pravastatin Sodium [Pravachol] 40 mg PO QHS 06/24/17 Tizanidine HCl [Zanaflex 4 mg Tablet] 4 mg PO Q6HP PRN 06/24/17 Budesonide [Pulmicort Neb 0.5 mg/2 ml Ampul] 0.5 mg NEB RTQ12 #5 ampul.neb 07/11/17 Levalbuterol HCl [Xopenex Neb 1.25 mg/3 ml Ampul] 1.25 mg NEB Q6 PRN #5 vial.neb 07/11/17 Ipratropium/Albuterol Sulfate [Duoneb 3 ml Ampul] 3 ml NEB Q4 PRN #25 vial.neb 10/02/17 Albuterol Sulfate [Ventolin Hfa 8 gm Mdi (1 Mdi/ER Disp)] 2 puff IH ASDIR PRN 09/01/18 Cholecalciferol (Vitamin D3) [Vitamin D3 5000 unit Capsule] 5,000 unit PO DAILY 09/01/18 Dextran 70/Hypromellose [Artificial Tears] 1 each OU ASDIR PRN 09/01/18 Umeclidinium Bailey [Incruse Ellipta] 1 puff IH DAILY 09/01/18 Albuterol Sulfate [Albuterol Sulfate Hfa] 2 puff IH Q6HP PRN 07/01/19 Amlodipine Besylate [Norvasc 10 mg Tablet] 10 mg PO DAILY 07/01/19 Arformoterol Tartrate [Brovana Inhalation Solution 15 mcg/2 mL] 15 mcg NEB RTQ12 07/01/19 Aspirin/Caffeine [Bc Pain Relief Powder Packet] 1 pkt PO Q12HP PRN 07/01/19 Azelastine/Fluticasone [Dymista Nasal Papaal[place]] 1 spray NAREB DAILY 07/01/19 Budesonide [Pulmicort Neb 0.5 mg/2 ml Ampul] 0.5 mg NEB RTQ12 07/01/19 Carboxymethylcellulose Sodium [Artificial Tears] 1 drop OU QIDP PRN 07/01/19 Cholecalciferol (Vitamin D3) [Vitamin D3 1000 Unit Tablet] 5,000 unit PO DAILY 07/01/19 Diclofenac Sodium 4 gm TP QIDP PRN 07/01/19 Ipratropium Bailey [Atrovent 0.02% Neb 0.5 mg/2.5 ml Ampul] 0.5 mg NEB RTDAILY 07/01/19 Lisinopril 20 mg PO DAILY 07/01/19 Montelukast Sodium [Singulair 10 mg Tablet] 10 mg PO QHS 07/01/19 Pravastatin Sodium 40 mg PO QHS 07/01/19 Revefenacin [Yupelri] 1 vial NEB RTDAILY 07/01/19 Tizanidine HCl [Zanaflex] 2 mg PO QAM 07/01/19 Prednisone [Deltasone 20 mg Tablet] 20 mg PO BID #5 tablet 07/02/19 Allergies/Adverse Reactions: fluticasone [From Advair Diskus] Adverse Reaction (Verified 11/15/19 15:04) STOMACH CRAMPS salmeterol [From Advair Diskus] Adverse Reaction (Verified 11/15/19 15:04) STOMACH CRAMPS Review of Systems All systems: reviewed and no additional remarkable complaints except as stated - All systems were reviewed and were negative except as noted in the HPI Physical Exam Vital Signs: Temp Pulse Resp BP Pulse Ox 98.2 F 19 149/67 H 100 12/29/19 00:20 12/29/19 03:00 12/29/19 01:02 12/29/19 03:00 Intake & Output 12/27/19 12/28/19 12/29/19 06:59 06:59 06:59 Weight 100.6 kg General appearance: PRESENT: cooperative, disheveled, mild distress, morbidly obese Head exam: PRESENT: atraumatic, normocephalic Eye exam: PRESENT: EOMI, PERRLA. ABSENT: conjunctival injection, nystagmus, scleral icterus Ear exam: PRESENT: normal external ear exam Mouth exam: PRESENT: moist, neck supple Teeth exam: PRESENT: poor dentation Throat exam: ABSENT: post pharyngeal erythema Neck exam: PRESENT: full ROM. ABSENT: carotid bruit, JVD, lymphadenopathy, meningismus, tenderness, thyromegaly Respiratory exam: PRESENT: accessory muscle use, decreased breath sounds, prolonged expiratory phas, symmetrical, tachypnea. ABSENT: chest wall tenderness, crackles, rhonchi, unlabored, wheezes Cardiovascular exam: PRESENT: RRR, +S1, +S2 Pulses: PRESENT: normal carotid pulses Vascular exam: PRESENT: normal capillary refill GI/Abdominal exam: PRESENT: normal bowel sounds, soft. ABSENT: distended, guarding, rebound, tenderness Extremities exam: ABSENT: clubbing, pedal edema Musculoskeletal exam: PRESENT: normal inspection. ABSENT: deformity Neurological exam: PRESENT: alert, awake, oriented to person, oriented to place, oriented to time, oriented to situation, CN II-XII grossly intact. ABSENT: motor sensory deficit Psychiatric exam: PRESENT: appropriate affect, normal mood Skin exam: PRESENT: dry, warm Results Laboratory Results: 12/29/19 02:04 12/29/19 02:04 12/29/19 12/29/19 12/29/19 02:04 02:04 02:04 WBC 4.2 RBC 4.59 Hgb 12.4 Hct 37.2 MCV 81 MCH 27.0 MCHC 33.3 RDW 15.6 H Plt Count 224 Seg Neutrophils % 80.9 H VBG pH 7.27 L VBG pCO2 68.1 H* VBG HCO3 30.8 VBG Base Excess 2.2 Sodium 137.0 Potassium 4.3 Chloride 100 Carbon Dioxide 31 H Anion Gap 6 BUN 19 Creatinine 1.22 Est GFR ( Amer) 53 L Glucose 163 H Calcium 9.3 Total Bilirubin 0.4 AST 32 Alkaline Phosphatase 57 Total Protein 7.4 Albumin 4.4 12/29/19 04:32 WBC RBC Hgb Hct MCV MCH MCHC RDW Plt Count Seg Neutrophils % VBG pH 7.29 L VBG pCO2 64.3 H VBG HCO3 29.9 VBG Base Excess 1.6 Sodium Potassium Chloride Carbon Dioxide Anion Gap BUN Creatinine Est GFR ( Amer) Glucose Calcium Total Bilirubin AST Alkaline Phosphatase Total Protein Albumin 12/29/19 02:04 Troponin I < 0.012 NT-Pro-B Natriuret Pep 116 Impressions: Chest X-Ray 12/29/19 01:44 IMPRESSION: No evidence of active intrathoracic disease. Assessment and Plan - Diagnosis (1) Acute on chronic respiratory failure with hypoxia and hypercapnia Is this a current diagnosis for this admission?: Yes Plan: She normally retains little bit of CO2. She said she uses BiPAP at night when she sleeps. She does not know her settings. Supplemental O2 to maintain SPO2 greater than 90%. (2) COPD exacerbation Is this a current diagnosis for this admission?: Yes Plan: IV Solu-Medrol, bronchodilators, supplemental O2. I put her on a diabetic diet in anticipation of the steroids making her blood sugar up, she does not take any medication for diabetes at home. - Time Time Spent with patient: 35 or more minutes Anticipated Discharge Disposition: Home with Home Health Anticipated Discharge: Other - Inpatient Certification Based on my medical assessment, after consideration of the patient's comorbidities, presenting symptoms, or acuity I expect that the services needed warrant INPATIENT care.: Yes I certify that my determination is in accordance with my understanding of [facility]'s requirements for reasonable and necessary INPATIENT services [42 CFR 412.3e].: Yes Medical Necessity: Significant Comorbidiites Make Outpatient Treatment Too Risky, Need Close Monitoring Due to Risk of Patient Decompensation, Need For Continuous Telemetry Monitoring, Need for Nebulizer Therapy and Monitoring of Response, Risk of Complication if Not Cared For in Hospital
[2019-12-29] MEDS: HEPARIN SOD (PORCINE) 5,000 UNIT/ML 1 ML VIAL SUBCUT SCH ×3 (06:31→21:29)
[2019-12-29] MEDS: METHYLPREDNISOLONE INJ 40 MG/1 ML SDV IV SCH ×3 (06:31→21:29)
--- NOTE | 2019-12-29 08:36 | EKG REPORT ---
SEVERITY:- NORMAL ECG - SINUS RHYTHM : Confirmed by: Neva Bo MD 29-Dec-2019 08:35:52
[2019-12-29] MEDS: ACETAMINOPHEN 325 MG TABLET PO PRN ×2 (13:58→21:37)
[2019-12-29] MEDS ORDERED: ALBUTEROL SULFATE HFA (90 MCG/PUFF) 8 GM MDI IH PRN (14:11)
--- NOTE | 2019-12-29 15:49 | Progress Note ---
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 She is currently being evaluated for COVID. She was briefly seen on afternoon rounds. She was found to be tachypneic with accessory muscle use, poor diaphragmatic excursion, and minimal air movement. She reports continued shortness of breath, although slightly improved from last night. She is just received a breathing treatment and is not certain that it has helped much. She does request BiPAP. She states that she utilizes BiPAP at home; believes her settings are 7.5-22 (? AVAP/trilogy). Nursing notes, vital signs, H&P, laboratory evaluation, imaging, and orders reviewed. Agree with the plan of care as established by the previous provider. In addition, have resumed the patient's home medication regiment as appropriate. Have started scheduled nebulizer treatments. Initiated Mucinex twice daily and Singulair nightly. Have requested ABG Initial BiPAP settings at 12/6 FiO2 36% As the patient is being ruled out for coronavirus, will also obtain d-dimer, ferritin, LDH, CRP.
[2019-12-29 16:23] LABS: ARTERIAL BLOOD BASE EXCESS 1.6 mmol/L; ARTERIAL BLOOD H2CO3 1.74 mmol/L (1.05-1.35); ARTERIAL BLOOD HCO3 29.1 mmol/L (20-24); ARTERIAL BLOOD O2 SATURATION 94.8 % (94-98); ARTERIAL BLOOD PCO2 57.9 mmHg (35-45); ARTERIAL BLOOD PH 7.32 (7.35-7.45); ARTERIAL BLOOD PO2 80.9 mmHg (80-100); ARTERIAL BLOOD TOTAL CO2 30.9 mmol/L (21-25)
[2019-12-29 16:29] LABS: ARTERIAL BLOOD FIO2 3%
[2019-12-29 17:19] LABS: FERRITIN 30.8 ng/mL (11.1-264.0)
[2019-12-29] MEDS: IPRATROPIUM/ALBUTEROL 0.5-2.5 MG/3 ML AMPUL NEB SCH (20:05)
[2019-12-29] MEDS: MONTELUKAST SODIUM 10 MG TABLET PO SCH (21:29)
[2019-12-29] MEDS: GUAIFENESIN 600 MG TABLET.SA PO SCH (21:29)
[2019-12-29] MEDS: CARBAMAZEPINE 100 MG TAB.SR.12H PO SCH (21:30)
[2019-12-30] MEDS: IPRATROPIUM/ALBUTEROL 0.5-2.5 MG/3 ML AMPUL NEB SCH ×4 (01:22→20:40)
[2019-12-30] MEDS: METHYLPREDNISOLONE INJ 40 MG/1 ML SDV IV SCH ×3 (05:14→21:03)
[2019-12-30] MEDS: HEPARIN SOD (PORCINE) 5,000 UNIT/ML 1 ML VIAL SUBCUT SCH ×3 (05:14→21:02)
[2019-12-30 05:52] LABS: HEMATOCRIT 36.5 % (36.0-47.0); HEMOGLOBIN 12.4 g/dL (12.0-15.5); MEAN CORPUSCULAR HEMOGLOBIN 27.2 pg (27.0-33.4); MEAN CORPUSCULAR HGB CONC 33.9 g/dL (32.0-36.0); MEAN CORPUSCULAR VOLUME 80 fl (80-97); PLATELET COUNT 261 10^3/uL (150-450); RED BLOOD COUNT 4.56 10^6/uL (3.72-5.28)
[2019-12-30 05:54] LABS: WHITE BLOOD COUNT 9.9 10^3/uL (4.0-10.5)
[2019-12-30 06:09] LABS: ANION GAP 8 (5-19); BLOOD UREA NITROGEN 23 mg/dL (7-20); CALCIUM 9.9 mg/dL (8.4-10.2); CARBON DIOXIDE 28 mmol/L (22-30); CHLORIDE 102 mmol/L (98-107); GLUCOSE 147 mg/dL (75-110); POTASSIUM 4.9 mmol/L (3.6-5.0)
[2019-12-30] MEDS: AMLODIPINE BESYLATE 10 MG TABLET PO SCH (09:35)
[2019-12-30] MEDS: CYANOCOBALAMIN (VITAMIN B-12) 1,000 MCG TABLET PO SCH (09:35)
[2019-12-30] MEDS: THIAMINE HCL 100 MG TABLET PO SCH (09:35)
[2019-12-30] MEDS: FOLIC ACID 1 MG TABLET PO SCH (09:35)
[2019-12-30] MEDS: CARBAMAZEPINE 100 MG TAB.SR.12H PO SCH ×2 (09:35→22:45)
[2019-12-30] MEDS: GUAIFENESIN 600 MG TABLET.SA PO SCH ×2 (09:36→21:03)
[2019-12-30] MEDS ORDERED: THIAMINE HCL 100 MG PO SCH (10:00)
[2019-12-30] MEDS: ACETAMINOPHEN 325 MG TABLET PO PRN (13:21)
[2019-12-30] MEDS ORDERED: BUTALB/ACETAMINOPHEN/CAFFEINE 1 TAB EACH PO ONE (18:00)
--- NOTE | 2019-12-30 18:09 | PDOC PROGRESS REPORT ---
Subjective Progress Note for:: 12/30/19 Subjective:: Patient was seen on afternoon rounds. She was found resting in bed, comfortably, on BiPAP. She was sleeping but woke easily when I said her name. She tells me that she is feeling better today. She does continue to have shortness of breath and a productive cough that is worse from her baseline, although, significantly improved from time of presentation to the emergency department. She denies fever, chills, chest pain, palpitations, abdominal pain, nausea vomiting and diarrhea. She has no new questions or concerns. No concerns per nursing. Reason For Visit: ACUTE COPD EXACERBATION Physical Exam Vital Signs: Temp Pulse Resp BP Pulse Ox 98.3 F 97 19 128/45 H 97 12/30/19 00:12 12/30/19 14:47 12/30/19 14:47 12/30/19 00:12 12/30/19 14:47 Intake & Output 12/29/19 12/30/19 12/31/19 06:59 06:59 06:59 Intake Total 220 1050 Output Total 400 Balance -180 1050 Weight 100.6 kg General appearance: PRESENT: no acute distress, cooperative, morbidly obese, well-developed, well-nourished Head exam: PRESENT: atraumatic, normocephalic Eye exam: PRESENT: conjunctiva pink, EOMI, PERRLA. ABSENT: scleral icterus Mouth exam: PRESENT: moist, tongue midline Respiratory exam: PRESENT: clear to auscultation jett, decreased breath sounds - Bibasilar, prolonged expiratory phas, symmetrical, unlabored. ABSENT: rales, rhonchi, wheezes Cardiovascular exam: PRESENT: RRR. ABSENT: diastolic murmur, rubs, systolic murmur Pulses: PRESENT: normal dorsalis pedis pul Vascular exam: PRESENT: normal capillary refill Extremities exam: PRESENT: full ROM. ABSENT: calf tenderness, clubbing, pedal edema Musculoskeletal exam: PRESENT: ambulatory Neurological exam: PRESENT: alert, awake, oriented to person, oriented to place, oriented to time, oriented to situation, CN II-XII grossly intact. ABSENT: motor sensory deficit Psychiatric exam: PRESENT: appropriate affect, normal mood. ABSENT: homicidal ideation, suicidal ideation Skin exam: PRESENT: dry, intact, warm. ABSENT: cyanosis, rash Results Laboratory Results: 12/30/19 04:54 12/30/19 04:54 12/30/19 12/30/19 04:54 04:54 WBC 9.9 D RBC 4.56 Hgb 12.4 Hct 36.5 MCV 80 MCH 27.2 MCHC 33.9 RDW 16.0 H Plt Count 261 Sodium 137.8 Potassium 4.9 Chloride 102 Carbon Dioxide 28 Anion Gap 8 BUN 23 H Creatinine 1.32 H Est GFR ( Amer) 48 L Glucose 147 H Calcium 9.9 12/29/19 02:04 Troponin I < 0.012 NT-Pro-B Natriuret Pep 116 Impressions: Chest X-Ray 12/29/19 01:44 IMPRESSION: No evidence of active intrathoracic disease. Assessment and Plan - Diagnosis (1) COPD exacerbation Is this a current diagnosis for this admission?: Yes Plan: IPatient is admitted to the medical floor on continuous cardiac telemetry. She is placed on scheduled and as needed nebulizer treatments. Continue supplemental oxygen and BiPAP as needed to maintain saturations greater than 89%. Continue IV Solu-Medrol. Continue Mucinex twice daily. Singulair nightly. Encourage pulmonary toilet with incentive spirometer and flutter valve. (2) Acute on chronic respiratory failure with hypoxia and hypercapnia Is this a current diagnosis for this admission?: Yes Plan: She normally retains little bit of CO2. She said she uses Trilogy at home when she sleeps. Management as above. (3) Obesity (BMI 30-39.9) Is this a current diagnosis for this admission?: Yes Plan: Dietary discretion lifestyle modification encouraged. Patient is placed on a cardiac/consistent carb diet. (4) Obstructive sleep apnea Is this a current diagnosis for this admission?: Yes Plan: BiPAP nightly (5) Suspected COVID-19 virus infection Is this a current diagnosis for this admission?: Yes Plan: Ruled out. D-dimer 0.70 Ferritin 30.8 LDH 245 CRP 11 COVID-19 testing negative. - Time Time Spent with patient: 25-34 minutes Medications reviewed and adjusted accordingly: Yes Anticipated Discharge Disposition: Home, Self Care Anticipated Discharge Timeframe: within 72 hours - Inpatient Certification Based on my medical assessment, after consideration of the patient's comorbidities, presenting symptoms, or acuity I expect that the services needed warrant INPATIENT care.: Yes I certify that my determination is in accordance with my understanding of Medicare's requirements for reasonable and necessary INPATIENT services [42 CFR 412.3e].: Yes Medical Necessity: Failure to Improve With Outpatient Therapy, Need Close Monit oring Due to Risk of Patient Decompensation, Need For Continuous Telemetry Monitoring, Need for Nebulizer Therapy and Monitoring of Response, Risk of Complication if Not Cared For in Hospital
[2019-12-30] MEDS: NORMAL SALINE 1000 ML 1,000 ML IV PRN (20:30)
[2019-12-30] MEDS: MONTELUKAST SODIUM 10 MG TABLET PO SCH (21:03)
[2019-12-31] MEDS: IPRATROPIUM/ALBUTEROL 0.5-2.5 MG/3 ML AMPUL NEB SCH ×4 (02:50→23:57)
[2019-12-31] MEDS: HEPARIN SOD (PORCINE) 5,000 UNIT/ML 1 ML VIAL SUBCUT SCH ×3 (05:12→21:32)
[2019-12-31] MEDS: METHYLPREDNISOLONE INJ 40 MG/1 ML SDV IV SCH ×3 (05:12→21:32)
[2019-12-31 05:55] LABS: HEMATOCRIT 37.2 % (36.0-47.0); HEMOGLOBIN 12.3 g/dL (12.0-15.5); MEAN CORPUSCULAR HEMOGLOBIN 26.9 pg (27.0-33.4); MEAN CORPUSCULAR HGB CONC 33.1 g/dL (32.0-36.0); MEAN CORPUSCULAR VOLUME 81 fl (80-97); PLATELET COUNT 262 10^3/uL (150-450); RED BLOOD COUNT 4.57 10^6/uL (3.72-5.28); RED CELL DISTRIBUTION WIDTH 15.9 % (11.5-14.0); WHITE BLOOD COUNT 7.5 10^3/uL (4.0-10.5)
[2019-12-31 06:21] LABS: ANION GAP 6 (5-19); BLOOD UREA NITROGEN 30 mg/dL (7-20); CALCIUM 9.6 mg/dL (8.4-10.2); CARBON DIOXIDE 28 mmol/L (22-30); CHLORIDE 102 mmol/L (98-107); GLUCOSE 155 mg/dL (75-110); POTASSIUM 5.2 mmol/L (3.6-5.0)
[2019-12-31] MEDS ORDERED: LACTULOSE SYRUP 20 GM/30 ML UDCUP PO ONE (07:36)
[2019-12-31] MEDS: CARBAMAZEPINE 100 MG TAB.SR.12H PO SCH ×2 (09:36→21:32)
[2019-12-31] MEDS: GUAIFENESIN 600 MG TABLET.SA PO SCH ×2 (09:36→21:32)
[2019-12-31] MEDS: FOLIC ACID 1 MG TABLET PO SCH (09:37)
[2019-12-31] MEDS: AMLODIPINE BESYLATE 10 MG TABLET PO SCH (09:37)
[2019-12-31] MEDS: THIAMINE HCL 100 MG TABLET PO SCH (09:37)
[2019-12-31] MEDS: CYANOCOBALAMIN (VITAMIN B-12) 1,000 MCG TABLET PO SCH (09:37)
--- NOTE | 2019-12-31 12:12 | PDOC PROGRESS REPORT ---
Subjective Progress Note for:: 12/31/19 Subjective:: Patient was seen on afternoon rounds. She was found resting in bed, comfortably, on BiPAP. She was sleeping but woke easily when I said her name. She tells me that she is feeling better. Shortness of breath and a productive cough are much improved. Still increased work of breathing with minimal activity. She denies fever, chills, chest pain, palpitations, abdominal pain, nausea vomiting and diarrhea. She has no new questions or concerns. No concerns per nursing. Reason For Visit: ACUTE COPD EXACERBATION Physical Exam Vital Signs: Temp Pulse Resp BP Pulse Ox 97.7 F 56 L 16 130/60 H 99 12/31/19 08:10 12/31/19 08:43 12/31/19 08:43 12/31/19 08:10 12/31/19 08:43 Intake & Output 12/30/19 12/31/19 01/01/20 06:59 06:59 06:59 Intake Total 220 1570 Output Total 400 Balance -180 1570 Weight 101.1 kg General appearance: PRESENT: no acute distress, cooperative, morbidly obese, well-developed, well-nourished Head exam: PRESENT: atraumatic, normocephalic Eye exam: PRESENT: conjunctiva pink, EOMI, PERRLA. ABSENT: scleral icterus Mouth exam: PRESENT: moist, tongue midline Respiratory exam: PRESENT: clear to auscultation jett, symmetrical, unlabored, other - baseline oxygen. ABSENT: rales, rhonchi, wheezes Cardiovascular exam: PRESENT: RRR. ABSENT: diastolic murmur, rubs, systolic murmur Vascular exam: PRESENT: normal capillary refill Extremities exam: PRESENT: full ROM. ABSENT: calf tenderness, clubbing, pedal edema Neurological exam: PRESENT: alert, awake, oriented to person, oriented to place, oriented to time, oriented to situation, CN II-XII grossly intact. ABSENT: motor sensory deficit Psychiatric exam: PRESENT: appropriate affect, normal mood. ABSENT: homicidal ideation, suicidal ideation Skin exam: PRESENT: dry, intact, warm. ABSENT: cyanosis, rash Results Laboratory Results: 12/31/19 04:50 12/31/19 04:50 12/31/19 12/31/19 04:50 04:50 WBC 7.5 RBC 4.57 Hgb 12.3 Hct 37.2 MCV 81 MCH 26.9 L MCHC 33.1 RDW 15.9 H Plt Count 262 Sodium 136.3 L Potassium 5.2 H Chloride 102 Carbon Dioxide 28 Anion Gap 6 BUN 30 H Creatinine 1.28 H Est GFR ( Amer) 50 L Glucose 155 H Calcium 9.6 12/29/19 02:04 Troponin I < 0.012 NT-Pro-B Natriuret Pep 116 Impressions: Chest X-Ray 12/29/19 01:44 IMPRESSION: No evidence of active intrathoracic disease. Assessment and Plan - Diagnosis (1) COPD exacerbation Is this a current diagnosis for this admission?: Yes Plan: Patient is admitted to the medical floor on continuous cardiac telemetry. She is placed on scheduled and as needed nebulizer treatments. Decreased frequency of scheduled nebs. Continue supplemental oxygen and BiPAP as needed to maintain saturations greater than 89%. Continue IV Solu-Medrol; decreased dose today. Continue Mucinex twice daily. Singulair nightly. Encourage pulmonary toilet with incentive spirometer and flutter valve. (2) Acute on chronic respiratory failure with hypoxia and hypercapnia Is this a current diagnosis for this admission?: Yes Plan: She normally retains little bit of CO2. She said she uses Trilogy at home when she sleeps. Management as above. (3) Obesity (BMI 30-39.9) Is this a current diagnosis for this admission?: Yes Plan: Dietary discretion lifestyle modification encouraged. Patient is placed on a cardiac/consistent carb diet. (4) Obstructive sleep apnea Is this a current diagnosis for this admission?: Yes Plan: BiPAP nightly (5) Suspected COVID-19 virus infection Is this a current diagnosis for this admission?: Yes Plan: Ruled out. D-dimer 0.70 Ferritin 30.8 LDH 245 CRP 11 COVID-19 testing negative. (6) Hyperkalemia Is this a current diagnosis for this admission?: Yes Plan: Mild; 5.2 Lactulose x1 Follow up chemistry. - Time Time Spent with patient: 15-24 minutes Medications reviewed and adjusted accordingly: Yes Anticipated Discharge Disposition: Home, Self Care Anticipated Discharge Timeframe: within 48 hours
[2019-12-31] MEDS: ACETAMINOPHEN 325 MG TABLET PO PRN (14:24)
[2019-12-31] MEDS: NORMAL SALINE 1000 ML 1,000 ML IV PRN (20:12)
[2019-12-31] MEDS: MONTELUKAST SODIUM 10 MG TABLET PO SCH (21:32)
[2020-01-01] MEDS: ACETAMINOPHEN 325 MG TABLET PO PRN (01:41)
[2020-01-01] MEDS: METHYLPREDNISOLONE INJ 40 MG/1 ML SDV IV SCH ×2 (05:08→14:35)
[2020-01-01] MEDS: HEPARIN SOD (PORCINE) 5,000 UNIT/ML 1 ML VIAL SUBCUT SCH ×3 (05:09→21:09)
[2020-01-01 06:13] LABS: ANION GAP 5 (5-19); BLOOD UREA NITROGEN 31 mg/dL (7-20); CALCIUM 9.1 mg/dL (8.4-10.2); CARBON DIOXIDE 30 mmol/L (22-30); CHLORIDE 100 mmol/L (98-107); GLUCOSE 130 mg/dL (75-110)
[2020-01-01] MEDS: IPRATROPIUM/ALBUTEROL 0.5-2.5 MG/3 ML AMPUL NEB SCH ×2 (08:14→20:05)
[2020-01-01] MEDS: GUAIFENESIN 600 MG TABLET.SA PO SCH ×2 (09:38→21:09)
[2020-01-01] MEDS: CARBAMAZEPINE 100 MG TAB.SR.12H PO SCH ×3 (09:39→21:17)
[2020-01-01] MEDS: CYANOCOBALAMIN (VITAMIN B-12) 1,000 MCG TABLET PO SCH (09:39)
[2020-01-01] MEDS: THIAMINE HCL 100 MG TABLET PO SCH (09:39)
[2020-01-01] MEDS: FOLIC ACID 1 MG TABLET PO SCH (09:39)
[2020-01-01] MEDS: AMLODIPINE BESYLATE 10 MG TABLET PO SCH (09:39)
[2020-01-01] MEDS ORDERED: KETOROLAC TROMETHAMINE INJ/PF 30 MG/1 ML SDV IV ONE (10:00)
[2020-01-01] MEDS ORDERED: FLUTICASONE NASAL SPRAY 50 MCG/SPRY 120 SPRAY/16 GM NASL ONE (10:30)
--- NOTE | 2020-01-01 15:18 | PDOC PROGRESS REPORT ---
Subjective Progress Note for:: 01/01/20 Subjective:: Patient was seen on morning rounds. She was found resting in bed, comfortably, on her baseline oxygen and BiPAP requirements. She tells me that she is feeling better. Shortness of breath and a cough have resolved. Reports continued frontal Headache; questions sinusitis. She has also noted that her Tegretrol dose was less than she takes at home. She denies fever, chills, chest pain, palpitations, abdominal pain, nausea vomiting and diarrhea. Requests referral to ENT at discharge for chronic sinusitis discomfort. Otherwise, she has no new questions or concerns. No concerns per nursing. Reason For Visit: ACUTE COPD EXACERBATION Physical Exam Vital Signs: Temp Pulse Resp BP Pulse Ox 97.4 F 50 L 18 172/61 H 99 01/01/20 11:20 01/01/20 11:20 01/01/20 11:20 01/01/20 11:20 01/01/20 11:20 Intake & Output 12/31/19 01/01/20 01/02/20 06:59 06:59 06:59 Intake Total 2570 1050 Balance 2570 1050 Weight 101.1 kg 99.6 kg General appearance: PRESENT: no acute distress, cooperative, obese, well-developed, well-nourished Head exam: PRESENT: atraumatic, normocephalic Eye exam: PRESENT: conjunctiva pink, EOMI, PERRLA. ABSENT: scleral icterus Mouth exam: PRESENT: moist, tongue midline Respiratory exam: PRESENT: clear to auscultation jett, prolonged expiratory phas, symmetrical, unlabored, other - baseline oxygen. ABSENT: rales, rhonchi, wheezes Cardiovascular exam: PRESENT: RRR. ABSENT: diastolic murmur, rubs, systolic murmur Pulses: PRESENT: normal dorsalis pedis pul Vascular exam: PRESENT: normal capillary refill Extremities exam: PRESENT: full ROM. ABSENT: calf tenderness, clubbing, pedal edema Musculoskeletal exam: PRESENT: ambulatory Neurological exam: PRESENT: alert, awake, oriented to person, oriented to place, oriented to time, oriented to situation, CN II-XII grossly intact. ABSENT: motor sensory deficit Psychiatric exam: PRESENT: appropriate affect, normal mood. ABSENT: homicidal ideation, suicidal ideation Skin exam: PRESENT: dry, intact, warm. ABSENT: cyanosis, rash Results Laboratory Results: 12/31/19 04:50 01/01/20 04:36 01/01/20 04:36 Sodium 135.2 L Potassium 5.0 Chloride 100 Carbon Dioxide 30 Anion Gap 5 BUN 31 H Creatinine 1.08 Est GFR ( Amer) > 60 Glucose 130 H Calcium 9.1 12/29/19 02:04 Troponin I < 0.012 NT-Pro-B Natriuret Pep 116 Impressions: Chest X-Ray 12/29/19 01:44 IMPRESSION: No evidence of active intrathoracic disease. Assessment and Plan - Diagnosis (1) COPD exacerbation Is this a current diagnosis for this admission?: Yes Plan: Improved; now maintaining oxygen saturations on baseline supplemental O2 while at rest. Patient is admitted to the medical floor on continuous cardiac telemetry. She is placed on scheduled and as needed nebulizer treatments. Decreased frequency of scheduled nebs again today. Continue supplemental oxygen and BiPAP as needed to maintain saturations greater than 89%. Continue IV Solu-Medrol; transitioned to p.o. prednisone today. Continue Mucinex twice daily. Singulair nightly. Encourage pulmonary toilet with incentive spirometer and flutter valve. (2) Acute on chronic respiratory failure with hypoxia and hypercapnia Is this a current diagnosis for this admission?: Yes Plan: She normally retains little bit of CO2. She said she uses Trilogy at home when she sleeps. Management as above. (3) Obesity (BMI 30-39.9) Is this a current diagnosis for this admission?: Yes Plan: Dietary discretion lifestyle modification encouraged. Patient is placed on a cardiac/consistent carb diet. (4) Obstructive sleep apnea Is this a current diagnosis for this admission?: Yes Plan: BiPAP nightly (5) Hyperkalemia Is this a current diagnosis for this admission?: Yes Plan: Resolved. Mild; 5.2-> 5.0 Lactulose x1 Follow up chemistry. (6) Suspected COVID-19 virus infection Is this a current diagnosis for this admission?: Yes Plan: Ruled out. D-dimer 0.70 Ferritin 30.8 LDH 245 CRP 11 COVID-19 testing negative. (7) Headache Qualifiers: Headache type: unspecified Headache chronicity pattern: unspecified pattern Intractability: not intractable Qualified Code(s): R51 - Headache Is this a current diagnosis for this admission?: Yes Plan: Persistent frontal headache described as "pressure," worsens with movement, cough, and IS. Reports history of frequent sinusitis; requesting ENT referral at discharge. Will obtain Sinus CT. Start Flonase. Will trial dose of Toradol. No relief with Fioricet yesterday Resume home dose Tregetol. (8) Neck fullness Is this a current diagnosis for this admission?: Yes Plan: Patient reports neck fullness that she believes is causing her to have the sensation of dyspnea. CT soft tissue pending. We will check TSH with a.m. lab work. - Time Time Spent with patient: 35 or more minutes Anticipated Discharge Disposition: Home, Self Care Anticipated Discharge Timeframe: within 24 hours
--- NOTE | 2020-01-01 20:20 | RADIOLOGY REPORT (SQ) ---
EXAM DESCRIPTION: CT MAXILLOFACIAL WITHOUT IV CONTRAST COMPLETED DATE/TME: 01/01/2020 00:00 CLINICAL HISTORY: 69 years, Female, frontal headache COMPARISON: None. TECHNIQUE: Noncontrast CT face was acquired. Coronal and sagittal reformations were created. Images stored on PACS. All CT scanners at this facility use dose modulation, iterative reconstruction, and/or weight based dosing when appropriate to reduce radiation dose to as low as reasonably achievable (ALARA). [facility]: Dose Right [facility]: CareDose [facility]: Dose Right [facility]: Teradose 4D [facility]: Smart Technologies LIMITATIONS: None. FINDINGS: Mandible is intact though there is severe left temporomandibular joint arthrosis. Medial and lateral pterygoid plates are intact. The zygomatic arches are intact. The nasal bone is intact. Nasal septum is minimally deviated towards the right. Maxilla and nasal spine appear intact. Paranasal sinuses and mastoid air cells are clear. Middle ear cavities also appear clear. Calcifications are evident about the parasellar carotid and vertebral arteries. Limited evaluation of the brain parenchyma reveals mild generalized atrophy an mild chronic microvascular ischemic change. Globes and orbits show no suspicious abnormality. Bilateral parotid and semitubular glands appear normal. No suspicious deep cervical lymphadenopathy is appreciated. Calcifications are evident about the carotid bulbs/proximal ICAs bilaterally. IMPRESSION: No acute abnormality within the face. TECHNICAL DOCUMENTATION: Quality ID # 436: Final reports with documentation of one or more dose reduction techniques (e.g., Automated exposure control, adjustment of the mA and/or kV according to patient size, use of iterative reconstruction technique) copyright 2011 [employer]- All Rights Reserved
--- NOTE | 2020-01-01 20:23 | RADIOLOGY REPORT (SQ) ---
EXAM DESCRIPTION: CT NECK CHEST WITHOUT IV CONTRAST COMPLETED DATE/TME: 01/01/2020 00:00 CLINICAL HISTORY: 69 years, Female, neck fullness COMPARISON: None. TECHNIQUE: Noncontrast CT of the neck was acquired. Coronal and sagittal reformations were created. Images stored on PACS. All CT scanners at this facility use dose modulation, iterative reconstruction, and/or weight based dosing when appropriate to reduce radiation dose to as low as reasonably achievable (ALARA). [facility]: Dose Right [facility]: CareDose [facility]: Dose Right [facility]: Teradose 4D [facility]: [employer] LIMITATIONS: None. FINDINGS: Limited evaluation of the lungs reveals no suspicious finding. Calcifications are evident about the thoracic aortic arch and origins of the great vessels. The left lobe of the thyroid gland appears normal. Right lobe of the thyroid gland contains a multilobulated low-density lesion measuring 2.5 x 1.7 cm in size. Hypopharynx, oropharynx, and nasopharynx show no suspicious abnormality. Bilateral parotid and submandibular glands appear normal. No suspicious deep cervical lymphadenopathy is appreciated. Calcifications are evident about the bilateral carotid bulbs extending proximal ICAs. Limited assessment of the brain parenchyma reveals mild chronic microvascular ischemic change and generalized atrophy. Additional calcifications are noted about the parasellar carotid arteries and vertebral arteries. Globes and orbits show no suspicious finding. Paranasal sinuses and mastoid air cells are clear. Bone windows show moderate multilevel cervical spondylosis, designated by intervertebral space narrowing, hypertrophic endplate spurring, and facet hypertrophy. In addition, there is severe left temporomandibular joint arthrosis. IMPRESSION: No acute abnormality within the neck. 2.5 cm incidental thyroid nodule. Recommend thyroid US. Reference: J Am Rio Radiol. 2015 Jul;12(2): 143-50 TECHNICAL DOCUMENTATION: Quality ID # 436: Final reports with documentation of one or more dose reduction techniques (e.g., Automated exposure control, adjustment of the mA and/or kV according to patient size, use of iterative reconstruction technique) copyright 2011 [employer]- All Rights Reserved
[2020-01-01] MEDS: MONTELUKAST SODIUM 10 MG TABLET PO SCH (21:09)
[2020-01-01] MEDS ORDERED: HYDRALAZINE HCL INJ/PF 20 MG/1 ML SDV IV PRN (21:26)
[2020-01-02 05:35] LABS: ANION GAP 7 (5-19); BLOOD UREA NITROGEN 34 mg/dL (7-20); CALCIUM 9.8 mg/dL (8.4-10.2); CARBON DIOXIDE 31 mmol/L (22-30); CHLORIDE 99 mmol/L (98-107); GLUCOSE 91 mg/dL (75-110); POTASSIUM 4.1 mmol/L (3.6-5.0)
[2020-01-02] MEDS: HEPARIN SOD (PORCINE) 5,000 UNIT/ML 1 ML VIAL SUBCUT SCH ×2 (06:27→14:36)
[2020-01-02] MEDS: IPRATROPIUM/ALBUTEROL 0.5-2.5 MG/3 ML AMPUL NEB SCH (08:30)
[2020-01-02] MEDS: FOLIC ACID 1 MG TABLET PO SCH (09:00)
[2020-01-02] MEDS: AMLODIPINE BESYLATE 10 MG TABLET PO SCH (09:01)
[2020-01-02] MEDS: THIAMINE HCL 100 MG TABLET PO SCH (09:01)
[2020-01-02] MEDS: GUAIFENESIN 600 MG TABLET.SA PO SCH (09:01)
[2020-01-02] MEDS: CARBAMAZEPINE 100 MG TAB.SR.12H PO SCH (09:01)
[2020-01-02] MEDS: ACETAMINOPHEN 325 MG TABLET PO PRN (09:01)
[2020-01-02] MEDS: CYANOCOBALAMIN (VITAMIN B-12) 1,000 MCG TABLET PO SCH (09:01)
[2020-01-02] MEDS ORDERED: PREDNISONE 20 MG TABLET PO SCH (10:00)
[2020-01-02] MEDS ORDERED: FLUTICASONE NASAL SPRAY 50 MCG/SPRY 120 SPRAY/16 GM NASL SCH (10:00)
[2020-01-02 15:10] VITALS: BP 171/65
[2020-01-03] MEDS ORDERED: LISINOPRIL 10 MG TABLET PO SCH (10:00)
--- NOTE | 2020-01-05 12:54 | PDOC DISCHARGE SUMMARY ---
Impression - Admit/DC Date/PCP Admission Date/Primary Care Provider: 12/29/19 06:05 GUERITA GODOY MD Discharge Date: 01/02/20 - Discharge Diagnosis (1) COPD exacerbation Is this a current diagnosis for this admission?: Yes (2) Acute on chronic respiratory failure with hypoxia and hypercapnia Is this a current diagnosis for this admission?: Yes (3) Obesity (BMI 30-39.9) Is this a current diagnosis for this admission?: Yes (4) Obstructive sleep apnea Is this a current diagnosis for this admission?: Yes (5) Hyperkalemia Is this a current diagnosis for this admission?: Yes (6) Suspected COVID-19 virus infection Is this a current diagnosis for this admission?: Yes (7) Headache Is this a current diagnosis for this admission?: Yes (8) Neck fullness Is this a current diagnosis for this admission?: Yes (9) Thyroid nodule Is this a current diagnosis for this admission?: Yes - Additional Information Discharge Diet: Cardiac, Diabetic Discharge Activity: Activity As Tolerated, Balance Activity w/Rest Referrals: GUERITA GODOY MD [Primary Care Provider] - Follow up as needed ISIDRO RIVERA MD [ACTIVE STAFF] - (Frequent sinus infections. Thyroid nodule.) Prescriptions: Prednisone [Deltasone 20 mg Tablet] 60 mg PO DAILY #12 tablet Guaifenesin [Mucinex Sr 600 mg Tablet.sa] 600 mg PO Q12 #14 tablet.sa Home Medications: Albuterol Sulfate [Albuterol Sulfate Hfa] 2 puff IH Q4HP PRN 07/01/19 Amlodipine Besylate [Norvasc 10 mg Tablet] 10 mg PO DAILY 07/01/19 Cholecalciferol (Vitamin D3) [Vitamin D3 1000 Unit Tablet] 5,000 unit PO DAILY 07/01/19 Ipratropium Dixon [Atrovent 0.02% Neb 0.5 mg/2.5 ml Ampul] 0.5 mg NEB ASDIR PRN 07/01/19 Montelukast Sodium [Singulair 10 mg Tablet] 10 mg PO QHS 07/01/19 Arformoterol Tartrate [Brovana Inhalation Solution 15 mcg/2 mL] 1 vial NEB Q12H 12/29/19 Budesonide [Pulmicort] 1 vial NEB Q12H 12/29/19 Carbamazepine [Tegretol Xr] 200 mg PO Q12 12/29/19 Cyanocobalamin (Vitamin B-12) [Vitamin B-12] 1,000 mcg PO DAILY 12/29/19 Diazepam [Valium 2 mg Tablet] 1 - 2 tab PO QHS 12/29/19 Folic Acid 1 mg PO DAILY 12/29/19 Acetaminophen [Tylenol 325 mg Tablet] 650 mg PO Q4HP PRN tablet 01/02/20 Guaifenesin [Mucinex Sr 600 mg Tablet.sa] 600 mg PO Q12 #14 tablet.sa 01/02/20 Prednisone [Deltasone 20 mg Tablet] 60 mg PO DAILY #12 tablet 01/02/20 Thiamine HCl [Thiamine 100 mg Tablet] 100 mg PO DAILY tablet 01/02/20 History of Present Illiness History of Present Illness: Per H&P by Dr. Morris: GIACOMO CARRILLO is a 69 year old female with a history of oxygen dependent COPD who presents with 1 week of worsening shortness of breath. She is not had any fevers. She is not had any productive cough. She said it was initially responding to bronchodilators and was triggered by small exertion but now she is gotten to where she is getting short of breath at rest. She said when it was not improved substantially by bronchodilators she decided to come to the hospital. She was bumped up to 4 L per nasal cannula up from her typical 2.5 L. Chest x-ray was negative. Hospital Course Hospital Course: (1) COPD exacerbation REsolved; now maintaining oxygen saturations on baseline supplemental O2. Patient was admitted to the medical floor on continuous cardiac telemetry. She was supported with supplemental oxygen, BiPAP, scheduled and as needed nebulizer treatments, steroid therapy, Mucinex, Singulair, and aggressive pulmonary toilet. After symptoms resolved, her frequency of nebulizer treatments was decreased and Solu-Medrol was weaned to p.o. prednisone. (2) Acute on chronic respiratory failure with hypoxia and hypercapnia Acute exacerbation has resolved She normally retains little bit of CO2. She said she uses Trilogy at home when she sleeps. Management as above. (3) Obesity (BMI 30-39.9) Dietary discretion lifestyle modification encouraged. Patient was placed on a cardiac/consistent carb diet. (4) Obstructive sleep apnea BiPAP nightly; resume trilogy device upon return home. (5) Hyperkalemia Resolved. Mild; 5.2-> 5.0 Lactulose x1 (6) Suspected COVID-19 virus infection Ruled out. D-dimer 0.70 Ferritin 30.8 LDH 245 CRP 11 COVID-19 testing negative. (7) Headache Resolved. Persistent frontal headache described as "pressure," worsens with movement, cough, and IS. Reports history of frequent sinusitis; requesting ENT referral at discharge. CT facial bones was negative for acute findings. Start Flonase. Resume home dose Tregetol. (8) Neck fullness Patient reports neck fullness that she believes is causing her to have the sensation of dyspnea. CT soft tissue shows a 2.5 x 1.7 centimeter low-density lesion to the right lobe of the thyroid gland. Patient reports that she has been told that she had a thyroid nodule in the past. Cannot recall recommendations for follow-up. TSH 3.02. She is provided an outpatient referral to ENT for follow-up. Physical Exam Vital Signs: Temp Pulse Resp BP Pulse Ox 97.6 F 55 L 20 171/65 H 97 01/02/20 15:08 01/02/20 15:08 01/02/20 15:08 01/02/20 15:08 01/02/20 15:08 General appearance: PRESENT: no acute distress, cooperative, morbidly obese, well-developed, well-nourished Head exam: PRESENT: atraumatic, normocephalic Eye exam: PRESENT: conjunctiva pink, EOMI, PERRLA. ABSENT: scleral icterus Mouth exam: PRESENT: moist, tongue midline Respiratory exam: PRESENT: clear to auscultation jett, symmetrical, unlabored. ABSENT: rales, rhonchi, wheezes Cardiovascular exam: PRESENT: RRR. ABSENT: diastolic murmur, rubs, systolic m urmur Pulses: PRESENT: normal dorsalis pedis pul Vascular exam: PRESENT: normal capillary refill GI/Abdominal exam: PRESENT: normal bowel sounds, soft. ABSENT: distended, guarding, mass, organolmegaly, rebound, tenderness Rectal exam: PRESENT: deferred Extremities exam: PRESENT: full ROM. ABSENT: calf tenderness, clubbing, pedal edema Musculoskeletal exam: PRESENT: ambulatory Neurological exam: PRESENT: alert, awake, oriented to person, oriented to place, oriented to time, oriented to situation, CN II-XII grossly intact. ABSENT: motor sensory deficit Psychiatric exam: PRESENT: appropriate affect, normal mood. ABSENT: homicidal ideation, suicidal ideation Skin exam: PRESENT: dry, intact, warm. ABSENT: cyanosis, rash Results Laboratory Results: WBC 7.5 10^3/uL (4.0-10.5) 12/31/19 04:50 RBC 4.57 10^6/uL (3.72-5.28) 12/31/19 04:50 Hgb 12.3 g/dL (12.0-15.5) 12/31/19 04:50 Hct 37.2 % (36.0-47.0) 12/31/19 04:50 MCV 81 fl (80-97) 12/31/19 04:50 MCH 26.9 pg (27.0-33.4) L 12/31/19 04:50 MCHC 33.1 g/dL (32.0-36.0) 12/31/19 04:50 RDW 15.9 % (11.5-14.0) H 12/31/19 04:50 Plt Count 262 10^3/uL (150-450) 12/31/19 04:50 Lymph % (Auto) 10.4 % (13-45) L 12/29/19 02:04 Russell % (Auto) 2.9 % (3-13) L 12/29/19 02:04 Eos % (Auto) 5.2 % (0-6) 12/29/19 02:04 Baso % (Auto) 0.6 % (0-2) 12/29/19 02:04 Absolute Neuts (auto) 3.4 10^3/uL (1.7-8.2) 12/29/19 02:04 Absolute Lymphs (auto) 0.4 10^3/uL (0.5-4.7) L 12/29/19 02:04 Absolute Monos (auto) 0.1 10^3/uL (0.1-1.4) 12/29/19 02:04 Absolute Eos (auto) 0.2 10^3/uL (0.0-0.6) 12/29/19 02:04 Absolute Basos (auto) 0.0 10^3/uL (0.0-0.2) 12/29/19 02:04 Seg Neutrophils % 80.9 % (42-78) H 12/29/19 02:04 D-Dimer 0.70 ug/mL (0.00-0.50) H 12/29/19 16:03 Carbonic Acid 1.74 mmol/L (1.05-1.35) H 12/29/19 16:03 HCO3/H2CO3 Ratio 16:1 12/29/19 16:03 ABG pH 7.32 (7.35-7.45) L 12/29/19 16:03 ABG pCO2 57.9 mmHg (35-45) H 12/29/19 16:03 ABG pO2 80.9 mmHg (80-100) 12/29/19 16:03 ABG HCO3 29.1 mmol/L (20-24) H 12/29/19 16:03 ABG Total CO2 30.9 mmol/L (21-25) H 12/29/19 16:03 ABG O2 Saturation 94.8 % (94-98) 12/29/19 16:03 ABG Base Excess 1.6 mmol/L 12/29/19 16:03 VBG pH 7.29 (7.30-7.42) L 12/29/19 04:32 VBG pCO2 64.3 mmHg (35-63) H 12/29/19 04:32 VBG HCO3 29.9 mmol/L (20-32) 12/29/19 04:32 VBG Base Excess 1.6 mmol/L 12/29/19 04:32 FiO2 3% 12/29/19 16:03 Sodium 137.1 mmol/L (137-145) 01/02/20 04:31 Potassium 4.1 mmol/L (3.6-5.0) 01/02/20 04:31 Chloride 99 mmol/L (98-107) 01/02/20 04:31 Carbon Dioxide 31 mmol/L (22-30) H 01/02/20 04:31 Anion Gap 7 (5-19) 01/02/20 04:31 BUN 34 mg/dL (7-20) H 01/02/20 04:31 Creatinine 1.08 mg/dL (0.52-1.25) 01/02/20 04:31 Est GFR ( Amer) > 60 (>60) 01/02/20 04:31 Est GFR (MDRD) Non-Af 50 (>60) L 01/02/20 04:31 Glucose 91 mg/dL (75-110) 01/02/20 04:31 Calcium 9.8 mg/dL (8.4-10.2) 01/02/20 04:31 Ferritin 30.80 ng/mL (11.1-264.0) 12/29/19 16:03 Total Bilirubin 0.4 mg/dL (0.2-1.3) 12/29/19 02:04 Direct Bilirubin 0.1 mg/dL (0.0-0.4) 12/29/19 02:04 Neonat Total Bilirubin Not Reportable 12/29/19 02:04 Neonat Direct Bilirubin Not Reportable 12/29/19 02:04 Neonat Indirect Bili Not Reportable 12/29/19 02:04 AST 32 U/L (14-36) 12/29/19 02:04 ALT 43 U/L (<35) H 12/29/19 02:04 Alkaline Phosphatase 57 U/L (38-126) 12/29/19 02:04 Lactate Dehydrogenase 245 U/L (120-246) 12/29/19 16:03 Troponin I < 0.012 ng/mL 12/29/19 02:04 C-Reactive Protein 11.0 mg/L (<10.0) H 12/29/19 16:03 NT-Pro-B Natriuret Pep 116 pg/mL (<125) 12/29/19 02:04 Total Protein 7.4 g/dL (6.3-8.2) 12/29/19 02:04 Albumin 4.4 g/dL (3.5-5.0) 12/29/19 02:04 TSH 3.02 uIU/mL (0.47-4.68) 01/02/20 04:31 COVID-19 Source NASOPHARYNGEAL 12/29/19 04:27 COVID-19 (KRISTY) NOT DETECTED 12/29/19 04:27 12/29/19 02:04 Troponin I < 0.012 NT-Pro-B Natriuret Pep 116 Impressions: Chest X-Ray 12/29/19 01:44 IMPRESSION: No evidence of active intrathoracic disease. Facial Bones CT 01/01/20 00:00 IMPRESSION: No acute abnormality within the face. TECHNICAL DOCUMENTATION: Quality ID # 436: Final reports with documentation of one or more dose reduction techniques (e.g., Automated exposure control, adjustment of the mA and/or kV according to patient size, use of iterative reconstruction technique) copyright 2010 [employer]- All Rights Reserved Soft Tissue Neck CT 01/01/20 00:00 IMPRESSION: No acute abnormality within the neck. 2.5 cm incidental thyroid nodule. Recommend thyroid US. Reference: J Am Rio Radiol. 2015 Jul;12(2): 143-50 TECHNICAL DOCUMENTATION: Quality ID # 436: Final reports with documentation of one or more dose reduction techniques (e.g., Automated exposure control, adjustment of the mA and/or kV according to patient size, use of iterative reconstruction technique) copyright 2010 [employer]- All Rights Reserved Plan Plan of Treatment: The patient is discharged home in stable condition. She has declined home health services. She is advised to follow-up with her primary care provider within 1 week. She has been provided a referral to Dr. Rivera, ENT, follow-up in the earliest available appointment. Recommend she take her medications as prescribed. Continue to use her supplemental oxygen and trilogy machine as previously instructed. Avoid known respiratory triggers. Return to the emergency department as needed for concerns. Time Spent: Greater than 30 Minutes Stroke Is this a Stroke Patient?: No Acute Heart Failure - Is this a Heart Failure Patient?: No
== END 2020-01-02 16:35 | disposition home or self-care (01) | DRG 189 ==
LOC: ER 23:52 → EH 12-29 06:05 → 3N 12-29 20:54 → 4N 12-31 15:45
PROVIDERS: ADMIT Family Medicine; ATTEND Registered Nurse
PROC: 5A09357 Assistance with Respiratory Ventilation, Less than 24 Consecutive Hours, Continuous Positive Airway Pressure (ICD-10-PCS; principal; 2019-12-29)
DX: J96.21 Acute and chronic respiratory failure with hypoxia (principal); J44.1 Chronic obstructive pulmonary disease with (acute) exacerbation; J96.22 Acute and chronic respiratory failure with hypercapnia; E78.5 Hyperlipidemia, unspecified; I10 Essential (primary) hypertension; Z82.49 Family history of ischemic heart disease and other diseases of the circulatory system; Z88.8 Allergy status to other drugs, medicaments and biological substances; E66.9 Obesity, unspecified; Z20.828 Contact with and (suspected) exposure to other viral communicable diseases; G47.33 Obstructive sleep apnea (adult) (pediatric); E87.5 Hyperkalemia; R51 Headache; Z99.81 Dependence on supplemental oxygen; Z79.899 Other long term (current) drug therapy; Z90.49 Acquired absence of other specified parts of digestive tract
CPT/HCPCS: 36415; 70486; 70490; 71045; 80048; 80053; 82728; 82803; 83615; 83880; 84443; 84484; 85025; 85027; 85379; 86140; 87635; 93005; 93010; 94640; 94660; 94667; 94668; 94799; 99285; C9803; J0360; J1644; J1885; J2920; J3490; J7030; J7512

== ENCOUNTER 2020-02-12 21:20 | Emergency (ER) | payer MEDICARE, MEDICAID ==
[2020-02-12 21:59] LABS: ABSOLUTE EOSINOPHILS # (AUTO) 0.2 10^3/uL (0.0-0.6); ABSOLUTE LYMPHOCYTES (AUTO) 1.1 10^3/uL (0.5-4.7); ABSOLUTE MONOCYTES (AUTO) 0.5 10^3/uL (0.1-1.4); ABSOLUTE NEUT (AUTO) 3.4 10^3/uL (1.7-8.2); BASOPHILS % (AUTO) 0.7 % (0-2); EOSINOPHILS % (AUTO) 3.9 % (0-6); HEMATOCRIT 40.8 % (36.0-47.0); HEMOGLOBIN 13.6 g/dL (12.0-15.5); LYMPHOCYTES % (AUTO) 20.4 % (13-45); MEAN CORPUSCULAR HEMOGLOBIN 27.6 pg (27.0-33.4); MEAN CORPUSCULAR HGB CONC 33.3 g/dL (32.0-36.0); MEAN CORPUSCULAR VOLUME 83 fl (80-97); MONOCYTES % (AUTO) 9.9 % (3-13); PLATELET COUNT 248 10^3/uL (150-450); RED BLOOD COUNT 4.93 10^6/uL (3.72-5.28); RED CELL DISTRIBUTION WIDTH 16.5 % (11.5-14.0); SEGMENTED NEUTROPHILS % (AUTO) 65.1 % (42-78); TOTAL CELLS COUNTED % (AUTO) 100 %; WHITE BLOOD COUNT 5.2 10^3/uL (4.0-10.5)
[2020-02-12 22:09] LABS: ALBUMIN 4.7 g/dL (3.5-5.0); ALKALINE PHOSPHATASE 64 U/L (38-126); ANION GAP 6 (5-19); ASPARTATE AMINO TRANSFERASE 32 U/L (14-36); BILIRUBIN,DIRECT 0.3 mg/dL (0.0-0.4); BILIRUBIN,TOTAL 0.3 mg/dL (0.2-1.3); BLOOD UREA NITROGEN 14 mg/dL (7-20); CALCIUM 9.4 mg/dL (8.4-10.2); CARBON DIOXIDE 31 mmol/L (22-30); CHLORIDE 103 mmol/L (98-107); CREATINE KINASE 161 U/L (30-135); GLUCOSE 172 mg/dL (75-110); POTASSIUM 4.2 mmol/L (3.6-5.0); TOTAL PROTEIN 7.4 g/dL (6.3-8.2)
[2020-02-12 22:21] LABS: CREATINE KINASE MB 2.81 ng/mL (<4.55)
[2020-02-12 22:37] LABS: TROPONIN I < 0.012 ng/mL
--- NOTE | 2020-02-12 22:37 | RADIOLOGY REPORT (SQ) ---
EXAM DESCRIPTION: X-RAY CHEST- One View CLINICAL HISTORY: Shortness of breath COMPARISON: December 29, 2019 TECHNIQUE: Single view of the chest. FINDINGS: There are overlying EKG leads. Lungs are grossly clear. The pulmonary vascularity is normal. The cardiomediastinal silhouette is normal in size. There are atherosclerotic vascular calcifications. Osseous structures are stable. IMPRESSION: No acute lung parenchymal findings.
[2020-02-12] MEDS ORDERED: IPRATROPIUM/ALBUTEROL 0.5-2.5 MG/3 ML AMPUL NEB ONE (22:59)
--- NOTE | 2020-02-12 23:05 | ER Document Report ---
ED General - General Chief Complaint: Shortness Of Breath Stated Complaint: RESPIRATORY DISTRESS Time Seen by Provider: 02/12/20 22:39 Primary Care Provider: GUERITA GODOY MD [Primary Care Provider] - Follow up as needed TRAVEL OUTSIDE OF THE [place] IN LAST 30 DAYS: No - HPI Onset: Other - Symptoms started a week ago Onset/Duration: Gradual Quality of pain: No pain Severity: None Pain Level: Denies Context: This is a 69-year-old female with a history of COPD who presents complaining of shortness of breath that has been occurring for the past week. Patient states her symptoms have gotten progressively worse over the past week to the point where she had more difficulty breathing this evening and called EMS. Patient denies any recent hospital COVID exposures. Patient denies loss of sense of taste or sense of smell. EMS reportedly gave the patient 125 mg Solu-Medrol IV and 3 KARLIE treatments. Patient was placed on CPAP with a O2 sat of 99%. The O2 sat on C1 prior to CPAP is not on the EMS run sheet. Patient denies chest pain or any other type of pain patient states her pain is 0 on a scale of 0-5. Patient states the shortness of breath is worsened with exertion and is improving since she has been put on CPAP and subsequently the BiPAP here in the emergency department. Patient is on home O2 at 2.5 L. Patient states this feels like this is one of her typical COPD exacerbations. Associated symptoms: Shortness of breath. denies: Chest pain, Fever Exacerbated by: Other - Exertion Relieved by: Other - EMS and ED interventions Similar symptoms previously: Yes - Related Data Allergies/Adverse Reactions: hydralazine Adverse Reaction (Mild, Verified 01/02/20 10:42) Tachycardia fluticasone [From Advair Diskus] Adverse Reaction (Verified 12/29/19 07:48) STOMACH CRAMPS salmeterol [From Advair Diskus] Adverse Reaction (Verified 12/29/19 07:48) STOMACH CRAMPS Past Medical History - General Information source: Patient, Relative, Emergency Med Personnel - Social History Smoking Status: Never Smoker Chew tobacco use (# tins/day): No Frequency of alcohol use: None Drug Abuse: None Family History: Hypertension, Reviewed & Not Pertinent Patient has homicidal ideation: No - Past Medical History Cardiac Medical History: Reports: Hx Hypercholesterolemia, Hx Hypertension Denies: Hx Heart Attack Pulmonary Medical History: Reports: Hx Asthma, Hx COPD, Hx Pneumonia, Hx Sleep Apnea Denies: Hx Bronchitis Neurological Medical History: Denies: Hx Cerebrovascular Accident, Hx Seizures Renal/ Medical History: Denies: Hx Peritoneal Dialysis Musculoskeletal Medical History: Denies Hx Arthritis Psychiatric Medical History: Denies: Hx Depression Past Surgical History: Reports: Hx Cholecystectomy, Hx Orthopedic Surgery - left ankle, Hx Tonsillectomy - Immunizations Hx Diphtheria, Pertussis, Tetanus Vaccination: - UNSURE Hx Pneumococcal Vaccination: 06/02/15 Review of Systems - Review of Systems Constitutional: No symptoms reported EENT: No symptoms reported Cardiovascular: denies: Chest pain Respiratory: Short of breath Gastrointestinal: No symptoms reported Genitourinary: No symptoms reported Female Genitourinary: No symptoms reported Musculoskeletal: No symptoms reported Skin: No symptoms reported Hematologic/Lymphatic: No symptoms reported Neurological/Psychological: No symptoms reported -: Yes All other systems reviewed and negative Physical Exam - Vital signs Vitals: Resp BP Pulse Ox 16 172/79 H 100 02/12/20 21:21 02/12/20 21:21 02/12/20 21:21 - Notes Notes: CONSTITUTIONAL [Vital signs reviewed, Patient appears comfortable, Alert and oriented X 3, Normal stature. Patient is on BiPAP and is able to state through the mask that she feels "so much better". Patient is morbidly obese] HEAD [Atraumatic, Normocephalic.] EYES [Eyes are normal to inspection, No discharge from eyes, Extraocular muscles intact, Sclera are normal, Conjunctiva are normal.] ENT [Ears normal to inspection, Nose examination normal, Posterior pharynx normal, Mouth normal to inspection.] NECK [Normal ROM, No jugular venous distention, No meningeal signs, no carotid bruit.] RESPIRATORY CHEST [Chest is nontender, Breath sounds diminished bilaterally, No respiratory distress.] CARDIOVASCULAR [RRR, No murmurs, Normal S1 S2, No rub, No gallop.] ABDOMEN [Abdomen is nontender, No pulsatile masses, No other masses, Bowel sounds april l, No distension, No peritoneal signs, No hernias.] BACK [There is no CVA Tenderness, There is no tenderness to palpation, Normal inspection.] UPPER EXTREMITY [Inspection normal, No cyanosis, No clubbing, No edema, 2+ radial pulses.] LOWER EXTREMITY [Inspection normal, No cyanosis, No clubbing, No edema, No calf tenderness, 2+ femoral pulses.] NEURO [No focal motor deficits, No focal sensory deficits, Speech normal.] SKIN [Skin is warm, Skin is dry, Skin is normal color.] LYMPHATIC [No adenopathy in neck.] PSYCHIATRIC [Normal affect. ] Course - Re-evaluation Re-evalutation: 02/12/20 23:07 Differential diagnosis: COPD exacerbation, bronchitis, pneumonia, ACS 02/12/20 23:10 Patient's status discussed with patient's daughter Latanya at 2300 hrs. at her phone number [phone]. 02/13/20 05:11 Patient was taken off of BiPAP and put on her normal 2 and half liters of oxygen. Patient was able to tolerate this well. Patient was able to get up and ambulate to the bathroom on 2-1/2 L. Patient stated prior to coming in tonight she was having trouble doing this at home. Patient states she feels much better at this time. Results of ED MSE discussed with patient. All questions were answered prior to discharge. Emergency signs and symptoms, reasons to return to the emergency department discussed with patient. - Vital Signs Vital signs: Temp Pulse Resp BP Pulse Ox 98.4 F 66 19 130/44 H 100 02/12/20 21:34 02/12/20 21:34 02/13/20 00:00 02/12/20 23:00 02/13/20 00:00 - Laboratory Result Diagrams: 02/12/20 21:25 02/12/20 21:25 Laboratory results interpreted by me: 02/12/20 02/12/20 21:25 21:25 RDW 16.5 H Carbon Dioxide 31 H Est GFR ( Amer) 58 L Est GFR (MDRD) Non-Af 48 L Glucose 172 H ALT 47 H Creatine Kinase 161 H - Diagnostic Test Radiology reviewed: Reports reviewed - EKG Interpretation by Me Additional EKG results interpreted by me: 02/12/20 23:08 EKG obtained on 02/12/2020 at 2150 hrs. was interpreted by this MD. Findings: Sinus bradycardia, rate 56, normal axis, ME intervals appear within normal limits, P waves preceding QRS complexes, QRS complexes appear narrow, QTC is within normal limits, there are no obvious patterns of ST segment elevation or depression present to suggest acute myocardial ischemia or infarction. When compared to prior EKG from 12/29/2019, there do not appear to be any significant changes and morphology is grossly the same. Impression: Sinus bradycardia with nonspecific ST segments. Discharge - Discharge Clinical Impression: COPD exacerbation Condition: Stable Disposition: HOME, SELF-CARE Additional Instructions: Return to the Emergency Department without delay if any worse. Chronic Obstructive Lung Disease You have chronic obstructive lung disease (COPD). The symptoms come from emphysema (damage to small airways, with trapping of air in large sacks in the lung) and chronic bronchitis (repeated infection and damage to larger airways). The cause is almost always cigarette smoking, although dust exposure, asthma, and infections contribute. You should avoid fumes, dust, and smoke (especially tobacco smoke). Your condition will flare from time to time. There is no cure, but the symptoms can be treated. Bronchodilators (asthma medicine) are often helpful. Antibiotics help when infection is present. When shortness of breath is severe, we may prescribe cortisone medication. If medicine doesn't help enough, we can arrange for you to have an oxygen tank at home. Notify your doctor at once if sputum becomes thick, foul, or bloody, if you develop a fever or chest pain, or if your shortness of breath worsens. HOME CARE INSTRUCTIONS & INFORMATION: Thank you for choosing us for your medical needs. We hope you're satisfied with the care you received. After you leave, you must properly care for your problem and, at the same time, observe its progress. Any condition can change. Some illnesses can change rapidly over hours or days. If your condition worsens, return to the Emergency Department or see your physician promptly. ABOUT YOUR X-RAYS AND EKG'S: If you had an EKG or X-rays taken, they have been read by the Emergency Physician. The X-rays and EKG's will also be read by a Radiologist or Turbine Measurements Engineer within 24 hours. If discrepancies are noted, you will be notified by telephone. Please be certain the ED has a correct telephone number & address where you can be reached. Also, realize that some fractures or abnormalities do not show up on initial X-rays. If your symptoms continue, see your physician. ABOUT YOUR LABORATORY TEST: If you had laboratory tests, the results have been reviewed by the Emergency Physician. Some test results (for example cultures) may not be available for several days. You will be contacted if any test result shows you need additional treatment. Please be certain the ED has a correct telephone number and address where you can be reached. ABOUT YOUR MEDICATIONS: You will receive instructions on how to take your medicine on the prescription label you receive. Additional information may be provided by the Pharmacy. If you have questions afterwards, call the ED for clarification or further instructions. Some prescribed medications may cause drowsiness. Do not perform tasks such as driving a car or operating machinery without consulting your Pharmacist. If you feel you need a refill of pain medication, your condition will need re-evaluation. Please do not call for a refill of any medication. ABOUT YOUR SIGNATURE: Signature of this document acknowledges to followin. Understanding that you received emergency treatment and that you may be released before al medical problems are known or treated. Please be certain the ED has a correct phone number & address where you can be reached. 2. Acknowledgement that you will arrange for follow-up care as recommended. 3. Authorization for the Emergency Physician to provide information to your follow-up Physician in order to maximize your care. AT ANY TIME, IF YOUR SYMPTOMS CHANGE SIGNIFICANTLY OR WORSEN OR YOU DEVELOP NEW SYMPTOMS, RETURN TO THE EMERGENCY DEPARTMENT IMMEDIATELY FOR RE-EVALUATION. OUR GOAL IS TO PROVIDE EXCELLENT MEDICAL CARE! WE HOPE THAT WE HAVE MET YOUR EXPECTATIONS DURING YOUR EMERGENCY DEPARTMENT VISIT AND THAT YOU FEEL YOU HAVE RECEIVED EXCELLENT CARE! Prescriptions: Prednisone [Deltasone 10 mg Tablet] 10 mg PO ASDIR PRN #21 tablet PRN Reason: Referrals: GUERITA GODOY MD [Primary Care Provider] - Follow up as needed
[2020-02-13 05:43] VITALS: BP 147/57
--- NOTE | 2020-02-14 02:35 | EKG REPORT ---
SEVERITY:- NORMAL ECG - SINUS BRADYCARDIA : Confirmed by: Srini Thompson MD 14-Feb-2020 02:34:15
== END 2020-02-13 05:42 | disposition home or self-care (01) ==
LOC: ER 21:20
DX: J44.1 Chronic obstructive pulmonary disease with (acute) exacerbation (principal)
CPT/HCPCS: 36415; 71045; 80053; 82550; 82553; 84484; 85025; 93005; 93010; 94640; 99285

== ENCOUNTER → 2020-02-17 | Outpatient (CLI) | payer MEDICARE, MEDICAID ==
[2020-02-17 15:37] LABS: HEMATOCRIT 38.8 % (36.0-47.0); HEMOGLOBIN 13.3 g/dL (12.0-15.5); MEAN CORPUSCULAR HEMOGLOBIN 28.2 pg (27.0-33.4); MEAN CORPUSCULAR HGB CONC 34.3 g/dL (32.0-36.0); MEAN CORPUSCULAR VOLUME 82 fl (80-97); PLATELET COUNT 294 10^3/uL (150-450); RED BLOOD COUNT 4.72 10^6/uL (3.72-5.28); RED CELL DISTRIBUTION WIDTH 16.6 % (11.5-14.0); WHITE BLOOD COUNT 9.4 10^3/uL (4.0-10.5)
[2020-02-17 15:52] LABS: ALBUMIN 4.8 g/dL (3.5-5.0); ALKALINE PHOSPHATASE 62 U/L (38-126); ASPARTATE AMINO TRANSFERASE 22 U/L (14-36); BILIRUBIN,DIRECT 0.4 mg/dL (0.0-0.4); BILIRUBIN,TOTAL 0.4 mg/dL (0.2-1.3); TOTAL PROTEIN 7.3 g/dL (6.3-8.2)
== END ==
LOC: OD 14:22
PROVIDERS: ATTEND Specialist
DX: G72.9 Myopathy, unspecified (principal); Z79.899 Other long term (current) drug therapy
CPT/HCPCS: 36415; 80076; 80156; 85027

== ENCOUNTER 2020-03-14 20:44 | Emergency (ER) | payer MEDICARE, MEDICAID ==
--- NOTE | 2020-03-14 21:15 | ER Document Report ---
ED General - General Chief Complaint: Shortness Of Breath Stated Complaint: SHORTNESS OF BREATH Time Seen by Provider: 03/14/20 20:51 Primary Care Provider: KATE MCDONALD MD [NO LOCAL MD] - Follow up as needed Information source: Patient TRAVEL OUTSIDE OF THE [place] IN LAST 30 DAYS: No - HPI Notes: Patient is a 69 y/o female with a history of COPD, asthma, and HTN who presents with worsening shortness of breath for the past three days. She was brought in by EMS and given Magnesium 2g IV, A/A breathing treatment, Xopenex and Solumedrol in route. She endorses worsening dyspnea on exertion, nonproductive cough, weakness and fatigue. She denies chest pain, fever, new onset headache, and dizziness. She is normally on 2.5L of O2 at home and uses BiPAP at rest. She also reports two bloody bowel movements today with bright red blood. She reports loose stools and nausea but denies vomiting, diarrhea, constipation and abdominal pain. Patient have a single hemorrhoid but has never had bloody bowel movements. Patient is a former smoker and quit two years ago. She denies alcohol and recreational drug use. - Related Data Allergies/Adverse Reactions: hydralazine Adverse Reaction (Mild, Verified 01/02/20 10:42) Tachycardia fluticasone [From Advair Diskus] Adverse Reaction (Verified 12/29/19 07:48) STOMACH CRAMPS salmeterol [From Advair Diskus] Adverse Reaction (Verified 12/29/19 07:48) STOMACH CRAMPS Past Medical History - General Information source: Patient - Social History Smoking Status: Former Smoker Chew tobacco use (# tins/day): No Frequency of alcohol use: None Drug Abuse: None Family History: Hypertension, Reviewed & Not Pertinent Patient has homicidal ideation: No - Past Medical History Cardiac Medical History: Reports: Hx Hypercholesterolemia, Hx Hypertension Denies: Hx Heart Attack Pulmonary Medical History: Reports: Hx Asthma, Hx COPD, Hx Pneumonia, Hx Sleep Apnea Denies: Hx Bronchitis Neurological Medical History: Denies: Hx Cerebrovascular Accident, Hx Seizures Renal/ Medical History: Denies: Hx Peritoneal Dialysis Musculoskeletal Medical History: Denies Hx Arthritis Psychiatric Medical History: Denies: Hx Depression Past Surgical History: Reports: Hx Cholecystectomy, Hx Orthopedic Surgery - left ankle, Hx Tonsillectomy - Immunizations Hx Diphtheria, Pertussis, Tetanus Vaccination: - UNSURE Hx Pneumococcal Vaccination: 06/02/15 Review of Systems - Review of Systems Constitutional: See HPI EENT: No symptoms reported Cardiovascular: No symptoms reported Respiratory: See HPI Gastrointestinal: See HPI Genitourinary: No symptoms reported Female Genitourinary: No symptoms reported Musculoskeletal: No symptoms reported Skin: No symptoms reported Hematologic/Lymphatic: No symptoms reported Neurological/Psychological: No symptoms reported Physical Exam - Vital signs Vitals: BP 180/95 H 03/14/20 20:49 - Notes Notes: PHYSICAL EXAMINATION: VITALS: Vital signs reviewed and patient is hypertensive. GENERAL: -[place] female sitting on the edge of her bed with a nasal canula in place. She appears to be in mild distress. HEAD: Atraumatic, normocephalic. EYES: Pupils equal, round, and reactive to light, extraocular movements intact, sclera anicteric, conjunctiva are normal. ENT: Nares patent, oropharynx clear without exudates. Moist mucous membranes. NECK: Normal range of motion, supple without lymphadenopathy. LUNGS: Breath sounds diminished posteriorally. Clear to auscultation bilaterally in the upper and lower lobes anteriorally. No wheezes rales or rhonchi. HEART: Regular, rate, and rhythm without murmurs. ABDOMEN: Soft, nontender, normoactive bowel sounds. No guarding, no rebound. No masses appreciated. RECTAL: No external hemorrhoids visualized. No palpable internal hemorrhoids. No gross blood. Good sphincter tone. EXTREMITIES: Normal range of motion, no pitting or edema. No cyanosis. NEUROLOGICAL: No focal neurological deficits. Moves all extremities spontaneously and on command. PSYCH: Normal mood, normal affect. SKIN: Warm, Dry, normal turgor, no rashes or lesions noted. Course - Re-evaluation Re-evalutation: Patient is a 69 y/o female with a hx of COPD, asthma and HTN who presents with worsening SOB and two bloody bowel movements. Patient is on 3L of O2 and she is hypertensive with BP of 180/95. She is afebrile. On exam, lungs are clear to auscultation in upper lobes. Unable to auscultate lower lobes. Abdomen soft and nontender. On rectal exam, no hemorrhoids visible or palpable and no obvious blood. Stool occult blood positive. CBC within normal limits with normal HGB of 12.8. VBG within normal limits. Troponin negative. pro-BNP within normal limits at 115. UA shows minimally elevated protein of 100 and small blood. Chest x-ray negative with no infiltrates or vascular congestion noted. I discussed the results with the patient. Her presentation and workup are consistent with a COPD exacerbation that improved with EMS treatment as she had no wheezing noted on exam and CXR was negative while oxygenating well on O2. I am suspicious that patient's rectal bleeding is due to her known internal hemorrhoid. She has not had a bloody BM here in the ED and her HGB is normal at 12.8. Patient reassessed and she appears nontoxic with nonlabored respirations. Patient is safe for discharge as long as she can ambulate well without dropping her O2 sat. 03/15/20 00:17 Ambulation with pulse ox completed. Patient was ambulated on 3L of O2 as she is on O2 at home. She was oxygenating well until the end when she began to wheeze with O2 sat of 91% and HR of 110. Patient has known COPD and as she is on oxygen at home, I feel she is safe for discharge. Patient discharged with return precautions and follow up instructions. 03/15/20 02:47 - Vital Signs Vital signs: Temp Pulse Resp BP Pulse Ox 98.1 F 20 152/56 H 98 03/15/20 00:28 03/15/20 00:01 03/15/20 00:01 03/15/20 00:01 - Laboratory Result Diagrams: 03/14/20 21:07 03/14/20 21:07 Laboratory results interpreted by me: 03/14/20 03/14/20 03/14/20 21:07 21:07 22:00 RDW 15.5 H Est GFR ( Amer) 55 L Est GFR (MDRD) Non-Af 46 L Glucose 122 H ALT 40 H Urine Protein 100 H Urine Blood SMALL H Discharge - Discharge Clinical Impression: COPD exacerbation, Rectal bleed, Shortness of breath Condition: Stable Disposition: HOME, SELF-CARE Instructions: COVID-19 Guidance for Persons Under Investigation Additional Instructions: Rectal Bleeding, Unclear Cause No definite cause has been found for the rectal bleeding you have experienced. Among the possible causes are internal or external hemorrhoids (internal hemorrhoids can't be felt on the outside), an anal fissure (a crack at the anal ring), infections or inflammatory diseases of the colon, tumors or polyps, or diverticula (diverticula are outpouchings from the colon wall). To establish a cause for your bleeding (or at least make certain there is no serious problem such as a tumor), further evaluation will be necessary. This may include special X-rays, or passage of a scope up into the colon. Be sure to keep your follow-up appointment. Should you develop brisk bleeding, abdominal pain, fever, lightheadedness, or fever, call the doctor or return at once. Chronic Obstructive Lung Disease You have chronic obstructive lung disease (COPD). The symptoms come from emphysema (damage to small airways, with trapping of air in large sacks in the lung) and chronic bronchitis (repeated infection and damage to larger airways). The cause is almost always cigarette smoking, although dust exposure, asthma, and infections contribute. You should avoid fumes, dust, and smoke (especially tobacco smoke). Your condition will flare from time to time. There is no cure, but the symptoms can be treated. Bronchodilators (asthma medicine) are often helpful. Antibiotics help when infection is present. When shortness of breath is severe, we may prescribe cortisone medication. If medicine doesn't help enough, we can arrange for you to have an oxygen tank at home. Notify your doctor at once if sputum becomes thick, foul, or bloody, if you develop a fever or chest pain, or if your shortness of breath worsens. Prescriptions: Prednisone [Deltasone 20 mg Tablet] 60 mg PO DAILY 5 Days #15 tablet Famotidine [Pepcid 20 mg Tablet] 20 mg PO BID #12 tablet Referrals: KATE MCDONALD MD [NO LOCAL MD] - Follow up as needed
[2020-03-14 21:29] LABS: ABSOLUTE EOSINOPHILS # (AUTO) 0.2 10^3/uL (0.0-0.6); ABSOLUTE LYMPHOCYTES (AUTO) 0.9 10^3/uL (0.5-4.7); ABSOLUTE MONOCYTES (AUTO) 0.4 10^3/uL (0.1-1.4); ABSOLUTE NEUT (AUTO) 3.5 10^3/uL (1.7-8.2); BASOPHILS % (AUTO) 0.7 % (0-2); EOSINOPHILS % (AUTO) 4.7 % (0-6); HEMATOCRIT 37.8 % (36.0-47.0); HEMOGLOBIN 12.8 g/dL (12.0-15.5); LYMPHOCYTES % (AUTO) 18.4 % (13-45); MEAN CORPUSCULAR HEMOGLOBIN 28.8 pg (27.0-33.4); MEAN CORPUSCULAR VOLUME 85 fl (80-97); PLATELET COUNT 266 10^3/uL (150-450); RED BLOOD COUNT 4.46 10^6/uL (3.72-5.28); RED CELL DISTRIBUTION WIDTH 15.5 % (11.5-14.0); SEGMENTED NEUTROPHILS % (AUTO) 69.2 % (42-78); TOTAL CELLS COUNTED % (AUTO) 100 %
[2020-03-14 21:48] LABS: VENOUS BLOOD BASE EXCESS -0.9 mmol/L; VENOUS BLOOD HCO3 26.4 mmol/L (20-32); VENOUS BLOOD PCO2 55.1 mmHg (35-63); VENOUS BLOOD PH 7.3 (7.30-7.42)
[2020-03-14 21:50] LABS: ALBUMIN 4.6 g/dL (3.5-5.0); ALKALINE PHOSPHATASE 66 U/L (38-126); ANION GAP 11 (5-19); ASPARTATE AMINO TRANSFERASE 30 U/L (14-36); BILIRUBIN,DIRECT 0.3 mg/dL (0.0-0.4); BILIRUBIN,TOTAL 0.4 mg/dL (0.2-1.3); BLOOD UREA NITROGEN 13 mg/dL (7-20); CALCIUM 9.3 mg/dL (8.4-10.2); CARBON DIOXIDE 26 mmol/L (22-30); CHLORIDE 103 mmol/L (98-107); GLUCOSE 122 mg/dL (75-110); POTASSIUM 4.3 mmol/L (3.6-5.0); TOTAL PROTEIN 7.2 g/dL (6.3-8.2)
[2020-03-14 22:02] LABS: NT PRO BNP 115 pg/mL (<125)
[2020-03-14 22:06] LABS: TROPONIN I < 0.012 ng/mL
[2020-03-14 22:26] LABS: APPEARANCE,URINE CLEAR; BILIRUBIN,URINE NEGATIVE (NEGATIVE); COLOR,URINE STRAW; GLUCOSE, URINE NEGATIVE (NEGATIVE); KETONES,URINE NEGATIVE (NEGATIVE); LEUKOCYTE ESTERASE,URINE NEGATIVE (NEGATIVE); NITRITE,URINE NEGATIVE (NEGATIVE); PROTEIN,URINE 100 mg/dL (NEGATIVE); URINE SPECIFIC GRAVITY 1.012; UROBILINOGEN,URINE NEGATIVE mg/dL (<2.0)
--- NOTE | 2020-03-14 22:26 | RADIOLOGY REPORT (SQ) ---
CHEST X-RAY 1 VIEW on 03/14/2020 at 9:50 PM CLINICAL INDICATION: Shortness of breath COMPARISON: 02/12/2020 FINDINGS: Mild vascular calcification is noted in the aorta. There is mild linear atelectasis or scarring in the right lung base. The lungs are otherwise clear. Cardiac, hilar and mediastinal contours are within normal limits. Pulmonary vascularity is within normal limits. Old right rib fractures are noted. IMPRESSION: No significant change and no acute disease.
[2020-03-15 00:30] VITALS: BP 152/56
--- NOTE | 2020-03-15 22:09 | EKG REPORT ---
SEVERITY:- OTHERWISE NORMAL ECG - SINUS RHYTHM ATRIAL PREMATURE COMPLEX : Confirmed by: Quoc Huston 15-Mar-2020 22:07:53
== END 2020-03-15 00:40 | disposition home or self-care (01) ==
LOC: ER 20:44
DX: R06.02 Shortness of breath (principal); J44.1 Chronic obstructive pulmonary disease with (acute) exacerbation; K62.5 Hemorrhage of anus and rectum; Z20.828 Contact with and (suspected) exposure to other viral communicable diseases
CPT/HCPCS: 93005; 99285; 36415; 85025; 82270; 80053; 81001; 84484; 82803; 83880; 71045; 93010; U0003; C9803; 87635